=== PATIENT | male | born 1955 ===

== ENCOUNTER 2022-12-17 11:40 | Inpatient (IN) ==
[2022-12-17] MEDS ORDERED: LORazepam 2 MG/1 ML VIAL IM STA (12:25)
[2022-12-17] MEDS ORDERED: diphenhydrAMINE 50 MG/ML VIAL IM STA (12:29)
[2022-12-17] MEDS ORDERED: HALOPERIDOL LACTATE 5 MG/ML 1 ML VIAL IM STA (12:29)
--- NOTE | 2022-12-17 12:35 | Emergency Department Note ---
History of Present Illness General Chief complaint: Mental Health Evaluation Stated complaint: MHID Time Seen by Provider: 12/17/22 11:45 Source: RN notes reviewed and other (Psychiatric ed case manager) History of Present Illness Provider complaint: Mental health evaluation 67-year-old male presents emergency department via EMS from [facility]. Per nursing, the administration approached the patient about sharing room and then became verbally abusive threatening staff stating that he will kill people and started throwing things at people. Patient also stated he was going to take a gun and shoot himself. [facility] sent the patient here for 302 ev aluation. Home Medications Medication Instructions Recorded Confirmed Type Acetaminophen Pain Relief 650 mg PO Q6 PRN Fever 12/17/22 12/17/22 History Dulcolax Stool Softener (dss) See Rx Instructions .Route 12/17/22 12/17/22 History .COMPLEX constipation Glucagon Emergency Kit 1 applicator IM Q15M PRN 12/17/22 12/17/22 History hypoglycemia <60 Insta-Glucose 1 applicator PO PRN Hypoglycemia 12/17/22 History Milk of Magnesia 30 ml PO PRN Constipation 12/17/22 12/17/22 History acetaminophen 650 mg PO Q6H PRN Pain 12/17/22 12/17/22 History aripiprazole 5 mg tablet 5 mg PO QAM 12/17/22 12/17/22 History furosemide 20 mg tablet 20 mg 1XD 12/17/22 12/17/22 History lamotrigine 25 mg tablet 50 mg 1XD 12/17/22 12/17/22 History nicotine 1 patch 1XD 12/17/22 12/17/22 History pantoprazole 40 mg tablet,delayed 40 mg PO 1XD PRN Acid Reflux 12/17/22 12/17/22 History release sertraline 100 mg tablet 100 mg PO 1XD 12/17/22 12/17/22 History Past Med/Surg History Medical History (Updated 12/17/22 @ 19:07 by Flaco Guerin) COPD (chronic obstructive pulmonary disease) Diabetes Heart failure Intellectual disability Schizoaffective disorder Social History (Updated 12/17/22 @ 12:35 by Flaco Guerin) Smoking Status: Current every day smoker Feels Safe at Home: Declines to Answer Physical Exam Vital Signs Vital Signs - 24 hr 12/17/22 11:58 12/17/22 18:53 Temperature 36.9 C Temperature Source Oral Pulse Rate 101 H Pulse Rate [Right Finger] 99 H Pulse Rhythm Regular Pulse Strength Normal Respiratory Rate 18 18 Respiratory Effort / Characteristics Non-Labored Spontaneous Non-Labored Respiratory Depth Normal Normal Respiratory Pattern Regular Blood Pressure 100/73 Blood Pressure [Right Arm] 112/75 Blood Pressure Mean 82 Blood Pressure Mean [Right Arm] 87 Blood Pressure Position Sitting Pulse Oximetry 94 97 Oxygen Delivery Method Room Air Room Air Sepsis Recent Fever Within 48 Hours No Sepsis New/Unexplained Change in Mental Status No Sepsis Action Taken by Nursing No Action Required Physical Exam GENERAL: Patient appears angry punching the wall. Refusing to answer any questions. SKIN: Skin is warm and dry. He is not diaphoretic. PSYCH: Patient appears very angry. Course Course 1145: The patient was evaluated in room A7. A complete history and physical exam was performed with ed case manager Janny at bedside. Patient appears very angry punching arreguin. Patient will be tried to be calmed down with medications IM. External medical records reviewed from heart side patient has a history of intellectual disability, current everyday smoker, schizoaffective disorder, COPD, diabetes, and heart failure. 1800: Vital signs stable. Patient calmed down and allowed for labs and imaging to be conducted. No pharmacological intervention was needed. Labs within normal limits with exception of magnesium of 1.4. Magnesium replaced in the emergency department. Imaging within normal limits. Patient cleared medically. Patient denied SI or HI. Patient cleared for discharge back to [facility]. manager chinese Janny tried to contact the patient's current residence at [facility] but facility will not accept the patient. Administration made aware. See Marilyn note. [facility]. Administered Medications Discontinued Medications Diphenhydramine HCl (Diphenhydramine 50 Mg/Ml Vial) 50 mg IM NOW STA Stop: 12/17/22 12:30 Last Admin: 12/17/22 16:48 Dose: Not Given Documented By: PITO Haloperidol Lactate (Haloperidol Lactate 5 Mg/Ml 1 Ml Vial) 5 mg IM NOW STA Stop: 12/17/22 12:30 Last Admin: 12/17/22 16:49 Dose: Not Given Documented By: PITO Magnesium Sulfate/Dextrose (Magnesium Sulfate / D5w) 1 gm in 100 mls @ 100 mls/hr IV Q1H [facility] Stop: 12/17/22 16:03 Last Infusion: 12/17/22 17:02 Dose: 0 mls/hr Documented By: Admin: 12/17/22 15:52 Dose: 100 mls/hr Documented By: Infusion: 12/17/22 15:52 Dose: 100 mls/hr Documented By: Admin: 12/17/22 14:56 Dose: 100 mls/hr Documented By: RUSTY Lorazepam (Lorazepam 2 Mg/1 Ml Vial) 2 mg IM NOW STA Stop: 12/17/22 12:26 Last Admin: 12/17/22 16:48 Dose: Not Given Documented By: PITO Medical Decision Making Laboratory Data Attestation: I reviewed the patient's lab results. 12/17/22 12:39 12/17/22 12:39 Lab Results 12/17/22 12/17/22 12/17/22 Range/Units 12:33 12:39 12:39 WBC 6.69 (4.8-10.8) K/ul RBC 4.11 L (4.70-6.10) M/uL Hgb 11.2 L (14.0-18.0) g/dl Hct 34.3 L (42.0-52.0) % MCV 83.5 (80.0-100.0) fL MCH 27.3 (25.0-34.0) pg MCHC 32.7 (32.0-36.0) g/dL RDW Std Deviation 45.9 (36.4-46.3) fL RDW Coeff of Rachelle 15.1 H (11.5-14.5) % Plt Count 208 (130-400) K/uL MPV 12.7 H (9.4-12.4) fL Immature Gran % (Auto) 0.7 % Neut % (Auto) 67.6 % Lymph % (Auto) 16.6 % Keith % (Auto) 12.4 % Eos % (Auto) 1.8 % Baso % (Auto) 0.9 % Neut # (Auto) 4.52 (1.40-6.50) K/uL Lymph # (Auto) 1.11 L (1.2-3.4) K/uL Keith # (Auto) 0.83 H (0.11-0.59) K/uL Eos # (Auto) 0.12 (0-0.50) K/uL Baso # (Auto) 0.06 (0-0.2) K/uL Immature Gran # (Auto) 0.05 (0.01-0.20) K/uL Sodium 139 (136-145) mmol/L Potassium 3.8 (3.5-5.1) mmol/L Chloride 101 (98-107) mmol/L Carbon Dioxide 30 (21-32) mmol/L Anion Gap 8 (3-11) BUN 17 (6-23) mg/dl Creatinine 0.90 (0.6-1.4) mg/dl Est Cr Clr Drug Dosing 89.7 ml/min Est GFR ( Amer) 103.5 ml/min Est GFR (Non-Af Amer) 89.3 ml/min BUN/Creatinine Ratio 18.9 (10-20) Glucose 144 H (70-99(Fasting)) mg/dl Calcium 9.5 (8.5-10.1) mg/dl Magnesium 1.4 L (1.7-2.4) mg/dl Total Bilirubin 0.3 (0.2-1.0) mg/dl AST 13 (13-39) U/L ALT 18 (7-52) U/L Alkaline Phosphatase 66 (34-104) U/L Total Protein 6.9 (6.0-8.3) gm/dl Albumin 4.1 (3.4-5.0) gm/dl Globulin 2.8 (2.5-4.0) gm/dl Albumin/Globulin Ratio 1.5 (0.9-2) Lipase 16 (11-82) U/L TSH (0.300-4.500) uIu/ml Urine Color Urine Appearance (Clear) Urine pH (4.5-7.5) Ur Specific [place] (1.000-1.030) Urine Protein (Negative) Urine Glucose (UA) (Negative) Urine Ketones (Negative) Urine Blood (Negative) Urine Nitrite (Negative) Urine Bilirubin (Negative) Urine Urobilinogen (Negative) Ur Leukocyte Esterase (Negative) Urine WBC (Auto) (0-5) /hpf Urine RBC (Auto) (0-4) /hpf U Hyaline Cast (Auto) (0-5) /lpf U Epithel Cells (Auto) (0-5) /lpf Urine Bacteria (Auto) (Negative) Salicylates (3.0-30) mg/dl Urine Opiates Screen (Neg) Ur Methadone, Qual (Neg) Acetaminophen (10-30) ug/ml Urine Barbiturates (Neg) Ur Phencyclidine (PCP) (Neg) U Amphetamin/Meth Scrn (Neg) MDMA (Ecstasy) Screen (Neg) U Benzodiazepines Scrn (Neg) Ur Cocaine Metabolite (Neg) U Marijuana (THC) Screen (Neg) Ethyl Alcohol mg/dL (<10.0) mg/dl SARS-CoV-2, RNA, NAAT NEGATIVE (NEGATIVE) 12/17/22 12/17/22 12/17/22 Range/Units 12:39 12:39 12:39 WBC (4.8-10.8) K/ul RBC (4.70-6.10) M/uL Hgb (14.0-18.0) g/dl Hct (42.0-52.0) % MCV (80.0-100.0) fL MCH (25.0-34.0) pg MCHC (32.0-36.0) g/dL RDW Std Deviation (36.4-46.3) fL RDW Coeff of Rachelle (11.5-14.5) % Plt Count (130-400) K/uL MPV (9.4-12.4) fL Immature Gran % (Auto) % Neut % (Auto) % Lymph % (Auto) % Keith % (Auto) % Eos % (Auto) % Baso % (Auto) % Neut # (Auto) (1.40-6.50) K/uL Lymph # (Auto) (1.2-3.4) K/uL Keith # (Auto) (0.11-0.59) K/uL Eos # (Auto) (0-0.50) K/uL Baso # (Auto) (0-0.2) K/uL Immature Gran # (Auto) (0.01-0.20) K/uL Sodium (136-145) mmol/L Potassium (3.5-5.1) mmol/L Chloride (98-107) mmol/L Carbon Dioxide (21-32) mmol/L Anion Gap (3-11) BUN (6-23) mg/dl Creatinine (0.6-1.4) mg/dl Est Cr Clr Drug Dosing ml/min Est GFR ( Amer) ml/min Est GFR (Non-Af Amer) ml/min BUN/Creatinine Ratio (10-20) Glucose (70-99(Fasting)) mg/dl Calcium (8.5-10.1) mg/dl Magnesium (1.7-2.4) mg/dl Total Bilirubin (0.2-1.0) mg/dl AST (13-39) U/L ALT (7-52) U/L Alkaline Phosphatase (34-104) U/L Total Protein (6.0-8.3) gm/dl Albumin (3.4-5.0) gm/dl Globulin (2.5-4.0) gm/dl Albumin/Globulin Ratio (0.9-2) Lipase (11-82) U/L TSH 2.209 (0.300-4.500) uIu/ml Urine Color Urine Appearance (Clear) Urine pH (4.5-7.5) Ur Specific [place] (1.000-1.030) Urine Protein (Negative) Urine Glucose (UA) (Negative) Urine Ketones (Negative) Urine Blood (Negative) Urine Nitrite (Negative) Urine Bilirubin (Negative) Urine Urobilinogen (Negative) Ur Leukocyte Esterase (Negative) Urine WBC (Auto) (0-5) /hpf Urine RBC (Auto) (0-4) /hpf U Hyaline Cast (Auto) (0-5) /lpf U Epithel Cells (Auto) (0-5) /lpf Urine Bacteria (Auto) (Negative) Salicylates < 3.0 L (3.0-30) mg/dl Urine Opiates Screen (Neg) Ur Methadone, Qual (Neg) Acetaminophen < 3 L (10-30) ug/ml Urine Barbiturates (Neg) Ur Phencyclidine (PCP) (Neg) U Amphetamin/Meth Scrn (Neg) MDMA (Ecstasy) Screen (Neg) U Benzodiazepines Scrn (Neg) Ur Cocaine Metabolite (Neg) U Marijuana (THC) Screen (Neg) Ethyl Alcohol mg/dL < 10.0 (<10.0) mg/dl SARS-CoV-2, RNA, NAAT (NEGATIVE) 12/17/22 12/17/22 Range/Units 14:15 14:15 WBC (4.8-10.8) K/ul RBC (4.70-6.10) M/uL Hgb (14.0-18.0) g/dl Hct (42.0-52.0) % MCV (80.0-100.0) fL MCH (25.0-34.0) pg MCHC (32.0-36.0) g/dL RDW Std Deviation (36.4-46.3) fL RDW Coeff of Rachelle (11.5-14.5) % Plt Count (130-400) K/uL MPV (9.4-12.4) fL Immature Gran % (Auto) % Neut % (Auto) % Lymph % (Auto) % Keith % (Auto) % Eos % (Auto) % Baso % (Auto) % Neut # (Auto) (1.40-6.50) K/uL Lymph # (Auto) (1.2-3.4) K/uL Keith # (Auto) (0.11-0.59) K/uL Eos # (Auto) (0-0.50) K/uL Baso # (Auto) (0-0.2) K/uL Immature Gran # (Auto) (0.01-0.20) K/uL Sodium (136-145) mmol/L Potassium (3.5-5.1) mmol/L Chloride (98-107) mmol/L Carbon Dioxide (21-32) mmol/L Anion Gap (3-11) BUN (6-23) mg/dl Creatinine (0.6-1.4) mg/dl Est Cr Clr Drug Dosing ml/min Est GFR ( Amer) ml/min Est GFR (Non-Af Amer) ml/min BUN/Creatinine Ratio (10-20) Glucose (70-99(Fasting)) mg/dl Calcium (8.5-10.1) mg/dl Magnesium (1.7-2.4) mg/dl Total Bilirubin (0.2-1.0) mg/dl AST (13-39) U/L ALT (7-52) U/L Alkaline Phosphatase (34-104) U/L Total Protein (6.0-8.3) gm/dl Albumin (3.4-5.0) gm/dl Globulin (2.5-4.0) gm/dl Albumin/Globulin Ratio (0.9-2) Lipase (11-82) U/L TSH (0.300-4.500) uIu/ml Urine Color Yellow Urine Appearance Clear (Clear) Urine pH 5.5 (4.5-7.5) Ur Specific [place] 1.012 (1.000-1.030) Urine Protein Negative (Negative) Urine Glucose (UA) Negative (Negative) Urine Ketones Negative (Negative) Urine Blood Negative (Negative) Urine Nitrite Negative (Negative) Urine Bilirubin Negative (Negative) Urine Urobilinogen Negative (Negative) Ur Leukocyte Esterase Trace H (Negative) Urine WBC (Auto) 5-10 H (0-5) /hpf Urine RBC (Auto) 0-4 (0-4) /hpf U Hyaline Cast (Auto) 1-5 (0-5) /lpf U Epithel Cells (Auto) 10-20 H (0-5) /lpf Urine Bacteria (Auto) Negative (Negative) Salicylates (3.0-30) mg/dl Urine Opiates Screen Neg (Neg) Ur Methadone, Qual Neg (Neg) Acetaminophen (10-30) ug/ml Urine Barbiturates Neg (Neg) Ur Phencyclidine (PCP) Neg (Neg) U Amphetamin/Meth Scrn Neg (Neg) MDMA (Ecstasy) Screen Neg (Neg) U Benzodiazepines Scrn Neg (Neg) Ur Cocaine Metabolite Neg (Neg) U Marijuana (THC) Screen Neg (Neg) Ethyl Alcohol mg/dL (<10.0) mg/dl SARS-CoV-2, RNA, NAAT (NEGATIVE) Imaging Data Attestation: I personally reviewed and interpreted this imaging study as follows: Radiologist's Impression: Head CT 12/17/22 12:25 CT OF THE HEAD WITHOUT CONTRAST CLINICAL HISTORY: Altered mental status. Possible COMPARISON STUDY: No previous studies for comparison. CT DOSE: 1834.47 mGy.cm TECHNIQUE: Helical axial images of the head were obtained without IV contrast. Automated exposure control was utilized for the study. A dose lowering technique was utilized adhering to the principles of ALARA. FINDINGS: No acute intracranial hemorrhage, midline shift or mass effect is present. Ventricular system is unremarkable. Basal cisterns are patent. There are no extra axial collections. White matter hypodensity suggests small vessel disease. There are no findings to suggest acute dural sinus thrombosis or acute territorial infarct. Numerous small several lucencies are indeterminate although probably benign. Small amount of fluid within the bilateral mastoid air cells is noted. Opacified posterior right ethmoid air cell is noted. There are minimal secretions within the left maxillary sinus. IMPRESSION: No acute intracranial findings. ACT 112: Negative or not required by law. Electronically signed by: Ty Diego M.D. 12/17/2022 1:21 PM [facility] Narrative 1145: The patient was evaluated in room A7. A complete history and physical exam was performed with ed case manager Janny at bedside. Patient appears very angry punching arreguin. Patient will be tried to be calmed down with medications IM. External medical records reviewed from heart side patient has a history of intellectual disability, current everyday smoker, schizoaffective disorder, COPD, diabetes, and heart failure. 1800: Vital signs stable. Patient calmed down and allowed for labs and imaging to be conducted. No pharmacological intervention was needed. Labs within normal limits with exception of magnesium of 1.4. Magnesium replaced in the emergency department. Imaging within normal limits. Patient cleared medically. Patient denied SI or HI. Patient cleared for discharge back to [facility]. manager chinese Janny tried to contact the patient's current residence at [facility] but facility will not accept the patient. Administration made aware. See Marilyn note. Patient will be admitted to the [facility] hospitalist team Dr. Ambrocio notified. Impression & Plan Hypomagnesemia, Schizoaffective disorder, Intellectual disability Discharge Plan Visit Data Chief Complaint: Mental Health Evaluation Stated Complaint: MHID ED Provider: Flaco Guerin Discharge Problem: Hypomagnesemia, Schizoaffective disorder, Intellectual disability Patient Disposition: Being Evaluated by Hospitalist Forms Stand Alone Forms: [facility], Suicide Prevention Resources Prescriptions Prescriptions: No Action Acetaminophen Pain Relief tablet 650 mg PO Q6 MDD 3000 mg PRN (Reason: Fever) acetaminophen tablet 650 mg PO Q6H MDD 3000mg PRN (Reason: Pain) sertraline 100 mg tablet 100 mg PO 1XD lamotrigine 25 mg tablet 50 mg 1XD Rx Instructions: Lamictal XR pantoprazole 40 mg tablet,delayed release (DR/EC) 40 mg PO 1XD PRN (Reason: Acid Reflux) furosemide 20 mg tablet 20 mg 1XD aripiprazole 5 mg tablet 5 mg PO QAM Dulcolax Stool Softener (dss) suppository See Rx Instructions .ROUTE .COMPLEX Rx Instructions: 10 mg rectally in the evening of the third day with no BM Glucagon Emergency Kit 1 applicator IM Q15M PRN (Reason: hypoglycemia <60) Insta-Glucose 1 applicator PO PRN (Reason: Hypoglycemia) Milk of Magnesia 1,200 mg/15 ml liquid 30 ml PO PRN (Reason: Constipation) Rx Instructions: 30ml po on morning of 3rd day with no bowel movement nicotine 14 mg/24 hr 1 patch 1XD Rx Instructions: one patch per day for 2 weeks; end on 12/20/22 Referrals Referrals: [facility] [Primary Care Provider] -
--- NOTE | 2022-12-17 13:24 | CT Scan Report ---
CT OF THE HEAD WITHOUT CONTRAST CLINICAL HISTORY: Altered mental status. Possible COMPARISON STUDY: No previous studies for comparison. CT DOSE: 1834.47 mGy.cm TECHNIQUE: Helical axial images of the head were obtained without IV contrast. Automated exposure con trol was utilized for the study. A dose lowering technique was utilized adhering to the principles o f ALARA. FINDINGS: No acute intracranial hemorrhage, midline shift or mass effect is present. Ventricular syst em is unremarkable. Basal cisterns are patent. There are no extra axial collections. White matter hyp odensity suggests small vessel disease. There are no findings to suggest acute dural sinus thrombosis or acute territorial infarct. Numerous small several lucencies are indeterminate although probably b enign. Small amount of fluid within the bilateral mastoid air cells is noted. Opacified posterior rig ht ethmoid air cell is noted. There are minimal secretions within the left maxillary sinus. IMPRESSION: No acute intracranial findings. ACT 112: Negative or not required by law. Electronically signed by: Ty Diego M.D. 12/17/2022 1:21 PM
[2022-12-17 13:50] LABS: Acetaminophen < 3 ug/ml (10-30); Salicylate < 3.0 mg/dl (3.0-30)
[2022-12-17 13:53] LABS: Albumin Globulin Ratio 1.5 (0.9-2); Albumin Level 4.1 gm/dl (3.4-5.0); BUN Creatinine Ratio 18.9 (10-20); Bilirubin,Total 0.3 mg/dl (0.2-1.0); Calcium 9.5 mg/dl (8.5-10.1); Creatinine Clr Calc Pharmacy 89.7 ml/min; Est GFR (African American) 103.5 ml/min; Est GFR (Non-African American) 89.3 ml/min; Globulin 2.8 gm/dl (2.5-4.0); Magnesium 1.4 mg/dl (1.7-2.4); Potassium 3.8 mmol/L (3.5-5.1); Total Protein 6.9 gm/dl (6.0-8.3)
[2022-12-17 13:57] LABS: Basophils # (auto) 0.06 K/uL (0-0.2); Basophils % (auto) 0.9 %; Eosinophils # (auto) 0.12 K/uL (0-0.50); Eosinophils % (auto) 1.8 %; Hematocrit (blood only) 34.3 % (42.0-52.0); Hemoglobin 11.2 g/dl (14.0-18.0); Immature Granulocytes # (auto) 0.05 K/uL (0.01-0.20); Immature Granulocytes % (auto) 0.7 %; Lymphocytes # (auto) 1.11 K/uL (1.2-3.4); Lymphocytes % (auto) 16.6 %; Mean Corpuscular Hemoglobin 27.3 pg (25.0-34.0); Mean Corpuscular Hgb Conc 32.7 g/dL (32.0-36.0); Mean Corpuscular Volume 83.5 fL (80.0-100.0); Mean Platelet Volume 12.7 fL (9.4-12.4); Monocytes # (auto) 0.83 K/uL (0.11-0.59); Monocytes % (auto) 12.4 %; Neutrophils # (auto) 4.52 K/uL (1.40-6.50); Neutrophils % (auto) 67.6 %; Platelet Count 208 K/uL (130-400); RDW Coefficient of Variation 15.1 % (11.5-14.5); RDW Standard Deviation 45.9 fL (36.4-46.3); Red Blood Count 4.11 M/uL (4.70-6.10); White Blood Count 6.69 K/ul (4.8-10.8)
[2022-12-17] MEDS: MAGNESIUM SULFATE / D5W 1 GM/100 ML BAG IV SCH ×2 (14:56→15:52)
[2022-12-17 15:36] LABS: Appearance Urine Clear (Clear); Bacteria Urine Automated Negative (Negative); Bilirubin Urine Negative (Negative); Blood Urine Negative (Negative); Color Urine Yellow; Glucose Urine UA Negative (Negative); Ketones Urine Negative (Negative); Leukocyte Esterase Urine Trace (Negative); Nitrite Urine Negative (Negative); Protein Urine Negative (Negative); RBC Urine Automated 0-4 /hpf (0-4); Specific Gravity Urine 1.012 (1.000-1.030); Urobilinogen Urine Negative (Negative); pH Urine 5.5 (4.5-7.5)
[2022-12-17 16:00] LABS: Amphetamines+Metham, Urine Neg (Neg); Barbiturates, Urine Neg (Neg); Benzodiazepine, Urine Neg (Neg); Cocaine, Urine Neg (Neg); MDMA (Ecstacy), Urine Neg (Neg); Methadone, Urine Neg (Neg); Opiate, Urine Neg (Neg); Phencyclidine, Urine Neg (Neg)
--- NOTE | 2022-12-17 19:09 | History & Physical Report ---
Date of Service December 17, 2022 Assessment & Plan (1) Homeless: Plan: -Admit to med/surge -The patient is currently afebrile, hemodynamically stable, and stable on RA -Was sent in from [facility] for 302 eval due to aggression, suicidal threats -Workup has been negative but [facility] refuses to take the patient back -CM will be filing a complaint with the Department of Health and will continue to assist with placement of the patient -Will order PT/OT consults -Patient is currently calm, cooperative, and denies suicidal and homicidal ideations -HR was irregular on exam, unsure if previous arrhythmia, will obtain STAT ECG for rhythm interpretation and QTc monitoring -S/P 2 mg IV ativan, 5 mg IM haldol, and 50 mg IM benadryl prior to admission, for now will order PRN IV ativan for aggression/agitiation -Would hold additional QT prolonging medications until we know his QTc -Will place psychiatry consult -AM CBC and BMP (2) Hypomagnesemia: Plan: -Noted to be 1.4 today -S/P 2g IV mag in the ED -Monitor am mag level (3) Heart failure: Plan: -Patient with a CHF in his problem list, no previous echos available -Patient has a systolic murmur on exam -Examines euvolemic at this time -Does have lasix on his med rec but will hold for now as he is euvolemic -Could consider a TTE during his admission if needed (4) Diabetes: Plan: -Does not appear to be on an antihyperglycemic regimen -Will start with 5 units lantus BID, correction factor of 40 with carb ratio of 14 -Monitor BSG ACHS, goal is 110-140 -DM II diet -Will obtain AM A1c (5) COPD (chronic obstructive pulmonary disease): Plan: -Stable on RA -No current breathing treatments on med rec -Will start with pulm hygiene and prn DuoNebs (6) Intellectual disability: Plan: -It does not appear that the patient has decision making capabilities at this time (7) Schizoaffective disorder: Plan: -Continue Abilify, Lamictal, and sertraline Plan The patient was discussed with Dr. Ambrocio at the time of the admission History of Present Illness Chief Complaint: 302 evaluation Primary Care Provider: [facility] Mustapha is a 67 year old male with a PMH significant for CHF, COPD, DM II, schizoaffective disorder, intellectual disability who presented to the [facility] ED on 12/17/22 from [facility] for a 302 evaluation. Per the ED staff, the staff at [facility] spoke to the patient earlier today regarding getting a roommate. The patient reportedly became incredibly agitated, verbally abusing, was throwing objects at staff and threatened to kill himself with a gun. In the ED, the patient was found to be afebrile hemodynamically stable, stable on RA. CBC shows a normal WBC, stable Hgb, and platelet count, CMP shows stable cr at 0.9 with a mag of 1.4 but otherwise stable electrolytes, glucose of 144, LFTs WNL, TSH WNL, UA with trace leukocyte esterase, 5-10 WBCs, and negative bacteria, urine tox screen and covid negative. The ED staff did not think that the patient was suicidal or homicidal and attempted to send the patient back to [facility] but they refused to take the patient back. CM will continue to help with the current situation and they will be filling a complaint with the Department of Health. Prior to admission the patient was given 50 mg IM benadryl, 5 mg IM haldol, 2 mg IV ativan, and 2 bags of IV magnesium. At the time of the exam the patient was sitting comfortably on the side of his bed in no acute distress. History is difficult to obtain due to the patient's baseline mental status. He states that he was sent to the ER because he woke up in another room and got angry. He states that he is homeless and has nowhere else to go. He then told me that both of his parent's passed but then came back to life years ago. He spoke about his mom "walking through [place]". I asked him if felt as though he was going to hurt himself or hurt others he said "no" to both. He had no complaints at the time of the exam. I asked him to be knd to our staff and we will work to find a safe place for him to go and he was in agreement. The patient did mention that he gets seizures and takes "seizure medication" but is unsure of when his last seizure was. Please refer to Dr. Ambrocio's attestation for any changes to the treatment plan Allergies Allergy/AdvReac Type Severity Reaction Status Date / Time No Known Allergies Allergy Unverified 12/17/22 19:54 Home Medications Medication Instructions Recorded Confirmed Type Acetaminophen Pain Relief 650 mg PO Q6 PRN Fever 12/17/22 12/17/22 History Dulcolax Stool Softener (dss) See Rx Instructions .Route 12/17/22 12/17/22 History .COMPLEX constipation Glucagon Emergency Kit 1 applicator IM Q15M PRN 12/17/22 12/17/22 History hypoglycemia <60 Insta-Glucose 1 applicator PO PRN Hypoglycemia 12/17/22 History Milk of Magnesia 30 ml PO PRN Constipation 12/17/22 12/17/22 History acetaminophen 650 mg PO Q6H PRN Pain 12/17/22 12/17/22 History aripiprazole 5 mg tablet 5 mg PO QAM 12/17/22 12/17/22 History furosemide 20 mg tablet 20 mg 1XD 12/17/22 12/17/22 History lamotrigine 25 mg tablet 50 mg 1XD 12/17/22 12/17/22 History nicotine 1 patch 1XD 12/17/22 12/17/22 History pantoprazole 40 mg tablet,delayed 40 mg PO 1XD PRN Acid Reflux 12/17/22 12/17/22 History release sertraline 100 mg tablet 100 mg PO 1XD 12/17/22 12/17/22 History Past Med/Surg History Medical History (Updated 12/18/22 @ 15:55 by Ford Perez MD) COPD (chronic obstructive pulmonary disease) Diabetes Heart failure Intellectual disability Schizoaffective disorder Social History (Updated 12/17/22 @ 12:35 by Flaco Guerin) Smoking Status: Smoker, status unknown Communication Ability: Effective Feels Safe at Home: Declines to Answer Assistive Devices: None Review of Systems Review of Systems: Denies current fever, chills, headache, changes in vision, hearing, taste, and smell, chest pain, SOB, cough, abdominal pain, nausea, vomiting, diarrhea, hematemesis, melena, dysuria, hematuria, suicidal ideations, homicidal ideations, and recent falls. All systems have been reviewed and are otherwise negative. Physical Exam Physical Exam: Physical Exam: General: In no acute distress, stated age, poor hygiene, chronically ill appearing HEENT: Normocephalic, atraumatic, no scleral icterus, pupils around round, symmetrical, and reactive to light, moist mucus membranes, trachea midline, no thyromegaly Chest/Pulm: No respiratory distress, symmetrical chest expansion, expiratory wheezing noted throughout Cardiac: irregular rate and rhythm, systolic murmur noted Abdomen: Negative for ascites and bruising, normoactive bowel sounds, soft, non-tender to palpation throughout Musculoskeletal: Symmetrical and without signs of acute trauma, upper and lower extremities with full ROM, no atrophy, spasticity, or flaccidity Extremities: Radial, dorsalis pedis, and posterior tibial pulses are intact and symmetrical, no edema noted in the BL LE's Skin: Warm, dry, no rashes , lesions, or scars noted Neuro: Alert and oriented to person only, not oriented to place, month, or year, no focal defects, Psych: No acute distress, calm and cooperative during the exam Results & Data Results & Data ([facility]) Vital Signs (Past 12 Hours) Vital Signs Temp Pulse Pulse Resp BP BP Pulse Ox 12/17/22 18:53 99 H 18 112/75 97 12/17/22 11:58 36.9 C 101 H 18 100/73 94 O2 Del Method 12/17/22 18:53 Room Air 12/17/22 11:58 Room Air Laboratory Results Abnormal lab results 12/17/22 12/17/22 12/17/22 Range/Units 12:39 12:39 12:39 RBC 4.11 L (4.70-6.10) M/uL Hgb 11.2 L (14.0-18.0) g/dl Hct 34.3 L (42.0-52.0) % RDW Coeff of Rachelle 15.1 H (11.5-14.5) % MPV 12.7 H (9.4-12.4) fL Lymph # (Auto) 1.11 L (1.2-3.4) K/uL Gosper # (Auto) 0.83 H (0.11-0.59) K/uL Glucose 144 H (70-99(Fasting)) mg/dl Magnesium 1.4 L (1.7-2.4) mg/dl Ur Leukocyte Esterase (Negative) Urine WBC (Auto) (0-5) /hpf U Epithel Cells (Auto) (0-5) /lpf Salicylates < 3.0 L (3.0-30) mg/dl Acetaminophen < 3 L (10-30) ug/ml 12/17/22 Range/Units 14:15 RBC (4.70-6.10) M/uL Hgb (14.0-18.0) g/dl Hct (42.0-52.0) % RDW Coeff of Rachelle (11.5-14.5) % MPV (9.4-12.4) fL Lymph # (Auto) (1.2-3.4) K/uL Gosper # (Auto) (0.11-0.59) K/uL Glucose (70-99(Fasting)) mg/dl Magnesium (1.7-2.4) mg/dl Ur Leukocyte Esterase Trace H (Negative) Urine WBC (Auto) 5-10 H (0-5) /hpf U Epithel Cells (Auto) 10-20 H (0-5) /lpf Salicylates (3.0-30) mg/dl Acetaminophen (10-30) ug/ml Diagnostic Findings Head CT 12/17/22 12:25 CT OF THE HEAD WITHOUT CONTRAST CLINICAL HISTORY: Altered mental status. Possible COMPARISON STUDY: No previous studies for comparison. CT DOSE: 1834.47 mGy.cm TECHNIQUE: Helical axial images of the head were obtained without IV contrast. Automated exposure control was utilized for the study. A dose lowering technique was utilized adhering to the principles of ALARA. FINDINGS: No acute intracranial hemorrhage, midline shift or mass effect is present. Ventricular system is unremarkable. Basal cisterns are patent. There are no extra axial collections. White matter hypodensity suggests small vessel disease. There are no findings to suggest acute dural sinus thrombosis or acute territorial infarct. Numerous small several lucencies are indeterminate although probably benign. Small amount of fluid within the bilateral mastoid air cells is noted. Opacified posterior right ethmoid air cell is noted. There are minimal secretions within the left maxillary sinus. IMPRESSION: No acute intracranial findings. ACT 112: Negative or not required by law. Electronically signed by: Ty Diego M.D. 12/17/2022 1:21 PM ECG Additional Comments: No ECG available at the time of the admission, will obtain one now Code Status & VTE Plan Code Status Full code Supervising Physician Co-Signing Physician Notes I personally saw and examined the patient. I verified all choudhury points and agree with Salvatore Kennedy PA-C with the following exceptions and/or additions: 67 year old male. Abandoned here by senior care. No acute medical or inpatient psychiatric needs identified. Unable to get any history from the patient. Replace magnesium but low suspicion causing any acute problems. PG Care Time/CCT Total # of Minutes Spent Total Time Spent with Patient: Total time spent is greater than 50% in coordination of care (as documented) at patient's floor/unit and/or counseling patient: C[place] [address] INT INP/OBS CARE MIN Patient Type Established Medical Decision Making High Complexity Diagnoses Homeless Z59.00 Hypomagnesemia E83.42 Heart failure I50.9 Diabetes E11.9 COPD (chronic obstructive pulmonary disease) J44.9 Intellectual disability F79 Schizoaffective disorder F25.9 Schizoaffective disorder type: unspecified (1) Schizoaffective disorder Schizoaffective disorder type: unspecified Qualified Code(s): F25.9 - Schizoaffective disorder, unspecified
[2022-12-17] MEDS ORDERED: CARBOHYDRATES FOR HYPOGLYCEMIA PO PRN (19:31)
[2022-12-17] MEDS ORDERED: GLUCOSE 40% GEL 15 GM TUBE PO PRN (19:31)
[2022-12-17] MEDS ORDERED: GLUCOSE 10 TAB/TUBE PO PRN (19:31)
[2022-12-17] MEDS ORDERED: DEXTROSE 50% 50 ML SYRINGE IV PRN (19:31)
[2022-12-17] MEDS ORDERED: GLUCAGON FOR INJ 1 MG VIAL SQ PRN (19:31)
[2022-12-17] MEDS ORDERED: PANTOprazole 40 MG TAB PO PRN (19:38)
[2022-12-17] MEDS ORDERED: ACETAMINOPHEN 325 MG TAB PO PRN (19:38)
[2022-12-17] MEDS ORDERED: Patient's ALLERGY Info needs ENTERED SCH (20:00)
[2022-12-17] MEDS: INSULIN ASPART PER UNIT SC SCH (22:07)
[2022-12-17] MEDS: LANTUS PER UNIT CHARGE SQ SCH (22:13)
[2022-12-18] MEDS: ALBUT/IPRATROP 3MG/0.5MG NEB 3 ML VIAL NEB SCH ×3 (08:24→15:18)
[2022-12-18] MEDS ORDERED: lamoTRIgine 25 MG TAB PO SCH (09:00)
[2022-12-18] MEDS: INSULIN ASPART PER UNIT SC SCH ×3 (10:32→18:31)
[2022-12-18] MEDS: LANTUS PER UNIT CHARGE SQ SCH (10:32)
[2022-12-18] MEDS: SERTRALINE HCL 100 MG TABLET PO SCH (11:00)
[2022-12-18] MEDS: MAGNESIUM OXIDE 400 MG TAB PO SCH (11:00)
[2022-12-18] MEDS: ARIPiprazole 5 MG TAB PO SCH (11:00)
[2022-12-18] MEDS: LORazepam 2 MG/1 ML VIAL IV PRN (12:58)
[2022-12-18] MEDS ORDERED: OLANZapine 10 MG/2.1 ML SDV IM PRN (13:05)
[2022-12-18 13:21] LABS: Hematocrit (blood only) 35.4 % (42.0-52.0); Hemoglobin 11.4 g/dl (14.0-18.0); Mean Corpuscular Hemoglobin 27.3 pg (25.0-34.0); Mean Corpuscular Hgb Conc 32.2 g/dL (32.0-36.0); Mean Corpuscular Volume 84.7 fL (80.0-100.0); Mean Platelet Volume 12.2 fL (9.4-12.4); Platelet Count 211 K/uL (130-400); RDW Coefficient of Variation 15.1 % (11.5-14.5); RDW Standard Deviation 46.8 fL (36.4-46.3); Red Blood Count 4.18 M/uL (4.70-6.10); White Blood Count 6.87 K/ul (4.8-10.8)
[2022-12-18 13:28] LABS: Estimated Average Glucose 137 mg/dl; Hemoglobin A1C 6.4 % (4.5-5.6)
[2022-12-18 13:51] LABS: Calcium 9.6 mg/dl (8.5-10.1); Magnesium 2.1 mg/dl (1.7-2.4); Potassium 4.2 mmol/L (3.5-5.1)
[2022-12-18 13:57] LABS: BUN Creatinine Ratio 19.4 (10-20); Creatinine Clr Calc Pharmacy 82.4 ml/min; Est GFR (African American) 93.4 ml/min; Est GFR (Non-African American) 80.6 ml/min
[2022-12-18] MEDS ORDERED: ALBUT/IPRATROP 3MG/0.5MG NEB 3 ML VIAL NEB PRN (15:37)
--- NOTE | 2022-12-18 15:58 | Hospitalist Progress Note ---
Date of Service December 18, 2022 Assessment & Plan (1) Homeless: Plan: Supportive care. Case management intervention and placement. [facility] refuses to take him back. (2) Hypomagnesemia: Plan: Oral and IV replacement ordered. Serial labs (3) Heart failure: Plan: No overt CHF on admission. No previous echos available. Euvolemic at this time . Monitor intake and output. Could consider a TTE during his admission if needed (4) Diabetes: Plan: Does not appear to be on an antihyperglycemic regimen . Lantus started this admission for glucose control. Sliding scale coverage as needed. ADA diet. (5) COPD (chronic obstructive pulmonary disease): Plan: Stable on RA . prn DuoNebs (6) Intellectual disability: Plan: Supportive care. It does not appear that the patient has decision making capabilities at this time (7) Schizoaffective disorder: Plan: Continue Abilify, Lamictal, and sertraline. Psychiatry consult pending (8) Behavior disorder: Plan: Seroquel 25 mg twice a day has been added. Will use Zyprexa IM on a as needed basis. Await psychiatry consultation and recommendations Plan To be determined. He will need placement Admission and Anticipated Discharge Date Admission Date: December 17, 2022 Subjective The patient has intermittent agitation and tried to elope from the hospital to day. Started Seroquel 25 mg twice a day. Will use Zyprexa IM on a as needed basis. Psychiatry consultation is pending. Review of Systems Review of Systems: The patient would not cooperate with review of systems Physical Exam Physical Exam: General-alert. Uncooperative HEENT-head atraumatic and normocephalic, pupils equal and reactive to light, extraocular muscles intact Neck-no lymphadenopathy or thyromegaly, trachea midline Chest-clear to auscultation percussion. No rales wheezing or rhonchi Cardiac-regular rate and rhythm, normal S1 and S2 Abdomen-normal bowel sounds, nontender, no hepatosplenomegaly Extremities-no cyanosis, clubbing, or edema Neuro-cranial nerves II through XII intact, motor and sensory function within normal limits, strength symmetrical , no focal deficits Psych-difficult to assess. Uncooperative Results & Data Results & Data ([facility]) Vital Signs (Past 12 Hours) Vital Signs Temp Pulse Resp BP Pulse Ox O2 Del Method 12/18/22 15:20 87 18 96 Room Air 12/18/22 08:55 Room Air 12/18/22 08:38 36.9 C 83 18 146/86 H 96 Room Air Laboratory Results 12/18/22 12:55 12/18/22 12:55 PG Care Time/CCT Total # of Minutes Spent Total Time Spent with Patient: Total time spent is greater than 50% in coordination of care (as documented) at patient's floor/unit and/or counseling patient: Coding Level of Care Code 42476 SUB INP/OBS CARE 3/50MIN Diagnoses Homeless Z59.00 Hypomagnesemia E83.42 Heart failure I50.9 Diabetes E11.9 COPD (chronic obstructive pulmonary disease) J44.9 Intellectual disability F79 Schizoaffective disorder F25.9 Schizoaffective disorder type: unspecified Behavior disorder (1) Schizoaffective disorder Schizoaffective disorder type: unspecified Qualified Code(s): F25.9 - Schizoaffective disorder, unspecified
--- NOTE | 2022-12-18 20:50 | Psychiatric Consultation ---
Date of Consultation December 18, 2022 Impression / Recommendations Impression History of schizoaffective disorder with reported recent aggressive behavior. Unfortunately, he is not responding right now so a useful assessment is not possible at the moment (1) Schizoaffective disorder: Schizoaffective disorder type: unspecified Qualified Code(s): F25.9 - Schizoaffective disorder, unspecified Plan We will continue efforts to make an appropriate assessment Psych History Identifying Data 67 y/o man with history of schizoaffective disorder who was sent to the ED for aggressive behavior Chief Complaint Pt unresponsive History of Present Illness Pt [facility]. From the ED he was admitted to the medical service with some concern about a possible arrhythmia. Not long after arrival to the inpatient unit he threw his lunch tray and tried to elope via the elevator. When I went to see him this evening he was completely unresponsive to voice or tough (though I did have the impression he was awake). Past Psychiatric History Previous Psych History: Carries a diagnosis of schizoaffective disorder Allergies Allergy/AdvReac Type Severity Reaction Status Date / Time No Known Allergies Allergy Unverified 12/17/22 19:54 Home Medications Medication Instructions Recorded Confirmed Type Acetaminophen Pain Relief 650 mg PO Q6 PRN Fever 12/17/22 12/17/22 History Dulcolax Stool Softener (dss) See Rx Instructions .Route 12/17/22 12/17/22 History .COMPLEX constipation Glucagon Emergency Kit 1 applicator IM Q15M PRN 12/17/22 12/17/22 History hypoglycemia <60 Insta-Glucose 1 applicator PO PRN Hypoglycemia 12/17/22 History Milk of Magnesia 30 ml PO PRN Constipation 12/17/22 12/17/22 History acetaminophen 650 mg PO Q6H PRN Pain 12/17/22 12/17/22 History aripiprazole 5 mg tablet 5 mg PO QAM 12/17/22 12/17/22 History furosemide 20 mg tablet 20 mg 1XD 12/17/22 12/17/22 History lamotrigine 25 mg tablet 50 mg 1XD 12/17/22 12/17/22 History nicotine 1 patch 1XD 12/17/22 12/17/22 History pantoprazole 40 mg tablet,delayed 40 mg PO 1XD PRN Acid Reflux 12/17/22 12/17/22 History release sertraline 100 mg tablet 100 mg PO 1XD 12/17/22 12/17/22 History Patient History Medical History (Updated 12/18/22 @ 15:55 by Ford Perez MD) COPD (chronic obstructive pulmonary disease) Diabetes Heart failure Intellectual disability Schizoaffective disorder Social History (Updated 12/17/22 @ 12:35 by Flaco Guerin) Smoking Status: Smoker, status unknown Communication Ability: Effective Feels Safe at Home: Declines to Answer Assistive Devices: None Physical Exam Psychiatric: no spontaneous speech or movement wearing hospital gown Eye Contact: + poor eye contact no spontaneous movement Speech: + mute Affect: + flat affect can't be assessed Vital Signs (Past 24 Hours): Last Vital Signs Temp 36.7 C 12/18/22 16:13 Pulse 95 H 12/18/22 16:13 Resp 18 12/18/22 16:13 BP 120/83 12/18/22 16:13 Pulse Ox 95 12/18/22 16:13 O2 Del Method 12/18/22 16:13 Results & Data ([facility]) Medications Administered Aripiprazole (Aripiprazole 5 Mg Tab) 5 mg PO QAM [facility] Stop: 01/17/23 08:59 Last Admin: 12/18/22 11:00 Dose: Not Given Documented By: ADE Insulin Aspart (Insulin Aspart Per Unit) 0 units SC ACHS [facility] Stop: 01/16/23 20:59 Last Admin: 12/18/22 18:31 Dose: Not Given Documented By: Admin: 12/18/22 14:54 Dose: Not Given Documented By: Admin: 12/18/22 10:32 Dose: Not Given Documented By: Admin: 12/17/22 22:07 Dose: Not Given Documented By: CAITY Co-signed By: EKF Insulin Glargine (Lantus Per Unit Charge) 5 units SQ BID [facility] Stop: 01/16/23 20:59 Last Admin: 12/18/22 10:32 Dose: Not Given Documented By: Admin: 12/17/22 22:13 Dose: 5 units Documented By: CAITY Co-signed By: EKF Lorazepam (Lorazepam 2 Mg/1 Ml Vial) 1 mg IV Q8H PRN PRN Reason: Anxiety/Agitation Stop: 01/16/23 19:38 Last Admin: 12/18/22 12:58 Dose: 1 mg Documented By: ADE Magnesium Oxide (Magnesium Oxide 400 Mg Tab) 400 mg PO BID [facility] Stop: 01/17/23 09:29 Last Admin: 12/18/22 11:00 Dose: Not Given Documented By: ADE Miscellaneous (Lamictal Xr~ Order Awaiting Action) 1 each N/A QS [facility] Stop: 01/17/23 00:00 Last Admin: 12/18/22 14:55 Dose: Not Given Documented By: Admin: 12/18/22 09:58 Dose: Not Given Documented By: Admin: 12/17/22 22:03 Dose: Not Given Documented By: CAITY Sertraline HCl (Sertraline Hcl 100 Mg Tablet) 100 mg PO DAILY [facility] Stop: 01/17/23 08:59 Last Admin: 12/18/22 11:00 Dose: Not Given Documented By: ADE Coding Level of Care Code 73676 Inpt Consult Level 1 Diagnoses Schizoaffective disorder F25.9 Schizoaffective disorder type: unspecified Time Spent (min) 30
[2022-12-19] MEDS: INSULIN ASPART PER UNIT SC SCH ×5 (02:26→20:52)
[2022-12-19] MEDS: MAGNESIUM OXIDE 400 MG TAB PO SCH ×3 (02:27→20:53)
[2022-12-19] MEDS: LANTUS PER UNIT CHARGE SQ SCH ×2 (02:27→09:29)
[2022-12-19] MEDS: QUEtiapine FUMARATE 25 MG TABLET PO SCH ×4 (02:28→20:53)
[2022-12-19] MEDS: LORazepam 2 MG/1 ML VIAL IV PRN (07:20)
[2022-12-19] MEDS: ARIPiprazole 5 MG TAB PO SCH (09:29)
[2022-12-19] MEDS: lamoTRIgine 25 MG TAB PO SCH ×2 (11:16→20:53)
[2022-12-19] MEDS: SERTRALINE HCL 100 MG TABLET PO SCH (11:17)
--- NOTE | 2022-12-19 12:22 | Hospitalist Progress Note ---
Date of Service December 19, 2022 Assessment & Plan (1) Homeless: Plan: Supportive care. Case management intervention (2) Hypomagnesemia: Plan: Continue replacement therapy. Serial labs (3) Heart failure: Plan: Past history of CHF apparently. No current CHF seen. Continue to monitor intake and output. He will not cooperate with cardiac echo (4) Diabetes: Plan: Mild. Lantus was started on admission and has been discontinued since glucose is 89. Hemoglobin A1c is only 6.4. We will follow (5) COPD (chronic obstructive pulmonary disease): Plan: Stable on RA . Breathing treatments as needed. (6) Intellectual disability: Plan: Supportive care. (7) Schizoaffective disorder: Plan: With behavior issues. Seroquel replaces Abilify. Behavioral health consultation and recommendations. (8) Behavior disorder: Plan: Seroquel replaces Abilify. Behavioral health consultation and recommendations Plan To be determined. It appears he will need placement . He is very uncooperative at this time Admission and Anticipated Discharge Date Admission Date: December 17, 2022 Subjective The patient is refusing medications and will not cooperate with my examination. Lantus has been discontinued due to low normal glucose levels. Hemoglobin A1c is only 6.4. He is now on Seroquel which has been uptitrated. Abilify has been discontinued. Behavioral health has signed off the case per nursing staff. Review of Systems Review of Systems: The patient would not cooperate with review of systems Physical Exam Physical Exam: The patient would not allow me to examine him Results & Data Results & Data ([facility]) Vital Signs (Past 12 Hours) Vital Signs Temp Pulse Resp BP Pulse Ox O2 Del Method 12/19/22 08:23 36.9 C 93 H 18 107/66 93 Room Air Laboratory Results 12/18/22 12:55 12/18/22 12:55 PG Care Time/CCT Total # of Minutes Spent Total Time Spent with Patient: Total time spent is greater than 50% in coordination of care (as documented) at patient's floor/unit and/or counseling patient: Coding Level of Care Code 98708 SUB INP/OBS CARE 3/50MIN Diagnoses Homeless Z59.00 Hypomagnesemia E83.42 Heart failure I50.9 Diabetes E11.9 COPD (chronic obstructive pulmonary disease) J44.9 Intellectual disability F79 Schizoaffective disorder F25.9 Schizoaffective disorder type: unspecified Behavior disorder (1) Schizoaffective disorder Schizoaffective disorder type: unspecified Qualified Code(s): F25.9 - Schizoaffective disorder, unspecified
--- NOTE | 2022-12-19 16:27 | Psychiatric Consultation ---
Date of Consultation December 19, 2022 Impression / Recommendations Impression History of schizoaffective disorder with reported recent aggressive behavior. Unfortunately, he is not responding right now so a useful assessment is not possible at the moment (1) Schizoaffective disorder: Schizoaffective disorder type: unspecified Qualified Code(s): F25.9 - Schizoaffective disorder, unspecified (2) Intellectual disability: Plan It is preferable to avoid concurrent use of 2 antipsychotics. Since benefit has been documented in terms of reduced psychomotor agitation with olanzapine but not clearly with quetiapine, I recommend discontinuation of the quetiapine and using olanzapine oral-dissolving tablets ("Zydis") 5 mg QAM & 10 mg QHS while continuing olanzapine 5 mg QID PRN psychosis or tiff. While it would be ideal to continue the sertraline, his tendency to refuse medications may make this impractical. The lamotrigine should be given as a single 50 mg dose rather than as two 25 mg doses to minimize times per day when struggles over medication could occur. If he doesn't end up accepting it consistely, discontinue it due to increased risk of toxic epidermal necrolysis with intermittent use. Psych History Identifying Data 67 y/o man with a history of schizoaffective disorder and intellectual disability who was sent to the ED from his retirement after Chief Complaint "Yeah". History of Present Illness Pt was sent to the ED from his longterm following an incident during which he became loud and threatening when approached about getting a roommate. He is reported to have threatened to shoot himself (though it beggars the imagination to believe he would have access to a firearm) or to "hurt" others if forced to have a roommate. Since admission here he has had several episodes of behavioral dyscontrol. Yesterday he threw a lunch tray and eloped to the elevator appearing to be attempting to elope. He received IM lorazepam then olanzapine, following which he was much calmer and sleepy - by the time I came to assess him he was unarousable. Earlier today he had another episode of psychomotor agitation. This, too, seemed to respond to IM olanzapine. It has been challenging to get pt to take oral medication (currently questiapine 50 mg BID). Allergies Allergy/AdvReac Type Severity Reaction Status Date / Time No Known Allergies Allergy Unverified 01/26/23 19:54 Home Medications Medication Instructions Recorded Confirmed Type Acetaminophen Pain Relief 650 mg PO Q6 PRN Fever 12/17/22 12/17/22 History Dulcolax Stool Softener (dss) See Rx Instructions .Route 12/17/22 12/17/22 History .COMPLEX constipation Glucagon Emergency Kit 1 applicator IM Q15M PRN 12/17/22 12/17/22 History hypoglycemia <60 Insta-Glucose 1 applicator PO PRN Hypoglycemia 12/17/22 History Milk of Magnesia 30 ml PO PRN Constipation 12/17/22 12/17/22 History acetaminophen 650 mg PO Q6H PRN Pain 12/17/22 12/17/22 History aripiprazole 5 mg tablet 5 mg PO QAM 12/17/22 12/17/22 History furosemide 20 mg tablet 20 mg 1XD 12/17/22 12/17/22 History lamotrigine 25 mg tablet 50 mg 1XD 12/17/22 12/17/22 History nicotine 1 patch 1XD 12/17/22 12/17/22 History pantoprazole 40 mg tablet,delayed 40 mg PO 1XD PRN Acid Reflux 12/17/22 12/17/22 History release sertraline 100 mg tablet 100 mg PO 1XD 12/17/22 12/17/22 History Patient History Medical History COPD (chronic obstructive pulmonary disease) Diabetes Heart failure Intellectual disability Schizoaffective disorder Social History (Updated 12/17/22 @ 12:35 by Flaco Guerin) Smoking Status: Smoker, status unknown Communication Ability: Effective Feels Safe at Home: Declines to Answer Assistive Devices: None Physical Exam Psychiatric: Orientation: oriented to person and + guarded; + not alert, + not oriented to place, + not oriented to time and + uncooperative Apperance: + disheveled Eye Contact: + poor eye contact Motor Behavior: no abnormal motor movements Speech: + mute Affect: + flat affect Mood: + irritable mood Thought Process: + incoherent thought process can't be assessed directly Suicidal Thoughts: denies suicidal thoughts Homicidal Thoughts: denies homicidal plan can't be assessed directly Cognition: + recent memory not intact, + remote memory not intact and + language not intact Estimated Intelligence: + below average estimated intelligence Insight: + severely impaired insight Judgement: + severely impaired judgement Vital Signs (Past 24 Hours): Last Vital Signs Temp 36.9 C 12/19/22 08:23 Pulse 93 H 12/19/22 08:23 Resp 18 12/19/22 08:23 BP 107/66 12/19/22 08:23 Pulse Ox 93 12/19/22 08:23 O2 Del Method 12/19/22 08:23 Physical Examination: A physical exam was performed by the admitting physician. I accept that physical as correct and adequate for the purposes of the inpatient physical exam. Results & Data (PSY) Medications Administered Insulin Aspart (Insulin Aspart Per Unit) 0 units SC ACHS [facility] Stop: 01/16/23 20:59 Last Admin: 12/19/22 08:46 Dose: Not Given Documented By: Admin: 12/19/22 02:26 Dose: Not Given Documented By: Admin: 12/18/22 18:31 Dose: Not Given Documented By: Admin: 12/18/22 14:54 Dose: Not Given Documented By: Admin: 12/18/22 10:32 Dose: Not Given Documented By: Admin: 12/17/22 22:07 Dose: Not Given Documented By: CAITY Co-signed By: TESHA Lamotrigine (Lamotrigine 25 Mg Tab) 25 mg PO BID [facility] Stop: 01/18/23 08:59 Last Admin: 12/19/22 11:16 Dose: 25 mg Documented By: WILLA Lorazepam (Lorazepam 2 Mg/1 Ml Vial) 1 mg IV Q8H PRN PRN Reason: Anxiety/Agitation Stop: 01/16/23 19:38 Last Admin: 12/19/22 07:20 Dose: 1 mg Documented By: Admin: 12/18/22 12:58 Dose: 1 mg Documented By: ADE Magnesium Oxide (Magnesium Oxide 400 Mg Tab) 400 mg PO BID [facility] Stop: 01/17/23 09:29 Last Admin: 12/19/22 11:16 Dose: Not Given Documented By: Admin: 12/19/22 02:27 Dose: Not Given Documented By: Admin: 12/18/22 11:00 Dose: Not Given Documented By: ADE Olanzapine (Olanzapine 10 Mg/2.1 Ml Sdv) 5 mg IM Q4H PRN PRN Reason: Agitation Stop: 01/17/23 13:14 Last Admin: 12/19/22 07:41 Dose: 5 mg Documented By: WILLA Quetiapine Fumarate (Quetiapine Fumarate 25 Mg Tablet) 50 mg PO BID [facility] Stop: 01/18/23 20:59 Last Admin: 12/19/22 11:16 Dose: 50 mg Documented By: WILLA Sertraline HCl (Sertraline Hcl 100 Mg Tablet) 100 mg PO DAILY [facility] Stop: 01/17/23 08:59 Last Admin: 12/19/22 11:17 Dose: Not Given Documented By: Admin: 12/18/22 11:00 Dose: Not Given Documented By: ADE Coding Level of Care Code INP/OBS CONSULT LVL 4, 60 MIN Diagnoses Schizoaffective disorder F25.9 Schizoaffective disorder type: unspecified Intellectual disability F79 Time Spent (min) 67
[2022-12-20] MEDS: INSULIN ASPART PER UNIT SC SCH ×4 (08:53→21:18)
[2022-12-20] MEDS: lamoTRIgine 25 MG TAB PO SCH ×2 (08:58→21:20)
[2022-12-20] MEDS: MAGNESIUM OXIDE 400 MG TAB PO SCH ×2 (08:58→21:21)
[2022-12-20] MEDS: SERTRALINE HCL 100 MG TABLET PO SCH (08:59)
[2022-12-20] MEDS: QUEtiapine FUMARATE 25 MG TABLET PO SCH (08:59)
[2022-12-20] MEDS: OLANZapine ZYDIS 5 MG ORALLY DIS. TAB PO SCH (09:50)
--- NOTE | 2022-12-20 12:20 | Psychiatric Progress Note ---
Date of Service December 20, 2022 Impression / Recommendations Impression Pt was [facility] to [facility] ED from his [facility] following an incident during which he became loud and threatening when approached about getting a roommate. He is reported to have threatened to shoot himself (though it beggars the imagination to believe he would have access to a firearm) or to "hurt" others if forced to have a roommate. Since admission here he has had several episodes of behavioral dyscontrol. Two days ago he threw a lunch tray and eloped to the elevator appearing to be attempting to elope. He received IM lorazepam then olanzapine, following which he was much calmer and sleepy - by the time I came to assess him last night he was unarousable. Today, he sits on his bed cheerfully moving items on his tray table. He offers me his TV remote and makes various gestures I can't interpret. He clearly attempts to speak, but factors including not having his dentures make his speech too unintelligible for me to interpret. He maintains an appropriate affect throughout our frustrating attempts to communicate with each other. (1) Schizoaffective disorder: (2) Intellectual disability: Plan It is always preferable to avoid concurrent use of 2 antipsychotics. Since benefit has been documented in terms of reduced psychomotor agitation with olanzapine but less clearly with quetiapine, I would ordinarily recommend discontinuation of the quetiapine and using olanzapine oral-dissolving tablets ("Zydis") 5 mg QAM & 10 mg QHS while continuing olanzapine 5 mg QID PRN psychosis or tiff. However, he is currently doing well and it's probably best not to change the present regimen. Suicide Risk Level Suicide Risk Level: Low (q15 min observation checks) Risk Factors Assessment Male: Yes : Yes Do You Have Access To A Gun?: No Health Problems: Yes Mental Health Diagnoses: Yes Interval History Identifying Information 67 y/o man dropped off in the ED with reports of aggressive behavior at his care home Chief Complaint unintelligible. Subjective Subjective Patient was seen & assessed and interval progress reviewed with [treatment team] [nursing and social work] Physical Exam Psychiatric Orientation: oriented to person and + guarded; + not alert, + not oriented to place, + not oriented to time and + uncooperative Apperance: + disheveled Eye Contact: + poor eye contact Motor Behavior: no abnormal motor movements Speech: + mute Affect: + flat affect Mood: + irritable mood Thought Process: + incoherent thought process Suicidal Thoughts: denies suicidal thoughts Homicidal Thoughts: denies homicidal plan Cognition: + recent memory not intact, + remote memory not intact and + language not intact Estimated Intelligence: + below average estimated intelligence Insight: + severely impaired insight Judgement: + severely impaired judgement Vital Signs (Past 24 Hours) Last Vital Signs Temp 36.9 C 12/20/22 08:34 Pulse 86 12/20/22 08:34 Resp 16 12/20/22 08:34 BP 125/95 12/20/22 08:34 Pulse Ox 91 12/20/22 08:34 O2 Del Method 12/20/22 08:34 A physical exam was performed by the admitting physician. I accept that physical as correct and adequate for the purposes of the inpatient physical exam. Results & Data ([facility]) Laboratory Results Laboratory Results - last 24 hr 12/19/22 12/19/22 12/19/22 08:18 17:38 20:43 POC Glucose 116 H 105 H 144 H 12/20/22 08:26 POC Glucose 92 Current Inpatient Medications Current Inpatient Medications: Current Inpatient Medications Acetaminophen (Acetaminophen 325 Mg Tab) 650 mg PO Q6H PRN PRN Reason: Pain (1,2,3) Albuterol (Albut/Ipratrop 3mg/0.5mg Neb 3 Ml Vial) 3 ml NEB QIDR PRN; Protocol PRN Reason: Shortness Of Breath Or Wheezing Stop: 01/17/23 06:59 Dextrose (Dextrose 50% 50 Ml Syringe) 25 - 50 ml IV UD PRN; Protocol PRN Reason: Hypoglycemia Protocol Stop: 01/16/23 19:30 Glucagon (Glucagon For Inj 1 Mg Vial) 1 mg SQ UD PRN; Protocol PRN Reason: Hypoglycemia Protocol Stop: 01/16/23 19:30 Glucose (Glucose 40% Gel 15 Gm Tube) 15 - 30 gm PO UD PRN; Protocol PRN Reason: Hypoglycemia Protocol Stop: 01/16/23 19:30 Glucose (Glucose 10 Tab/Tube) 4 - 8 tab PO UD PRN; Protocol PRN Reason: Hypoglycemia Treatment Stop: 01/16/23 19:30 Insulin Aspart (Insulin Aspart Per Unit) 0 units SC ACHS [facility] Stop: 01/16/23 20:59 Last Admin: 12/20/22 08:53 Dose: 4 units Lamotrigine (Lamotrigine 25 Mg Tab) 25 mg PO BID [facility] Stop: 01/18/23 08:59 Last Admin: 12/20/22 08:58 Dose: 25 mg Lorazepam (Lorazepam 2 Mg/1 Ml Vial) 1 mg IV Q8H PRN PRN Reason: Anxiety/Agitation Stop: 01/16/23 19:38 Last Admin: 12/19/22 07:20 Dose: 1 mg Magnesium Oxide (Magnesium Oxide 400 Mg Tab) 400 mg PO BID [facility] Stop: 01/17/23 09:29 Last Admin: 12/20/22 08:58 Dose: 400 mg Miscellaneous (Carbohydrates For Hypoglycemia ) 15 - 30 gm PO UD PRN PRN Reason: Hypoglycemia Protocol Stop: 01/16/23 19:30 Olanzapine (Olanzapine 10 Mg/2.1 Ml Sdv) 5 mg IM Q4H PRN PRN Reason: Agitation Stop: 01/17/23 13:14 Last Admin: 12/19/22 07:41 Dose: 5 mg Olanzapine (Olanzapine Zydis 5 Mg Orally Dis. Tab) 5 mg PO QAM [facility] Stop: 01/19/23 09:44 Last Admin: 12/20/22 09:50 Dose: 5 mg Olanzapine (Olanzapine Zydis 10 Mg Orally Dis. Tab) 10 mg PO HS [facility] Stop: 01/19/23 20:59 Pantoprazole Sodium (Pantoprazole 40 Mg Tab) 40 mg PO DAILY PRN PRN Reason: Acid Reflux Stop: 01/16/23 19:37 Sertraline HCl (Sertraline Hcl 100 Mg Tablet) 100 mg PO DAILY [facility] Stop: 01/17/23 08:59 Last Admin: 12/20/22 08:59 Dose: 100 mg (1) Schizoaffective disorder Schizoaffective disorder type: unspecified Qualified Code(s): F25.9 - Schizoaffective disorder, unspecified
--- NOTE | 2022-12-20 15:43 | Hospitalist Progress Note ---
Date of Service December 20, 2022 Assessment & Plan (1) Homeless: Plan: Supportive care. Case management intervention (2) Hypomagnesemia: Plan: Corrected with replacement therapy. Serial labs (3) Heart failure: Plan: Past history of CHF apparently. No current CHF seen. Continue to monitor intake and output. He will not cooperate with cardiac echo (4) Diabetes: Plan: Mild. Lantus was started on admission and has been discontinued. Glucose is normal. Hemoglobin A1c is only 6.4. We will follow (5) COPD (chronic obstructive pulmonary disease): Plan: Stable on RA . Breathing treatments as needed. (6) Intellectual disability: Plan: Supportive care. (7) Schizoaffective disorder: Plan: With behavior issues. Olanzapine replaces Abilify. Behavioral health consultation and recommendations. (8) Behavior disorder: Plan: Olanzapine replaces Abilify. Behavioral health consultation and recommendations Plan To be determined. It appears he will need placement . He is very uncooperative at this time Admission and Anticipated Discharge Date Admission Date: December 20, 2022 Subjective No significant change. Psychiatry entry noted. Seroquel has been discontinued and he is on olanzapine orally with as needed IM use Review of Systems Review of Systems: The patient would not cooperate with review of systems Physical Exam Physical Exam: The patient would not allow me to examine him Results & Data Results & Data ([facility]) Vital Signs (Past 12 Hours) Vital Signs Temp Pulse Resp BP Pulse Ox O2 Del Method 12/20/22 08:34 36.9 C 86 16 125/95 91 Room Air PG Care Time/CCT Total # of Minutes Spent Total Time Spent with Patient: Total time spent is greater than 50% in coordination of care (as documented) at patient's floor/unit and/or counseling patient: Coding Level of Care Code 97186 SUB INP/OBS CARE 3/50MIN Diagnoses Homeless Z59.00 Hypomagnesemia E83.42 Heart failure I50.9 Diabetes E11.9 COPD (chronic obstructive pulmonary disease) J44.9 Intellectual disability F79 Schizoaffective disorder F25.9 Schizoaffective disorder type: unspecified Behavior disorder (1) Schizoaffective disorder Schizoaffective disorder type: unspecified Qualified Code(s): F25.9 - Schizoaffective disorder, unspecified
[2022-12-21] MEDS: LORazepam 2 MG/1 ML VIAL IV PRN (03:02)
--- NOTE | 2022-12-21 08:03 | Electrocardiogram Report ---
Test Reason : Blood Pressure : / mmHG Vent. Rate : 093 BPM Atrial Rate : 093 BPM P-R Int : 172 ms QRS Dur : 102 ms QT Int : 364 ms P-R-T Axes : 039 043 024 degrees QTc Int : 452 ms Poor data quality, interpretation may be adversely affected Sinus rhythm with Premature atrial complexes T wave abnormality, consider lateral ischemia Abnormal ECG No previous ECGs available Confirmed by Arnold Grant ([id number]) on 12/18/2022 3:14:57 PM Referred By: REFERRED SELF Confirmed By:Christiano Grant
[2022-12-21] MEDS: lamoTRIgine 25 MG TAB PO SCH ×2 (09:29→22:57)
[2022-12-21] MEDS: MAGNESIUM OXIDE 400 MG TAB PO SCH ×2 (09:29→22:57)
[2022-12-21] MEDS: OLANZapine ZYDIS 5 MG ORALLY DIS. TAB PO SCH (09:30)
[2022-12-21] MEDS: SERTRALINE HCL 100 MG TABLET PO SCH (09:30)
[2022-12-21] MEDS: INSULIN ASPART PER UNIT SC SCH ×4 (09:30→22:56)
--- NOTE | 2022-12-21 15:22 | Hospitalist Progress Note ---
Date of Service December 21, 2022 Assessment & Plan (1) Homeless: Plan: Supportive care. Case management intervention (2) Hypomagnesemia: Plan: Corrected with replacement therapy. Serial labs (3) Heart failure: Plan: Past history of CHF apparently. No current CHF seen. Continue to monitor intake and output. He will not cooperate with cardiac echo (4) Diabetes: Plan: Mild. Lantus was started on admission and has been discontinued. Glucose is normal. Hemoglobin A1c is only 6.4. We will follow (5) COPD (chronic obstructive pulmonary disease): Plan: Stable on RA . Breathing treatments as needed. (6) Intellectual disability: Plan: Supportive care. (7) Schizoaffective disorder: Plan: With behavior issues. Olanzapine replaces Abilify. Behavioral health consultation and recommendations. (8) Behavior disorder: Plan: Olanzapine replaces Abilify. Behavioral health consultation and recommendations Plan To be determined. It appears he will need placement . He is very uncooperative at this time. Case management involved Admission and Anticipated Discharge Date Admission Date: December 20, 2022 Subjective No significant change. Current olanzapine dosing appears to be adequate. Case management entry noted. Placement is going to be an issue with him. Diabetes appears to be controlled Review of Systems Review of Systems: The patient would not cooperate with review of systems Physical Exam Physical Exam: The patient would not allow me to examine him Results & Data Results & Data ([facility]) Vital Signs (Past 12 Hours) Vital Signs Temp Pulse Resp BP Pulse Ox O2 Del Method 12/21/22 09:53 36.7 C 105 H 19 105/75 92 Room Air Laboratory Results 12/18/22 12:55 12/18/22 12:55 PG Care Time/CCT Total # of Minutes Spent Total Time Spent with Patient: Total time spent is greater than 50% in coordination of care (as documented) at patient's floor/unit and/or counseling patient: Coding Level of Care Code 38197 SUB INP/OBS CARE 2/35MIN Diagnoses Homeless Z59.00 Hypomagnesemia E83.42 Heart failure I50.9 Diabetes E11.9 COPD (chronic obstructive pulmonary disease) J44.9 Intellectual disability F79 Schizoaffective disorder F25.9 Schizoaffective disorder type: unspecified Behavior disorder (1) Schizoaffective disorder Schizoaffective disorder type: unspecified Qualified Code(s): F25.9 - Schizoaffective disorder, unspecified
[2022-12-22] MEDS: MAGNESIUM OXIDE 400 MG TAB PO SCH ×2 (10:09→19:38)
[2022-12-22] MEDS: lamoTRIgine 25 MG TAB PO SCH ×2 (10:09→19:40)
[2022-12-22] MEDS: SERTRALINE HCL 100 MG TABLET PO SCH (10:10)
[2022-12-22] MEDS: OLANZapine ZYDIS 5 MG ORALLY DIS. TAB PO SCH (10:10)
[2022-12-22] MEDS: INSULIN ASPART PER UNIT SC SCH ×4 (10:20→22:07)
--- NOTE | 2022-12-22 19:46 | Hospitalist Progress Note ---
Date of Service December 22, 2022 Assessment & Plan (1) Homeless: Plan: Case management working on housing options for him post-d/c. (2) Hypomagnesemia: Plan: replaced/resolved (3) Heart failure: Plan: Past history of CHF per the record. Type is uncertain. I explained to him the need for echo due to his complaints of dyspnea as well as his loud heart murmur. He is agreeable to echo. Check cxr - r/o pulm edema. (4) Diabetes: Plan: Hemoglobin A1c is only 6.4%. Very mild T2DM. Metformin once daily should suffice. (5) COPD (chronic obstructive pulmonary disease): Plan: wheezing on exam. uncertain if "cardiac" wheezing vs primary pulmonary from COPD. check cxr. (6) Intellectual disability: Plan: baseline (7) Schizoaffective disorder: Plan: Cont olanzapine BID. appreciate psych recs (8) Behavior disorder: Plan: Cont olanzapine BID (9) Impacted cerumen of both ears: Plan: debrox solution - 5cc BID to both canals x 3 days (10) Dyspnea: Plan: 2nd CHF? 2nd COPD? start with cxr echo Admission and Anticipated Discharge Date Admission Date: December 20, 2022 Subjective pt c/o bilateral ear canal discomfort and poor hearing also c/o shortness of breath at rest and with walking points to his ankles - they are swollen some he is eating well social work trying to secure housing for him post discharge Review of Systems Review of Systems: cv - ?orthopnea pulm - cough/dyspnea GI - no pain Physical Exam Physical Exam: gen - morbidly obese, dysmorphic in appearance, very difficult to understand his speech neck - due to very large neck size unable to assess for JVD mouth - MMM ears - b/l cerumen impaction; no otitis externa or inflammation either canal heart - RRR, s1 s2 lungs - decreased BS bases, end-exp wheezes scattered, ?rales bases abd - soft NT ND BS+ ext - <1+ edema b/l, pulses 2+ b/l neuro - ?dysarthric speech - is this baseline for him?; strength 5/5 x 4 exts Results & Data Results & Data ([facility]) Vital Signs (Past 12 Hours) Vital Signs Temp Pulse Resp BP Pulse Ox O2 Del Method 12/22/22 14:57 36.9 C 96 H 18 101/68 96 Room Air 12/22/22 10:35 Room Air 12/22/22 10:05 36.5 C 103 H 20 106/72 93 Room Air Laboratory Results Laboratory Results - last 48 hr 12/21/22 12/21/22 12/21/22 12:18 16:23 22:53 POC Glucose 138 H 128 H 88 12/22/22 12/22/22 12/22/22 09:08 12:51 17:16 POC Glucose 99 165 H 97 12/22/22 20:41 POC Glucose 139 H PG Care Time/CCT Total # of Minutes Spent Total Time Spent with Patient: Total time spent is greater than 50% in coordination of care (as documented) at patient's floor/unit and/or counseling patient: Coding Level of Care Code 85236 SUB INP/OBS CARE 2MIN Diagnoses Homeless Z59.00 Hypomagnesemia E83.42 Heart failure I50.9 Diabetes E11.9 COPD (chronic obstructive pulmonary disease) J44.9 Intellectual disability F79 Schizoaffective disorder F25.9 Schizoaffective disorder type: unspecified Behavior disorder Impacted cerumen of both ears H61.23 Dyspnea R06.00 (1) Schizoaffective disorder Schizoaffective disorder type: unspecified Qualified Code(s): F25.9 - Schizoaffective disorder, unspecified
[2022-12-22] MEDS: CARBAMIDE PEROXIDE 6.5% 15 ML BTL OTB SCH (21:02)
[2022-12-23] MEDS: lamoTRIgine 25 MG TAB PO SCH ×2 (08:46→19:51)
[2022-12-23] MEDS: CARBAMIDE PEROXIDE 6.5% 15 ML BTL OTB SCH ×2 (08:46→19:51)
[2022-12-23] MEDS: SERTRALINE HCL 100 MG TABLET PO SCH (08:46)
[2022-12-23] MEDS: MAGNESIUM OXIDE 400 MG TAB PO SCH ×2 (08:46→19:50)
[2022-12-23] MEDS: OLANZapine ZYDIS 5 MG ORALLY DIS. TAB PO SCH (08:46)
[2022-12-23] MEDS: INSULIN ASPART PER UNIT SC SCH ×4 (08:50→20:36)
--- NOTE | 2022-12-23 09:19 | XRay Report ---
XR chest 2V PA/lateral HISTORY: 67 years-old Male dyspnea, b/l basilar rales acute shortness of breath COMPARISON: PA and lateral views of the chest TECHNIQUE: AP and lateral views of the chest. FINDINGS: Cardiac silhouette is enlarged. Pulmonary vascular congestion. No pneumothorax. Trace pleural effusio ns. Mild bibasilar atelectasis. No lobar airspace consolidation. Healed chronic fracture of the poste rolateral left fifth rib.. IMPRESSION: 1. Cardiomegaly with pulmonary vascular congestion. 2. Trace pleural effusions. ACT 112: Negative or not required by law. The above report was generated using voice recognition software. It may contain grammatical, syntax o r spelling errors. Electronically signed by: Kenny Valenzuela M.D. 12/23/2022 9:18 AM
[2022-12-23] MEDS ORDERED: FUROSEMIDE INJ 20 MG/2 ML VIAL IV ONE (09:30)
--- NOTE | 2022-12-23 10:39 | XCELERA ---
[id number]
[2022-12-23] MEDS ORDERED: FUROSEMIDE 40 MG/4 ML VIAL IV ONE (12:18)
[2022-12-23] MEDS: MUPIROCIN 2% OINT 22 GM TUBE EXT SCH (19:51)
--- NOTE | 2022-12-23 21:01 | Hospitalist Progress Note ---
Date of Service December 23, 2022 Assessment & Plan (1) Homeless: Plan: Case management working on housing options for him post-d/c. Apparently he has a hotel in [place] that will provide fpc for him?? Is he fit to be living alone? Does he have medical decision making capacity? (2) Hypomagnesemia: Plan: replaced/resolved cont replacement (3) Heart failure: Plan: CXR with mild pulm vascular congestion today -- lasix 20mg IV x 1 HFpEF based on echo today. Thus, this is mild acute/chronic HFpEF. (4) Diabetes: Plan: Hemoglobin A1c is only 6.4%. Very mild T2DM. Metformin once daily should suffice. (5) COPD (chronic obstructive pulmonary disease): Plan: wheezing on exam. uncertain if "cardiac" wheezing vs primary pulmonary from COPD. cxr with mild pulm edema. diurese. add inhalers. (6) Intellectual disability: Plan: does he have capacity to making his own decisions? I may involve psychiatry for formal assessment. (7) Schizoaffective disorder: Plan: Cont olanzapine BID. appreciate psych recs (8) Behavior disorder: Plan: Cont olanzapine BID (9) Impacted cerumen of both ears: Plan: debrox solution - 5cc BID to both canals x 3 days (10) Dyspnea: Plan: 2nd CHF? 2nd COPD? cxr and echo reviewed diurese 20mg lasix today re-eval tomorrow (11) Hypertrophic toenail: Plan: x 10 he self-removed the right 4th toenail today the great toes have severely hypertrophied nails and they likely should be removed will ask for podiatry consult Plan DVT proph - doubt he will take SC injections consider xarelto 10mg once daily dispo planning Admission and Anticipated Discharge Date Admission Date: December 20, 2022 Subjective no issues except patient removed his toenail from his right 4th toe scant bleeding during my visit he states breathing is ok today eating well he was sleepy during the visit no other issues per staff Review of Systems Review of Systems: cv - no chest pain pulm - mild cough GI - no abd pain Physical Exam Physical Exam: gen - morbidly obese, dysmorphic in appearance, very difficult to understand his speech neck - due to very large neck size unable to assess for JVD mouth - MMM; poor dentition heart - RRR, s1 s2, 2/6 systolic murmur LSB lungs - decreased BS bases, otherwise clear b/l abd - soft NT ND BS+ ext - trace edema b/l, pulses 2+ b/l neuro - ?dysarthric speech - is this baseline for him? skin/nails - dystrophic toenails both feet; right 4th toenail has been removed Results & Data Results & Data ([facility]) Vital Signs (Past 12 Hours) Vital Signs Temp Pulse Pulse Resp BP Pulse Ox O2 Del Method 12/23/22 20:29 36.8 C 83 20 115/77 95 Room Air 12/23/22 15:07 36.6 C 99 H 16 108/71 93 Room Air Laboratory Results Laboratory Results - last 24 hr 12/23/22 12/23/22 12/23/22 07:55 11:49 17:04 POC Glucose 91 92 107 H 12/23/22 20:27 POC Glucose 93 Diagnostic Findings echo - preserved EF, normal RV function PG Care Time/CCT Total # of Minutes Spent Total Time Spent with Patient: Total time spent is greater than 50% in coordination of care (as documented) at patient's floor/unit and/or counseling patient: Coding Level of Care Code 15374 SUB INP/OBS CARE 2/35MIN Diagnoses Homeless Z59.00 Hypomagnesemia E83.42 Heart failure I50.9 Diabetes E11.9 COPD (chronic obstructive pulmonary disease) J44.9 Intellectual disability F79 Schizoaffective disorder F25.9 Schizoaffective disorder type: unspecified Behavior disorder Impacted cerumen of both ears H61.23 Dyspnea R06.00 Hypertrophic toenail L60.2 (1) Schizoaffective disorder Schizoaffective disorder type: unspecified Qualified Code(s): F25.9 - Schizoaffective disorder, unspecified
[2022-12-24 08:04] LABS: Hematocrit (blood only) 33.6 % (42.0-52.0); Hemoglobin 10.8 g/dl (14.0-18.0); Mean Corpuscular Hemoglobin 27.1 pg (25.0-34.0); Mean Corpuscular Hgb Conc 32.1 g/dL (32.0-36.0); Mean Corpuscular Volume 84.4 fL (80.0-100.0); Mean Platelet Volume 12.1 fL (9.4-12.4); Platelet Count 177 K/uL (130-400); RDW Standard Deviation 45.9 fL (36.4-46.3); Red Blood Count 3.98 M/uL (4.70-6.10)
[2022-12-24 08:10] LABS: Base Excess VBG 6.8 mEq/L; HCO3 VBG 32 mmol/L; Oxygen Saturation VBG 64.2 %; PCO2 VBG 47 mmHg (38-50); PO2 VBG 39 mmHg; pH VBG 7.44 (7.36-7.41)
[2022-12-24 08:25] LABS: Calcium 9.7 mg/dl (8.5-10.1); Potassium 3.5 mmol/L (3.5-5.1)
[2022-12-24 08:31] LABS: BUN Creatinine Ratio 19.8 (10-20); Creatinine Clr Calc Pharmacy 84.1 ml/min; Est GFR (African American) 95.8 ml/min; Est GFR (Non-African American) 82.6 ml/min
[2022-12-24] MEDS: lamoTRIgine 25 MG TAB PO SCH ×2 (08:32→19:22)
[2022-12-24] MEDS: OLANZapine ZYDIS 5 MG ORALLY DIS. TAB PO SCH (08:33)
[2022-12-24] MEDS: SERTRALINE HCL 100 MG TABLET PO SCH (08:33)
[2022-12-24] MEDS: CARBAMIDE PEROXIDE 6.5% 15 ML BTL OTB SCH ×2 (08:33→19:20)
[2022-12-24] MEDS: MUPIROCIN 2% OINT 22 GM TUBE EXT SCH ×2 (08:33→19:23)
[2022-12-24] MEDS: MAGNESIUM OXIDE 400 MG TAB PO SCH ×2 (08:33→19:21)
[2022-12-24] MEDS: INSULIN ASPART PER UNIT SC SCH ×4 (08:37→20:46)
[2022-12-24 08:45] LABS: Ferritin 29.3 ng/ml (8-388)
[2022-12-24 08:52] LABS: Vitamin B12 157 pg/ml (180-914)
[2022-12-24] MEDS ORDERED: FUROSEMIDE INJ 20 MG/2 ML VIAL IV ONE (10:27)
[2022-12-24] MEDS ORDERED: POTASSIUM CHLORIDE CRTAB 20 MEQ TABCR PO STA (10:27)
[2022-12-24] MEDS ORDERED: IRON SUCROSE 200 MG in 0.9 % SODIUM CHLORIDE 100 ML IV ONE (10:30)
[2022-12-24] MEDS: CYANOCOBALAMIN (B-12) 500 MCG TABLET PO SCH (11:09)
[2022-12-24] MEDS ORDERED: OLANZapine 10 MG TAB PO STA (20:27)
--- NOTE | 2022-12-24 22:22 | Hospitalist Progress Note ---
Date of Service December 24, 2022 Assessment & Plan (1) Schizoaffective disorder: Plan: I discussed his case with Dr Abdullahi. I mentioned his conversations he has by himself, talking to his sister, etc. He sleeps poorly at night. Staff reports he has these conversations throughout much of the day. Increase zyprexa to 20mg HS. Leave am dose as is. Dr Abdullahi to see tomorrow at bedside (2) Intellectual disability: Plan: does he have capacity to making his own decisions? I asked psych to perform formal capacity assessment he previously was living alone and I don't think that is possible nor prudent I doubt he can make informed decisions on his own behalf appreciate psych assistance (3) Homeless: Plan: Case management working on housing options for him post-d/c. Apparently he has a hotel in [place] that will provide nursing home for him?? Is he fit to be living alone? Does he have medical decision making capacity? see above (4) Hypomagnesemia: Plan: replaced/resolved (5) Heart failure: Plan: CXR with mild pulm vascular congestion -- lasix 20mg IV x 1 again today BMP in am mild acute/chronic HFpEF. echo findings from this admission reviewed (6) Diabetes: Plan: Hemoglobin A1c is only 6.4%. Very mild T2DM. Novolog SSI for now, but will start Metformin soon; this should suffice to control his BSGs (7) COPD (chronic obstructive pulmonary disease): Plan: by report (8) Behavior disorder: Plan: Cont olanzapine BID - see #1 above (9) Impacted cerumen of both ears: Plan: debrox solution - 5cc BID to both canals x 3 days (10) Dyspnea: Plan: likely due to CHF can't rule out COPD contributing (11) Hypertrophic toenail: Plan: x 10 he self-removed the right 4th toenail the great toes have severely hypertrophied nails and they likely should be rem lisa will ask for podiatry consult - consulted Dr Felix Ashford for such (12) B12 deficiency: Plan: start B12 1000mcg daily (13) Iron deficiency: Plan: venofer 200mg x 1 today then 300mg tomorrow will obtain fecal occult blood Plan DVT proph - doubt he will take SC injections consider xarelto 10mg once daily as long as H/H remain stable complex care coordination continues care d/w psych, podiatry, and the hospitalist nurse navigator Admission and Anticipated Discharge Date Admission Date: December 20, 2022 Subjective before I entered Mr Montemayor's room he was responding to internal stimuli he was shouting "I didn't do it. I didn't do it." he was having full conversations by himself when I entered the room he asked if he could "get something for sleep" I asked him who he was talking with - stated it was his sister "she tells me to behave." no physical complaints Review of Systems Review of Systems: gen - eating well cv - no chest pain; edema resolved pulm - dyspnea improved GI - no pain Physical Exam Physical Exam: gen - morbidly obese, dysmorphic in appearance, very difficult to understand his speech; responding to internal stimuli mouth - MMM; poor dentition heart - RRR, s1 s2, 2/6 systolic murmur LSB lungs - decreased BS bases, otherwise clear b/l today; no wheezes abd - soft NT ND BS+ ext - no edema b/l, pulses 2+ b/l neuro - speech is simliar to prior exams Results & Data Results & [facility] ([facility]) Vital Signs (Past 12 Hours) Vital Signs Temp Pulse Resp BP Pulse Ox O2 Del Method 12/24/22 20:51 36.9 C 98 H 20 110/75 94 Room Air 12/24/22 15:51 37.1 C 88 16 109/72 94 Room Air 12/24/22 15:43 37.3 C 108 H 16 88/58 L 90 Room Air Laboratory Results Laboratory Results - last 24 hr 12/24/22 12/24/22 12/24/22 07:50 07:50 07:50 WBC 7.20 RBC 3.98 L Hgb 10.8 L Hct 33.6 L MCV 84.4 MCH 27.1 MCHC 32.1 RDW Std Deviation 45.9 RDW Coeff of Rachelle 15.0 H Plt Count 177 MPV 12.1 VBG pH VBG pCO2 VBG pO2 VBG HCO3 VBG O2 Saturation VBG Base Excess Sodium 140 Potassium 3.5 Chloride 103 Carbon Dioxide 31 Anion Gap 6 BUN 19 Creatinine 0.96 Est Cr Clr Drug Dosing 84.1 Est GFR ( Amer) 95.8 Est GFR (Non-Af Amer) 82.6 BUN/Creatinine Ratio 19.8 Glucose 96 POC Glucose Calcium 9.7 Iron 56 TIBC 384 Unsaturated IBC 328 Transferrin % Sat 15 L Ferritin 29.3 Vitamin B12 157 L Folate > 22.30 12/24/22 12/24/22 12/24/22 07:50 07:55 12:04 WBC RBC Hgb Hct MCV MCH MCHC RDW Std Deviation RDW Coeff of Rachelle Plt Count MPV VBG pH 7.44 H VBG pCO2 47 VBG pO2 39 VBG HCO3 32 VBG O2 Saturation 64.2 VBG Base Excess 6.8 Sodium Potassium Chloride Carbon Dioxide Anion Gap BUN Creatinine Est Cr Clr Drug Dosing Est GFR ( Amer) Est GFR (Non-Af Amer) BUN/Creatinine Ratio Glucose POC Glucose 96 97 Calcium Iron TIBC Unsaturated IBC Transferrin % Sat Ferritin Vitamin B12 Folate 12/24/22 12/24/22 16:57 20:42 WBC RBC Hgb Hct MCV MCH MCHC RDW Std Deviation RDW Coeff of Rachelle Plt Count MPV VBG pH VBG pCO2 VBG pO2 VBG HCO3 VBG O2 Saturation VBG Base Excess Sodium Potassium Chloride Carbon Dioxide Anion Gap BUN Creatinine Est Cr Clr Drug Dosing Est GFR ( Amer) Est GFR (Non-Af Amer) BUN/Creatinine Ratio Glucose POC Glucose 113 H 113 H Calcium Iron TIBC Unsaturated IBC Transferrin % Sat Ferritin Vitamin B12 Folate PG Care Time/CCT Total # of Minutes Spent Total Time Spent with Patient: Total time spent is greater than 50% in coordination of care (as documented) at patient's floor/unit and/or counseling patient: Coding Level of Care Code 36951 SUB INP/OBS CARE 3/50MIN Diagnoses Schizoaffective disorder F25.9 Schizoaffective disorder type: unspecified Intellectual disability F79 Homeless Z59.00 Hypomagnesemia E83.42 Heart failure I50.9 Diabetes E11.9 COPD (chronic obstructive pulmonary disease) J44.9 Behavior disorder Impacted cerumen of both ears H61.23 Dyspnea R06.00 Hypertrophic toenail L60.2 B12 deficiency E53.8 Iron deficiency E61.1 (1) Schizoaffective disorder Schizoaffective disorder type: unspecified Qualified Code(s): F25.9 - Schizo affective disorder, unspecified
[2022-12-25] MEDS: SERTRALINE HCL 100 MG TABLET PO SCH (08:11)
[2022-12-25] MEDS: OLANZapine ZYDIS 5 MG ORALLY DIS. TAB PO SCH (08:11)
[2022-12-25] MEDS: CYANOCOBALAMIN (B-12) 500 MCG TABLET PO SCH (08:11)
[2022-12-25] MEDS: MUPIROCIN 2% OINT 22 GM TUBE EXT SCH ×2 (08:11→19:59)
[2022-12-25] MEDS: lamoTRIgine 25 MG TAB PO SCH (08:11)
[2022-12-25] MEDS: CARBAMIDE PEROXIDE 6.5% 15 ML BTL OTB SCH (08:11)
[2022-12-25] MEDS: MAGNESIUM OXIDE 400 MG TAB PO SCH ×2 (08:11→19:59)
[2022-12-25] MEDS: INSULIN ASPART PER UNIT SC SCH ×4 (08:21→21:02)
[2022-12-25] MEDS ORDERED: IRON SUCROSE 300 MG in SODIUM CHLORIDE 0.9% 250 ML IV ONE (10:21)
[2022-12-25 11:38] LABS: BUN Creatinine Ratio 20.2 (10-20); Creatinine Clr Calc Pharmacy 67.9 ml/min; Est GFR (African American) 73.9 ml/min; Est GFR (Non-African American) 63.7 ml/min; Potassium 3.9 mmol/L (3.5-5.1)
--- NOTE | 2022-12-25 12:44 | Psychiatric Progress Note ---
Date of Service December 25, 2022 Impression / Recommendations Impression Mustapha is a 67 yo man from [facility], has a history of homelessness but mostly recently resided at a snf facility (unclear why), has a history of seizures, CHF, T2DM, COPD, intellectual disability with significant dysarthria, schizoaffective disorder previously on abilify, sertraline, and lamictal (unclear if for hx of seizures vs mood stabilization) and has a variety of services in [facility] including involvement of Office of Aging, a [id number] who may be able to provide increased support in the outpatient setting, a rep payee Jesusita, and a welfare case worker Isra through [facility]. Apparently his outpatient team in [facility] has deemed him capable of making his own independent decisions about where he lives (on the street versus in hotel paid for by his rep payee). There remain many unknowns about his presentation as historical information is limited including any prior testing regarding the degree of his intellectual disability/cognitive functioning, any history of prior CVAs/prior MRI imaging as dysarthria is very prominent and he demonstrates significant right eye droop, what his functional baseline looks like (how does he get food, does he get any additional support meeting his basic needs/ADLs, are there opportunities for additional outpatient support resources regarding this?), and what his psychiatric baseline looks like as no current evidence for acute psychosis and unclear if his conversations with family members and poor sleep are related to schizoaffective/possible hypomania versus due to underlying significant intellectual disability. At this time there are no signs of acute risk of harm to self or others and these are both low. In terms of decision making capacity it is foremost critical to emphasis that this assessment is task specific, dimensional and DOES NOT REPRESENT NOR CAN IT BE USED A MEANS OF ASSESSING GLOBAL LEGAL COMPETENCY OR NEED FOR GUARDIANSHIP. A LEGAL COMPETENCY ASSESSMENT IS SEPARATE, DISTINCT AND REQUIRES EXTENSIVE EVALUATION TYPICALLY TO INCLUDE FORMAL COGNITIVE ASSESSMENTS INCLUDING NEUROPSYCHOLOGICAL and IQ TESTING, DISCUSSION WITH LONGITUDINAL ASSOCIATES AND PROVIDERS WHO HAVE KNOWN A PATIENT OVER A PERIOD OF MONTHS OR YEARS, COMPREHENSIVE INTERVIEWS AND GENERALLY INVOLVEMENT OF SPECIALIZED FORENSIC PSYCHOLOGISTS OR PSYCHIATRISTS. In this case I do not find that Mustapha currently has decision making capacity regarding where he will live on disposition. This is based on his inability to state why he is the hospital, inability to state a clear choice, inability to describe the options available for where to live (i.e. hotel secured by rep payee), inability to appreciate consequences of his choices (i.e. cannot describe how he would meet his basic nutritional needs depending on where he goes) nor able to manipulate relevant information that case management has been discussing with him. The patient's decision making capacity could change in the future given that their mental status and various other factors can certainly fluctuate over time. Given that multiple outside supports have apparently been involved in his care over time I would strongly encourage that his outpatient welfare case worker, brother in law, and rep payee be involved in discussions about these options and that best substituted judgment be used to determine what will be a safe and appropriate disposition living option as they are better able to speak to his longitudinal course, baseline status and seemingly will better understand how he meets his basic needs of groceries etc. Given ongoing poor sleep, periods of restlessness, and history of behavioral dysregulation will start depakote DR 250mg BID for insomnia, impulse control, seizure prevention and to help with mood stabilization given less metabolic risks compared to antipsychotics with hx CHF, T2DM. Will reduce olanzapine back to 5mg QAM and 10mg HS as higher dose may have caused dizziness and did not offer improved sleep. (1) Schizoaffective disorder: (2) Intellectual disability: Plan -Encourage CM to continue to involve his multiple outpatient supports to determine most appropriate and safe disposition plan using best substituted judgment -Encourage effort to gather external medical and psychiatric records including any past head imaging/cognitive workups/functional baseline -Start Depakote DR 250mg BID. He was unable to participation in discussion of medication risks/benefits but generally agrees to taking medication. Reviewed baseline labs of CBC with diff, LFTs, electrolytes which are stable for initiation of Depakote. -Continue olanzapine 5mg qAM and 10mg HS -Does not need safe tray, can have normal utensils and meal items -Will attempt to determine if he has any outpatient psychiatric providers in [facility] and if not will attempt to set this up if he consents to this Suicide Risk Level Suicide Risk Level: Low (q15 min observation checks) Risk Factors Assessment Male: Yes : Yes Do You Have Access To A Gun?: No Health Problems: Yes Mental Health Diagnoses: Yes Interval History Identifying Information 67 year old man from [facility] with a history of schizoaffective disorder, intellectual disability, seizure disorder, CHF, COPD, T2 DM, admitted medically after being brought to the ED for aggressive behavior at [facility] intermediate facility. Psychiatry was re-consulted for recommendations regarding medication management and decision making capacity about where to live. Chief Complaint "I'm not good, I'm having a hard time walking". Subjective Subjective Patient was seen & assessed and interval progress reviewed. Based on chart review Mustapha has a long history of significant intellectual disability and schizoaffective disorder on abilify, sertraline, and lamictal (unclear if for hx of seizures vs mood stabilization) as been homeless at times and has a variety of services in [facility] including involvement of Office of Aging, a [id number] who may be able to provide increased support in the outpatient setting, a rep payee Jesusita, and a welfare case worker Isra through [employer]. Case management spoke with Mustapha's welfare case worker who reportedly said that Mustapha typically makes his own decisions (seemingly independent from finances) and has the freedom to chose where he stays (i.e. being outside/home less versus staying in local hotel in [place] that his rep payee pays for). Unclear why he was admitted to [facility] or what his physical and cognitive status is at baseline. Head CT done on admission notable for some "white matter hypodensity suggestive of small vessel disease" and "numerous small several lucencies". He apparently became agitated at [facility] and threatened to hurt himself or others when his room was moved and he was given a roommate. Since admission he has denied SI and HI but early in his stay did throw his lunch tray on one occasion and tried to elope to the elevator requiring IM ativan and olanzapine. Initially he was also relectuant to take po medication but has been cosistently adherent over the last few days with no further behavioral episodes. He has not been sleeping, only brief nap ~45 minutes within the last 2 days, and moves about his room in a somewhat restless manner per documentation. He at times is observed responding to internal stimuli by talking when he is alone in his room and makes statements of seeing ghosts, and believes his family members are alive and can communicate with him and give him advice like "to behave". Olanzapine ODT was started early in admission with seeming improvement in behavioral dysregulation and no notable side effects. Today on my assessment Mustapha reports "not good" mood due to difficulty walking and some dizziness. He was given a higher dose of olanzapine last night at my recommendation to help with sleep but states he still did not sleep. He isn't sure why but reports watching TV. Interview is significantly challenged by his very dysarthric speech and short attention span. He sits during most of our conversation though at times gets distracted when he seems to look for an item in his pants pocket and later checks the zuniga to see if someone is coming to put new sheets on his bed. He is oriented to being in the hospital, and knows the month but doesn't know the city, can't tell me where he was living before and thinks the year is 2021. Can't tell me how far he went in school. Has been eating well. Per RN does repeptitive behavior of taking his sheets off the bed every morning and ties them up in biohazard bag and places it in the zuniga outside his room. Tells me "I'm a survivor" and that outside the hospital he finds food "on the ground". Repeats this as his response to where he sleeps "on the ground". Can't tell me why he's in the hospital "I don't know" and tells me when he leaves he will go "no where". During admission has been eating, following nursing care directions, watching TV and communicating with providers. Becomes more tired limited further discussion. Of note his right eye is closed throughout our discussion, unclear if any history of stroke-he responds yes when asked but his comprehension is questionable. Later tells me he keeps it closed due to a cataract in that eye. Physical Exam Psychiatric Orientation: alert, oriented to person and oriented to place; + not oriented to time Apperance: appropriately dressed and + disheveled Eye Contact: + fair eye contact Motor Behavior: no abnormal motor movements Speech: + abnormal rate/rhythm/volume of speech (dysarthria) Affect: + constricted affect Mood: no depressed mood and no anxious mood Thought Process: + concrete thought process Thought Content: reality based without delusions Suicidal Thoughts: denies suicidal thoughts Homicidal Thoughts: denies homicidal thoughts Hallucinations: + auditory hallucinations (hears voices of family at times); no visual hallucinations Cognition: + recent memory not intact, + remote memory not intact, + attention not intact and + language not intact Insight: + severely impaired insight Judgment: + limited judgement Vital Signs (Past 24 Hours) Last Vital Signs Temp 36.8 C 12/25/22 10:17 Pulse 89 12/25/22 10:17 Resp 16 12/25/22 10:17 BP 110/72 12/25/22 10:17 Pulse Ox 95 12/25/22 10:17 O2 Del Method 12/25/22 10:17 Results & Data ([facility]) Laboratory Results Laboratory Results - last 24 hr 12/24/22 12/24/22 12/25/22 16:57 20:42 08:09 Sodium Potassium Chloride Carbon Dioxide Anion Gap BUN Creatinine Est Cr Clr Drug Dosing Est GFR ( Amer) Est GFR (Non-Af Amer) BUN/Creatinine Ratio Glucose POC Glucose 113 H 113 H 113 H Calcium 12/25/22 12/25/22 09:29 12:16 Sodium 141 Potassium 3.9 Chloride 100 Carbon Dioxide 29 Anion Gap 12 H BUN 24 H Creatinine 1.19 Est Cr Clr Drug Dosing 67.9 Est GFR ( Amer) 73.9 Est GFR (Non-Af Amer) 63.7 BUN/Creatinine Ratio 20.2 H Glucose 136 H POC Glucose 116 H Calcium 10.0 Current Inpatient Medications Current Inpatient Medications: Current Inpatient Medications Acetaminophen (Acetaminophen 325 Mg Tab) 650 mg PO Q6H PRN PRN Reason: Pain (1,2,3) Albuterol (Albut/Ipratrop 3mg/0.5mg Neb 3 Ml Vial) 3 ml NEB QIDR PRN; Protocol PRN Reason: Shortness Of Breath Or Wheezing Stop: 01/17/23 06:59 Carbamide Peroxide (Carbamide Peroxide 6.5% 15 Ml Btl) 5 drops OTB BID STEVE Stop: 12/25/22 20:59 Last Admin: 12/25/22 08:11 Dose: 5 drops Cyanocobalamin (Cyanocobalamin (B-12) 500 Mcg Tablet) 1,000 mcg PO QAM STEVE Stop: 01/23/23 10:14 Last Admin: 12/25/22 08:11 Dose: 1,000 mcg Dextrose (Dextrose 50% 50 Ml Syringe) 25 - 50 ml IV UD PRN; Protocol PRN Reason: Hypoglycemia Protocol Stop: 01/16/23 19:30 Glucagon (Glucagon For Inj 1 Mg Vial) 1 mg SQ UD PRN; Protocol PRN Reason: Hypoglycemia Protocol Stop: 01/16/23 19:30 Glucose (Glucose 40% Gel 15 Gm Tube) 15 - 30 gm PO UD PRN; Protocol PRN Reason: Hypoglycemia Protocol Stop: 01/16/23 19:30 Glucose (Glucose 10 Tab/Tube) 4 - 8 tab PO UD PRN; Protocol PRN Reason: Hypoglycemia Treatment Stop: 01/16/23 19:30 Insulin Aspart (Insulin Aspart Per Unit) 0 units SC ACHS STEVE Stop: 01/16/23 20:59 Last Admin: 12/25/22 12:33 Dose: 5 units Lamotrigine (Lamotrigine 25 Mg Tab) 25 mg PO BID STEVE Stop: 01/18/23 08:59 Last Admin: 12/25/22 08:11 Dose: 25 mg Lorazepam (Lorazepam 2 Mg/1 Ml Vial) 1 mg IV Q8H PRN PRN Reason: Anxiety/Agitation Stop: 01/16/23 19:38 Last Admin: 12/21/22 03:02 Dose: 1 mg Magnesium Oxide (Magnesium Oxide 400 Mg Tab) 400 mg PO BID STEVE Stop: 01/17/23 09:29 Last Admin: 12/25/22 08:11 Dose: 400 mg Miscellaneous (Carbohydrates For Hypoglycemia ) 15 - 30 gm PO UD PRN PRN Reason: Hypoglycemia Protocol Stop: 01/16/23 19:30 Mupirocin (Mupirocin 2% Oint 22 Gm Tube) 1 appln EXT BID STEVE Stop: 01/22/23 20:59 Last Admin: 12/25/22 08:11 Dose: 1 appln Olanzapine (Olanzapine 10 Mg/2.1 Ml Sdv) 5 mg IM Q4H PRN PRN Reason: Agitation Stop: 01/17/23 13:14 Last Admin: 12/19/22 07:41 Dose: 5 mg Olanzapine (Olanzapine Zydis 5 Mg Orally Dis. Tab) 5 mg PO QAM [facility] Stop: 01/19/23 09:44 Last Admin: 12/25/22 08:11 Dose: 5 mg Olanzapine (Olanzapine Zydis 10 Mg Orally Dis. Tab) 10 mg PO HS [facility] Stop: 01/19/23 20:59 Last Admin: 12/24/22 19:22 Dose: 10 mg Pantoprazole Sodium (Pantoprazole 40 Mg Tab) 40 mg PO DAILY PRN PRN Reason: Acid Reflux Stop: 01/16/23 19:37 Sertraline HCl (Sertraline Hcl 100 Mg Tablet) 100 mg PO DAILY STEVE Stop: 01/17/23 08:59 Last Admin: 12/25/22 08:11 Dose: 100 mg (1) Schizoaffective disorder Schizoaffective disorder type: unspecified Qualified Code(s): F25.9 - Schizoaffective disorder, unspecified
[2022-12-25] MEDS: DIVALPROEX DELAY RELEASE 250 MG TABEC PO SCH (20:04)
--- NOTE | 2022-12-25 20:58 | Hospitalist Progress Note ---
Date of Service December 25, 2022 Assessment & Plan (1) Schizoaffective disorder: Plan: Appreciate psychiatric team input from Dr Abdullahi. Earlier in the stay his abilify was changed to zyprexa. Zyprexa dose last pm then increased to 20mg at HS due to psychotic symptoms. Today Dr Abdullahi performed bedside evaluation. Zyprexa dose reduced back to 10mg HS and depakote 250mg BID added. Zyprexa 5mg qam continued. Lamictal discontinued. Appreciate Dr Abdullahi's assistance and recs. (2) Intellectual disability: Plan: at least moderate I feel that he lacks medical decision making capacity Dr Abdullahi from psychiatry also feels he lacks capacity he previously was living alone there had been talk of him going to a hotel in the [place] area; he would be living alone living alone is simply not possible nor prudent he will need placement, a POA set up for him, etc I am not aware of any family close by -- will need to investigate this further appreciate psych assistance (3) Homeless: Plan: Case management working on housing options for him post-d/c. Due to lack of decision making capacity he cannot be placed in an independent living situation as that would likely lead to harm and unsafe environment for him. he will need placement but that may prove very difficult. (4) Hypomagnesemia: Plan: replaced/resolved (5) Heart failure: Plan: acute/chronic HFpEF echo findings from this admission reviewed s/p lasix this week appears compensated today (6) Diabetes: Plan: Hemoglobin A1c is only 6.4%. Very mild T2DM. Novolog SSI for now, but will likely start Metformin soon. BSGs have been well controlled. (7) COPD (chronic obstructive pulmonary disease): Plan: by report no symptoms/ signs of such at this time (8) Behavior disorder: Plan: see above (9) Impacted cerumen of both ears: Plan: debrox solution - 5cc BID to both canals x 3 days - has completed such (10) Dyspnea: Plan: likely due to CHF can't rule out COPD contributing but less likely dyspnea seems to have improved with diuresis (11) Hypertrophic toenail: Plan: x 10 he self-removed the right 4th toenail yesterday I consulted Dr Felix Ashford from podiatry who provided nail care today (trimmed the toenails) (12) B12 deficiency: Plan: cont B12 1000mcg daily B12 level = 157 (13) Iron deficiency: Plan: venofer 200mg on 12/24/22 venofer 300mg today will obtain fecal occult blood Plan DVT proph - doubt he will take SC injections consider xarelto 10mg once daily as long as H/H remain stable Admission and Anticipated Discharge Date Admission Date: December 20, 2022 Subjective patient resting in the chair during my rounds he was sleepy he offered no new complaints he said "I want to leave here" staff report ongoing, elaborate conversations when he is alone in the room, talking to people who are not actually present he gets restless, often walking about in the room or exiting the room and going into the hallway thus far staff can re-direct him back to the room Review of Systems Review of Systems: ROS- unable to be obtained due to sleepiness staff report he did not sleep well last pm despite increase in zyprexa dose Physical Exam Physical Exam: gen - morbidly obese, dysmorphic in appearance, very difficult to understand his speech; sleepy today (actually fell asleep while I was examining him) mouth - MMM; poor dentition eyes - right eye ptosis but symmetric smile and able to symmetrically wrinkle the forehead heart - RRR, s1 s2, 2/6 systolic murmur LSB lungs - decreased BS bases, otherwise CTA b/l abd - soft NT ND BS+ ext - no edema b/l, pulses 2+ b/l Results & Data Results & Data ([facility]) Vital Signs (Past 12 Hours) Vital Signs Temp Pulse Resp BP Pulse Ox O2 Del Method 12/25/22 20:48 36.6 C 96 H 20 119/81 94 Room Air 12/25/22 14:42 36.6 C 99 H 18 119/79 95 Room Air 12/25/22 10:17 36.8 C 89 16 110/72 95 Room Air Laboratory Results Laboratory Results - last 24 hr 12/25/22 12/25/22 12/25/22 08:09 09:29 12:16 Sodium 141 Potassium 3.9 Chloride 100 Carbon Dioxide 29 Anion Gap 12 H BUN 24 H Creatinine 1.19 Est Cr Clr Drug Dosing 67.9 Est GFR ( Amer) 73.9 Est GFR (Non-Af Amer) 63.7 BUN/Creatinine Ratio 20.2 H Glucose 136 H POC Glucose 113 H 116 H Calcium 10.0 12/25/22 12/25/22 17:09 20:37 Sodium Potassium Chloride Carbon Dioxide Anion Gap BUN Creatinine Est Cr Clr Drug Dosing Est GFR ( Amer) Est GFR (Non-Af Amer) BUN/Creatinine Ratio Glucose POC Glucose 107 H 109 H Calcium PG Care Time/CCT Total # of Minutes Spent Total Time Spent with Patient: Total time spent is greater than 50% in coordination of care (as documented) at patient's floor/unit and/or counseling patient: Coding Level of Care Code 75148 SUB INP/OBS CARE MIN Diagnoses Schizoaffective disorder F25.9 Schizoaffective disorder type: unspecified Intellectual disability F79 Homeless Z59.00 Hypomagnesemia E83.42 Heart failure I50.9 Diabetes E11.9 COPD (chronic obstructive pulmonary disease) J44.9 Behavior disorder Impacted cerumen of both ears H61.23 Dyspnea R06.00 Hypertrophic toenail L60.2 B12 deficiency E53.8 Iron deficiency E61.1 (1) Schizoaffective disorder Schizoaffective disorder type: unspecified Qualified Code(s): F25.9 - Schizoaffective disorder, unspecified
[2022-12-26] MEDS: CYANOCOBALAMIN (B-12) 500 MCG TABLET PO SCH (09:09)
[2022-12-26] MEDS: MUPIROCIN 2% OINT 22 GM TUBE EXT SCH ×2 (09:10→21:08)
[2022-12-26] MEDS: DIVALPROEX DELAY RELEASE 250 MG TABEC PO SCH (09:10)
[2022-12-26] MEDS: MAGNESIUM OXIDE 400 MG TAB PO SCH ×2 (09:10→21:07)
[2022-12-26] MEDS: OLANZapine ZYDIS 5 MG ORALLY DIS. TAB PO SCH (09:11)
[2022-12-26] MEDS: SERTRALINE HCL 100 MG TABLET PO SCH (09:11)
[2022-12-26] MEDS: INSULIN ASPART PER UNIT SC SCH ×4 (10:10→21:07)
--- NOTE | 2022-12-26 13:07 | Psychiatric Progress Note ---
Date of Service December 26, 2022 Impression / Recommendations Impression Mustapha is a 67 yo man from [facility], has a history of homelessness but mostly recently resided at a long-term facility (unclear why), has a history of seizures, CHF, T2DM, COPD, intellectual disability with significant dysarthria, schizoaffective disorder previously on abilify, sertraline, and lamictal (unclear if for hx of seizures vs mood stabilization) and has a variety of services in [facility] including involvement of Office of Aging, a [id number] who may be able to provide increased support in the outpatient setting, a rep payee Jesusita, and a medical case worker Isra through [facility]. Apparently his outpatient team in [facility] has deemed him capable of making his own independent decisions about where he lives (on the street versus in hotel paid for by his rep payee). There remain many unknowns about his presentation as historical information is limited including any prior testing regarding the degree of his intellectual disability/cognitive functioning, any history of prior CVAs/prior MRI imaging as dysarthria is very prominent and he demonstrates significant right eye droop, what his functional baseline looks like (how does he get food, does he get any additional support meeting his basic needs/ADLs, are there opportunities for additional outpatient support resources regarding this?), and what his psychiatric baseline looks like as no current evidence for acute psychosis and unclear if his conversations with family members and poor sleep are related to schizoaffective/possible hypomania versus due to underlying significant intellectual disability. At this time there are no signs of acute risk of harm to self or others and these are both low. In terms of decision making capacity it is foremost critical to emphasis that this assessment is task specific, dimensional and DOES NOT REPRESENT NOR CAN IT BE USED A MEANS OF ASSESSING GLOBAL LEGAL COMPETENCY OR NEED FOR GUARDIANSHIP. A LEGAL COMPETENCY ASSESSMENT IS SEPARATE, DISTINCT AND REQUIRES EXTENSIVE EVALUATION TYPICALLY TO INCLUDE FORMAL COGNITIVE ASSESSMENTS INCLUDING NEUROPSYCHOLOGICAL and IQ TESTING, DISCUSSION WITH LONGITUDINAL ASSOCIATES AND PROVIDERS WHO HAVE KNOWN A PATIENT OVER A PERIOD OF MONTHS OR YEARS, COMPREHENSIVE INTERVIEWS AND GENERALLY INVOLVEMENT OF SPECIALIZED FORENSIC PSYCHOLOGISTS OR PSYCHIATRISTS. 12/26/22: In this case I do not find that Mustapha currently has decision making capacity regarding where he will live on disposition nor does he have decision making capacity to leave AMA. This is based on his inability to state why he is the hospital, inability to state a clear choice, inability to describe the options available for where to live (i.e. hotel secured by rep payee), inability to appreciate consequences of his choices (i.e. cannot describe how he would meet his basic nutritional needs depending on where he goes) nor able to manipulate relevant information that case management has been discussing with him. The patient's decision making capacity could change in the future given that their mental status and various other factors can certainly fluctuate over time. Given that multiple outside supports have apparently been involved in his care over time I would strongly encourage that his outpatient medical case worker, brother in law, and rep payee be involved in discussions about these options and that best substituted judgment be used to determine what will be a safe and appropriate disposition living option as they are better able to speak to his longitudinal course, baseline status and seemingly will better understand how he meets his basic needs of groceries etc. Seems to be getting increasingly restless about being in the hospital and this fits with pattern observed at [facility] and apparent long-term preference to live outside/homelessness. No apparent side effects to Depakote and did finally sleep a little bit. Given worsening irritability will increase further to 500mg BID. Will try to avoid any further medication adjustments given he is likely more sensitive to medication side effects with intellectual disability and possible cognitive impairment/sundowning. (1) Schizoaffective disorder: (2) Intellectual disability: (3) Encephalopathy: Plan 12/26/22: -Increase Depakote DR to 500mg BID -Continue to attempt non-pharmacological efforts to reduce irritability: attempt distraction using food items (like ice cream or soda or things he enjoys) or TV shows he likes if restlessness increases -For behavioral emergency: 1st line: olanzapine 5mg IM (NEVER co-administer with IM or IV benzodiazepines). 2nd line: haldol 5mg IM and ativan 2mg IM (watch for possible disinhibition with ativan) 12/25/22: -Encourage CM to continue to involve his multiple outpatient supports to determine most appropriate and safe disposition plan using best substituted judgment -Encourage effort to gather external medical and psychiatric records including any past head imaging/cognitive workups/functional baseline -Start Depakote DR 250mg BID. He was unable to participation in discussion of medication risks/benefits but generally agrees to taking medication. Reviewed baseline labs of CBC with diff, LFTs, electrolytes which are stable for initiation of Depakote. -Continue olanzapine 5mg qAM and 10mg HS -Does not need safe tray, can have normal utensils and meal items -Will attempt to determine if he has any outpatient psychiatric providers in [facility] and if not will attempt to set this up if he consents to this Suicide Risk Level Suicide Risk Level: Low (q15 min observation checks) Risk Factors Assessment Male: Yes : Yes Do You Have Access To A Gun?: No Health Problems: Yes Mental Health Diagnoses: Yes Interval History Identifying Information 67 year old man from [facility] with a history of schizoaffective disorder, intellectual disability, seizure disorder, CHF, COPD, T2 DM, admitted medically after being brought to the ED for aggressive behavior at [facility]. Psychiatry was re-consulted for recommendations regarding medication management and decision making capacity about where to live. Chief Complaint "I'm not supposed to be here". Review of Systems Notes eating, poor sleep though napping on chair at times when I'm in his room Subjective Subjective Patient was seen & assessed and interval progress reviewed. Last night required 1-on-1 due to crawling around on his floor and into the zuniga and this morning put on his shoes and redirected by 1-on-1 as he wanted to leave the hospital. On my assessment he is sleeping in his chair, per 1-on-1 was awake much of the night. He awakens while I'm in the room and speech remains very garbled and dysarthric. He doesn't recall meeting me yesterday. Difficult to assess his level of orientation. Makes some type of statement about glasses and then tells me "I'm not supposed to be here". Further statements he makes, I'm unable to make out. Ate breakfast and even though provided with utensils chose to use his fingers to eat cereal and other items. Right eye was less droopy today. Physical Exam Psychiatric Orientation: alert and oriented to person; + not oriented to place and + not oriented to time Apperance: appropriately dressed and + disheveled Eye Contact: + fair eye contact Motor Behavior: no abnormal motor movements Speech: + abnormal rate/rhythm/volume of speech (dysarthria) Affect: + irritable affect and + constricted affect Mood: no depressed mood and no anxious mood Thought Process: + concrete thought process Thought Content: reality based without delusions Suicidal Thoughts: denies suicidal thoughts Homicidal Thoughts: denies homicidal thoughts Hallucinations: + auditory hallucinations (hears voices of family at times); no visual hallucinations Cognition: + recent memory not intact, + remote memory not intact, + attention not intact and + language not intact Insight: + severely impaired insight Judgment: + limited judgement Vital Signs (Past 24 Hours) Last Vital Signs Temp 36.6 C 12/26/22 10:41 Pulse 86 12/26/22 12:12 Resp 16 12/26/22 10:41 BP 110/70 12/26/22 10:41 Pulse Ox 94 12/26/22 12:12 O2 Del Method 12/26/22 12:12 Results & Data ([facility]) Laboratory Results Laboratory Results - last 24 hr 12/25/22 12/25/22 12/26/22 17:09 20:37 08:17 POC Glucose 107 H 109 H 112 H 12/26/22 12:10 POC Glucose 104 H Current Inpatient Medications Current Inpatient Medications: Current Inpatient Medications Acetaminophen (Acetaminophen 325 Mg Tab) 650 mg PO Q6H PRN PRN Reason: Pain (1,2,3) Albuterol (Albut/Ipratrop 3mg/0.5mg Neb 3 Ml Vial) 3 ml NEB QIDR PRN; Protocol PRN Reason: Shortness Of Breath Or Wheezing Stop: 01/17/23 06:59 Cyanocobalamin (Cyanocobalamin (B-12) 500 Mcg Tablet) 1,000 mcg PO QAM [facility] Stop: 01/23/23 10:14 Last Admin: 12/26/22 09:09 Dose: 1,000 mcg Dextrose (Dextrose 50% 50 Ml Syringe) 25 - 50 ml IV UD PRN; Protocol PRN Reason: Hypoglycemia Protocol Stop: 01/16/23 19:30 Divalproex Sodium (Divalproex Delay Release 250 Mg Tabec) 250 mg PO BID [facility] Stop: 01/24/23 20:59 Last Admin: 12/26/22 09:10 Dose: 250 mg Glucagon (Glucagon For Inj 1 Mg Vial) 1 mg SQ UD PRN; Protocol PRN Reason: Hypoglycemia Protocol Stop: 01/16/23 19:30 Glucose (Glucose 40% Gel 15 Gm Tube) 15 - 30 gm PO UD PRN; Protocol PRN Reason: Hypoglycemia Protocol Stop: 01/16/23 19:30 Glucose (Glucose 10 Tab/Tube) 4 - 8 tab PO UD PRN; Protocol PRN Reason: Hypoglycemia Treatment Stop: 01/16/23 19:30 Insulin Aspart (Insulin Aspart Per Unit) 0 units SC ACHS STEVE Stop: 01/16/23 20:59 Last Admin: 12/26/22 10:10 Dose: 3 units Lorazepam (Lorazepam 2 Mg/1 Ml Vial) 1 mg IV Q8H PRN PRN Reason: Anxiety/Agitation Stop: 01/16/23 19:38 Last Admin: 12/21/22 03:02 Dose: 1 mg Magnesium Oxide (Magnesium Oxide 400 Mg Tab) 400 mg PO BID STEVE Stop: 01/17/23 09:29 Last Admin: 12/26/22 09:10 Dose: 400 mg Miscellaneous (Carbohydrates For Hypoglycemia ) 15 - 30 gm PO UD PRN PRN Reason: Hypoglycemia Protocol Stop: 01/16/23 19:30 Mupirocin (Mupirocin 2% Oint 22 Gm Tube) 1 appln EXT BID STEVE Stop: 01/22/23 20:59 Last Admin: 12/26/22 09:10 Dose: 1 appln Olanzapine (Olanzapine 10 Mg/2.1 Ml Sdv) 5 mg IM Q4H PRN PRN Reason: Agitation Stop: 01/17/23 13:14 Last Admin: 12/19/22 07:41 Dose: 5 mg Olanzapine (Olanzapine Zydis 5 Mg Orally Dis. Tab) 5 mg PO QAM [facility] Stop: 01/19/23 09:44 Last Admin: 12/26/22 09:11 Dose: 5 mg Olanzapine (Olanzapine Zydis 10 Mg Orally Dis. Tab) 10 mg PO HS [facility] Stop: 01/24/23 20:59 Last Admin: 12/25/22 19:59 Dose: 10 mg Pantoprazole Sodium (Pantoprazole 40 Mg Tab) 40 mg PO DAILY PRN PRN Reason: Acid Reflux Stop: 01/16/23 19:37 Sertraline HCl (Sertraline Hcl 100 Mg Tablet) 100 mg PO DAILY STEVE Stop: 01/17/23 08:59 Last Admin: 12/26/22 09:11 Dose: 100 mg (1) Schizoaffective disorder Schizoaffective disorder type: unspecified Qualified Code(s): F25.9 - Schizoaffective disorder, unspecified
[2022-12-26] MEDS: DIVALPROEX DELAY RELEASE 500 MG TAB PO SCH (21:10)
--- NOTE | 2022-12-26 22:36 | Hospitalist Progress Note ---
Date of Service December 26, 2022 Assessment & Plan (1) Schizoaffective disorder: Plan: Appreciate psychiatric team input from Dr Abdullahi. Earlier in the stay his abilify was changed to zyprexa. Zyprexa dosing has been intermittently adjusted in response to his behaviors & psychosis. Zyprexa dose reduced back to 10mg HS and depakote 250mg BID added yesterday. Dr Abdullahi increased the depakote to 500mg BID today. Zyprexa 5mg qam continued. Lamictal discontinued. Appreciate Dr Abdullahi's assistance and recs. I spoke with Dr Abdullahi about his overall/general plan of care. At this time it is uncertain if his behaviors are rooted in his intellectual disability, acute delirium, chronic cognitive impairment/dementia, or from his schizoaffective disorder. When he is psychotic his symptoms are quite dramatic (talking to his sister in the room, talking to other people who are not in the room, etc). Wednesday - 12/28 - psych/hospitalist team/social work - ideally would have meeting to discuss his disposition. (2) Intellectual disability: Plan: at least moderate I feel that he lacks medical decision making capacity Dr Abdullahi from psychiatry also feels he lacks capacity he previously was living alone there had been talk of him going to a hotel in the [place] area; he would be living alone living alone is simply not possible nor prudent he will need placement, a POA set up for him, etc I am not aware of any family close by -- will need to investigate this further appreciate psych assistance (3) Homeless: Plan: Case management working on housing options for him post-d/c. Due to lack of decision making capacity he cannot be placed in an independent living situation as that would likely lead to harm and unsafe environment for him. he will need placement but that may prove very difficult. (4) Hypomagnesemia: Plan: replaced/resolved (5) Heart failure: Plan: acute/chronic HFpEF echo findings from this admission reviewed s/p lasix this week continues to be compensated with no pulmonary complaints and stable O2 sats in RA (6) Diabetes: Plan: Hemoglobin A1c is only 6.4%. Very mild T2DM. BSGs are excellent. Start metformin 500mg daily for DM. stop novolog. (7) COPD (chronic obstructive pulmonary disease): Plan: by report no symptoms/ signs of such at this time breathing improved with gentle diuresis this week (8) Behavior disorder: Plan: see #1 above (9) Impacted cerumen of both ears: Plan: s/p debrox solution - 5cc BID to both canals x 3 days - has completed such will need irrigation as outpatient (10) Dyspnea: Plan: likely due to CHF can't rule out COPD contributing but less likely dyspnea seems to have improved/ resolved with diuresis (11) Hypertrophic toenail: Plan: x 10 he self-removed the right 4th toenail 2 days ago I consulted Dr Felix Ashford from podiatry who provided nail care (trimmed all toenails) (12) B12 deficiency: Plan: cont B12 1000mcg daily B12 level = 157 (13) Iron deficiency: Plan: venofer 200mg on 12/24/22 venofer 300mg on 12/25/22 will obtain fecal occult blood Plan DVT proph - doubt he will take SC injections consider xarelto 10mg once daily in nuria of SC injections appreciate psych assistance care d/w Dr Abdullahi Admission and Anticipated Discharge Date Admission Date: December 20, 2022 Subjective patient has been restless throughout the day per staff getting up and walking around, leaving the room, etc agitated a 1:1 was placed back last pm due to this behavior during my visit the sitter was present at bedside Mr Montemayor was sitting in his chair he was agitated and confused, stating "I have surgery at 930 - I'm leaving" when asked what surgery he was having he stated "they are going to take something out of me" when asked who was doing this he responded "rA" he then looked up at the clock, and he asked what time it was it was clear he had a hard time reading the clock he kept saying over and over he was "going to leave" he circled back to the surgery several times per staff eating well when I went to examine him he told me to go away and became more agitated several times he said "let me go home - I'm going to stay with my dad" Review of Systems Review of Systems: cv - denies chest pain pulm - denies dyspnea GI - denies pain Physical Exam Physical Exam: complete exam unable to be performed due to patient agitation gen - sitting in chair, agitated, confused, paranoid (he accused me of holding him here so he couldn't attend his surgery); dysmorphic appearing eyes - the right eyelid is not droopy today mouth - macroglossia, poor dentition neuro - dysarthria unchanged psych - oriented to person only; agitated, confused Results & Data Results & Data ([facility]) Vital Signs (Past 12 Hours) Vital Signs Temp Pulse Pulse Resp BP Pulse Ox O2 Del Method 12/26/22 17:06 36.4 C L 87 19 134/86 93 Room Air 12/26/22 12:12 86 94 Room Air 12/26/22 10:41 36.6 C 99 H 16 110/70 95 Room Air Laboratory Results Laboratory Results - last 24 hr 12/26/22 12/26/22 12/26/22 08:17 12:10 17:01 POC Glucose 112 H 104 H 215 H 12/26/22 21:05 POC Glucose 101 H PG Care Time/CCT Total # of Minutes Spent Total Time Spent with Patient: Total time spent is greater than 50% in coordination of care (as documented) at patient's floor/unit and/or counseling patient: Coding Level of Care Code 99886 SUB INP/OBS CARE 2MIN Diagnoses Schizoaffective disorder F25.9 Schizoaffective disorder type: unspecified Intellectual disability F79 Homeless Z59.00 Hypomagnesemia E83.42 Heart failure I50.9 Diabetes E11.9 COPD (chronic obstructive pulmonary disease) J44.9 Behavior disorder Impacted cerumen of both ears H61.23 Dyspnea R06.00 Hypertrophic toenail L60.2 B12 deficiency E53.8 Iron deficiency E61.1 (1) Schizoaffective disorder Schizoaffective disorder type: unspecified Qualified Code(s): F25.9 - Schizoaffective disorder, unspecified
[2022-12-27] MEDS: OLANZapine ZYDIS 5 MG ORALLY DIS. TAB PO SCH (07:20)
[2022-12-27] MEDS: SERTRALINE HCL 100 MG TABLET PO SCH (07:20)
[2022-12-27] MEDS: CYANOCOBALAMIN (B-12) 500 MCG TABLET PO SCH (07:20)
[2022-12-27] MEDS: MAGNESIUM OXIDE 400 MG TAB PO SCH (07:21)
[2022-12-27] MEDS: MUPIROCIN 2% OINT 22 GM TUBE EXT SCH (07:21)
--- NOTE | 2022-12-27 10:17 | Psychiatric Progress Note ---
Date of Service December 27, 2022 Impression / Recommendations Cely Luciano is a 67 yo man from [facility], has a history of homelessness but mostly recently resided at a nursing home facility (unclear why), has a history of seizures, CHF, T2DM, COPD, intellectual disability with significant dysarthria, schizoaffective disorder previously on abilify, sertraline, and lamictal (unclear if for hx of seizures vs mood stabilization) and has a variety of services in [facility] including involvement of Office of Aging, a [id number] who may be able to provide increased support in the outpatient setting, a rep payee Jesusita, and a porter sample case Isra through [facility]. Apparently his outpatient team in [facility] has deemed him capable of making his own independent decisions about where he lives (on the street versus in hotel paid for by his rep payee). There remain many unknowns about his presentation as historical information is limited including any prior testing regarding the degree of his intellectual disability/cognitive functioning, any history of prior CVAs/prior MRI imaging as dysarthria is very prominent and he demonstrates significant right eye droop, what his functional baseline looks like (how does he get food, does he get any additional support meeting his basic needs/ADLs, are there opportunities for additional outpatient support resources regarding this?), and what his psychiatric baseline looks like as no current evidence for acute psychosis and unclear if his conversations with family members and poor sleep are related to schizoaffective/possible hypomania versus due to underlying significant intellectual disability. At this time there are no signs of acute risk of harm to self or others and these are both low. In terms of decision making capacity it is foremost critical to emphasis that this assessment is task specific, dimensional and DOES NOT REPRESENT NOR CAN IT BE USED A MEANS OF ASSESSING GLOBAL LEGAL COMPETENCY OR NEED FOR GUARDIANSHIP. A LEGAL COMPETENCY ASSESSMENT IS SEPARATE, DISTINCT AND REQUIRES EXTENSIVE EVALUATION TYPICALLY TO INCLUDE FORMAL COGNITIVE ASSESSMENTS INCLUDING NEUROPSYCHOLOGICAL and IQ TESTING, DISCUSSION WITH LONGITUDINAL ASSOCIATES AND PROVIDERS WHO HAVE KNOWN A PATIENT OVER A PERIOD OF MONTHS OR YEARS, COMPREHENSIVE INTERVIEWS AND GENERALLY INVOLVEMENT OF SPECIALIZED FORENSIC PSYCHOLOGISTS OR PSYCHIATRISTS. 12/27/22: Sleeping better with Depakote addition and able to come off 1-on-1. Will check level in 2 days. (1) Schizoaffective disorder: (2) Intellectual disability: (3) Encephalopathy: Plan 12/27/22: Ongoing efforts to determine what if any outpatient psych providers he has and baseline psychiatric status (?delusions/hallucinations at baseline) 12/26/22: -Increase Depakote DR to 500mg BID -Continue to attempt non-pharmacological efforts to reduce irritability: attempt distraction using food items (like ice cream or soda or things he enjoys) or TV shows he likes if restlessness increases -For behavioral emergency: 1st line: olanzapine 5mg IM (NEVER co-administer with IM or IV benzodiazepines). 2nd line: haldol 5mg IM and ativan 2mg IM (watch for possible disinhibition with ativan) 12/25/22: -Encourage CM to continue to involve his multiple outpatient supports to determine most appropriate and safe disposition plan using best substituted judgment -Encourage effort to gather external medical and psychiatric records including any past head imaging/cognitive workups/functional baseline -Start Depakote DR 250mg BID. He was unable to participation in discussion of medication risks/benefits but generally agrees to taking medication. Reviewed baseline labs of CBC with diff, LFTs, electrolytes which are stable for initiation of Depakote. -Continue olanzapine 5mg qAM and 10mg HS -Does not need safe tray, can have normal utensils and meal items -Will attempt to determine if he has any outpatient psychiatric providers in [facility] and if not will attempt to set this up if he consents to this Suicide Risk Level Suicide Risk Level: Low (q15 min observation checks) Risk Factors Assessment Male: Yes : Yes Do You Have Access To A Gun?: No Health Problems: Yes Mental Health Diagnoses: Yes Interval History Identifying Information 67 year old man from [facility] with a history of schizoaffective disorder, intellectual disability, seizure disorder, CHF, COPD, T2 DM, admitted medically after being brought to the ED for aggressive behavior at [facility]. Psychiatry was re-consulted for recommendations regarding medication management and decision making capacity about where to live. Chief Complaint sleeping Review of Systems Notes sleeping more, eating Subjective Subjective Patient was seen & assessed and interval progress reviewed. On my assessment Mustapha was sleeping and given reports of impulsivity earlier in the morning it was deemed non-beneficial to wake him. Appears to have slept throughout the night and able to come off 1-on-1. This morning while CINDER CRANE OPERATOR in the room he tried to run over in an impulsive and somewhat threatening manner but then de- escalated quickly when CINDER CRANE OPERATOR explained that he was getting machine to check blood pressure. Physical Exam Psychiatric Orientation: + not alert Affect: + constricted affect Estimated Intelligence: + below average estimated intelligence Insight: + severely impaired insight Judgment: + severely impaired judgement Vital Signs (Past 24 Hours) Last Vital Signs Temp 37 C 12/27/22 07:14 Pulse 97 H 12/27/22 07:14 Resp 18 12/27/22 07:14 BP 142/87 H 12/27/22 07:14 Pulse Ox 93 12/27/22 07:14 O2 Del Method 12/27/22 07:14 Results & Data ([facility]) Laboratory Results Laboratory Results - last 24 hr 12/26/22 12/26/22 12/26/22 12:10 17:01 21:05 POC Glucose 104 H 215 H 101 H 12/27/22 08:10 POC Glucose 102 H Current Inpatient Medications Current Inpatient Medications: Current Inpatient Medications Acetaminophen (Acetaminophen 325 Mg Tab) 650 mg PO Q6H PRN PRN Reason: Pain (1,2,3) Albuterol (Albut/Ipratrop 3mg/0.5mg Neb 3 Ml Vial) 3 ml NEB QIDR PRN; Protocol PRN Reason: Shortness Of Breath Or Wheezing Stop: 01/17/23 06:59 Cyanocobalamin (Cyanocobalamin (B-12) 500 Mcg Tablet) 1,000 mcg PO QAM [facility] Stop: 01/23/23 10:14 Last Admin: 12/27/22 07:20 Dose: 1,000 mcg Dextrose (Dextrose 50% 50 Ml Syringe) 25 - 50 ml IV UD PRN; Protocol PRN Reason: Hypoglycemia Protocol Stop: 01/16/23 19:30 Divalproex Sodium (Divalproex Delay Release 500 Mg Tab) 500 mg PO BID [facility] Stop: 01/25/23 20:59 Last Admin: 12/26/22 21:10 Dose: 500 mg Glucagon (Glucagon For Inj 1 Mg Vial) 1 mg SQ UD PRN; Protocol PRN Reason: Hypoglycemia Protocol Stop: 01/16/23 19:30 Glucose (Glucose 40% Gel 15 Gm Tube) 15 - 30 gm PO UD PRN; Protocol PRN Reason: Hypoglycemia Protocol Stop: 01/16/23 19:30 Glucose (Glucose 10 Tab/Tube) 4 - 8 tab PO UD PRN; Protocol PRN Reason: Hypoglycemia Treatment Stop: 01/16/23 19:30 Lorazepam (Lorazepam 2 Mg/1 Ml Vial) 1 mg IV Q8H PRN PRN Reason: Anxiety/Agitation Stop: 01/16/23 19:38 Last Admin: 12/21/22 03:02 Dose: 1 mg Magnesium Oxide (Magnesium Oxide 400 Mg Tab) 400 mg PO BID STEVE Stop: 01/17/23 09:29 Last Admin: 12/27/22 07:21 Dose: 400 mg Metformin HCl (Metformin Hcl Er 500 Mg Tabcr) 500 mg PO QAM STEVE Stop: 01/26/23 08:59 Miscellaneous (Carbohydrates For Hypoglycemia ) 15 - 30 gm PO UD PRN PRN Reason: Hypoglycemia Protocol Stop: 01/16/23 19:30 Mupirocin (Mupirocin 2% Oint 22 Gm Tube) 1 appln EXT BID STEVE Stop: 01/22/23 20:59 Last Admin: 12/27/22 07:21 Dose: 1 appln Olanzapine (Olanzapine 10 Mg/2.1 Ml Sdv) 5 mg IM Q4H PRN PRN Reason: Agitation Stop: 01/17/23 13:14 Last Admin: 12/19/22 07:41 Dose: 5 mg Olanzapine (Olanzapine Zydis 5 Mg Orally Dis. Tab) 5 mg PO QAM STEVE Stop: 01/19/23 09:44 Last Admin: 12/27/22 07:20 Dose: 5 mg Olanzapine (Olanzapine Zydis 10 Mg Orally Dis. Tab) 10 mg PO HS [facility] Stop: 01/24/23 20:59 Last Admin: 12/26/22 21:08 Dose: 10 mg Pantoprazole Sodium (Pantoprazole 40 Mg Tab) 40 mg PO DAILY PRN PRN Reason: Acid Reflux Stop: 01/16/23 19:37 Sertraline HCl (Sertraline Hcl 100 Mg Tablet) 100 mg PO DAILY STEVE Stop: 01/17/23 08:59 Last Admin: 12/27/22 07:20 Dose: 100 mg (1) Schizoaffective disorder Schizoaffective disorder type: unspecified Qualified Code(s): F25.9 - Schizoaffective disorder, unspecified
[2022-12-27] MEDS: DIVALPROEX DELAY RELEASE 500 MG TAB PO SCH (10:49)
[2022-12-27] MEDS: metFORMIN HCL ER 500 MG TABCR PO SCH (10:49)
--- NOTE | 2022-12-27 13:12 | Hospitalist Progress Note ---
Date of Service December 27, 2022 Assessment & Plan (1) Schizoaffective disorder: Plan: Appreciate psychiatric team input from Dr Abdullahi. Current med regimen - * Zyprexa 10mg HS and 5mg qam * Zyprexa 5mg IM q4h prn agitation/aggressive behavior/severe psychosis * Depakote 500mg BID * Zoloft 100mg daily * ativan prn Lamictal discontinued. Abilify discontinued. 12/26 - I spoke with Dr Abdullahi about his overall/general plan of care. At this time it is uncertain if his behaviors are rooted in his intellectual disability, acute delirium, chronic cognitive impairment/dementia, or from his schizoaffective disorder. When he is psychotic his symptoms are quite dramatic (talking to his sister in the room, talking to other people who are not in the room, etc). These symptoms have improved with med additions/adjustments above. Wednesday - 12/28 - psych/hospitalist team/social work - ideally would have meeting to discuss his disposition. HE IS WITHOUT MEDICAL CAPACITY AND IS UNFIT TO LIVE INDEPENDENTLY. (2) Intellectual disability: Plan: at least moderate OR moderate-severe I feel that he lacks medical decision making capacity Dr Abdullahi from psychiatry also feels he lacks capacity he previously was living alone there had been talk of him going to a hotel in the [place] area; he would be living alone living alone is simply not possible nor prudent; he cannot perform self-care, and again does not possess medical decision making capacity he will need placement, a POA set up for him, etc I am not aware of any family close by -- will need to investigate this further appreciate psych assistance (3) Homeless: Plan: Case management working on housing options for him post-d/c. Due to lack of decision making capacity he cannot be placed in an independent living situation as that would likely lead to harm and unsafe environment for him. he will need placement but that may prove very difficult. (4) Hypomagnesemia: Plan: replaced/resolved repeat level am (5) Heart failure: Plan: acute/chronic HFpEF echo findings from this admission reviewed s/p lasix last week continues to be compensated with no pulmonary complaints and stable O2 sats in RA (6) Diabetes: Plan: Hemoglobin A1c is only 6.4%. Very mild T2DM. BSGs are excellent. Start metformin 500mg daily for DM. stop novolog. Check BSG only once a day to minimize the risk of agitating him. (7) COPD (chronic obstructive pulmonary disease): Plan: by report no symptoms/ signs of such at this time breathing improved with gentle diuresis this week (8) Behavior disorder: Plan: see #1 above (9) Impacted cerumen of both ears: Plan: s/p debrox solution - 5cc BID to both canals x 3 days - has completed such will need irrigation as outpatient (10) Dyspnea: Plan: likely due to CHF can't rule out COPD contributing but less likely dyspnea resolved with diuresis (11) Hypertrophic toenail: Plan: x 10 he self-removed the right 4th toenail 2 days ago I consulted Dr Felix Ashford from podiatry who provided nail care (trimmed all toenails) (12) B12 deficiency: Plan: cont B12 1000mcg daily B12 level = 157 (13) Iron deficiency: Plan: venofer 200mg on 12/24/22 venofer 300mg on 12/25/22 will obtain fecal occult blood when able consider 1 additional run of venofer while here ferritin level only 29 (14) Joint pain: Plan: patient complaining of pain in various areas including neck, l-spine, right leg, right knee area, etc I was uncertain which area was giving him the most pain I obtained x-rays of c-spine, l-spine, and R knee no fractures no serious pathology check a CPK in am replace the low B12 etiology of acute onset of these pains? try voltaren gel 4gm qid to R knee, l-spine, etc re-eval tomorrow Plan DVT proph - start xarelto 10mg once daily in nuria of SC injections (less injections = less provocation of agitation) appreciate psych assistance Admission and Anticipated Discharge Date Admission Date: December 20, 2022 Subjective pt more cooperative during the exam today he had been walking about in his room just before my arrival when I came into his room he was walking with a limp it was hard to elicit a history re: his legs but he kept pointing to the distal R thigh and R knee he then started to complain about the left leg, l-spine, and c-spine in the middle of the exam he simply went back to bed to rest Review of Systems Review of Systems: gen - eating well per staff cv - no orthopnea pulm - denies dyspnea GI - last BM? Physical Exam Physical Exam: gen - less agitated overall today eyes - the right eyelid is not droopy today mouth - macroglossia, poor dentition neck - no JVD; tender paraspinal regions of posterior neck heart - RRR, s1 s2, 2/6 NAUN LSB lungs - CTA b/l abd - soft NT ND BS+ ext - no edema, pulses 2+ b/l neuro - dysarthria unchanged; strength b/l arms & legs 5/5 psych - oriented to person only; agitation today MUCH better musculo - tender over lumbar spine; tender over cervical spine (posteriorly) to palpation and spontaneous range of motion; tender over expected location of suprapatellar bursa on right Results & Data Results & Data ([facility]) Vital Signs (Past 12 Hours) Vital Signs Temp Pulse Resp BP Pulse Ox O2 Del Method 12/27/22 07:14 37 C 97 H 18 142/87 H 93 Room Air Laboratory Results Laboratory Results - last 24 hr 12/26/22 12/26/22 12/27/22 17:01 21:05 08:10 POC Glucose 215 H 101 H 102 H Diagnostic Findings Cervical Spine X-Ray 12/27/22 13:10 CERVICAL SPINE 3 VIEWS CLINICAL HISTORY: Cervicalgia. FINDINGS: AP, lateral, and odontoid views of the cervical spine are obtained. No prior studies are available for comparison at time of dictation. The skeletal structures are osteopenic. Vertebral body height and alignment are maintained. There is no radiographic evidence of fracture or subluxation involving the cervical spine. There is straightening of the cervical lordosis. Anterior osteophytes are seen throughout. The odontoid process and lateral masses appear intact as seen on the open-mouth view. Productive degenerative change is noted at the atlantodental articulation. The spinolaminar line is preserved. The sp inous processes appear intact. There is severe disc space narrowing at C6-C7. Moderate disc space narrowing is seen at C4-C5 and C5-C6. Posterior disc osteophyte complexes at C4-C5, C5-C6, and C6-C7 may contribute to acquired compromise of the central canal. Multilevel facet arthropathy is noted on the frontal view. The prevertebral soft tissues are within normal limits. The patient is edentulous. There is atherosclerotic calcification of the carotid bulbs. Upper lobe lung parenchyma is grossly clear noting parenchymal scarring. IMPRESSION: 1. No acute bony abnormality is seen involving the cervical spine. 2. Osteopenia and spondylotic change as above. Dictated: 12/27/2022 2:41 PM Transcribed: 12/27/2022 3:08 PM Shaista [id number] [email or web address] Electronically signed by: Panchito Wright M.D. 12/27/2022 3:16 PM Knee X-Ray 12/27/22 13:10 RIGHT KNEE 2 VIEWS CLINICAL HISTORY: Right knee pain. FINDINGS: AP and crosstable lateral views of the right knee are obtained. No prior studies are available for comparison at the time of dictation. The skeletal structures appear osteopenic. No fracture is seen. There is minimal tricompartmental degenerative joint space narrowing. No joint effusion is identified. Mild prepatellar soft tissue swelling is observed. There is atherosclerotic calcification of the popliteal artery. IMPRESSION: No acute bony abnormality is identified. Electronically signed by: Panchito Wright M.D. 12/27/2022 2:41 PM Lumbar Spine X-Ray 12/27/22 13:10 LUMBAR SPINE 3 VIEWS CLINICAL HISTORY: Low back pain. FINDINGS: 3 views of the lumbar spine are obtained. No prior studies are available for comparison at the time of dictation. The skeletal structures are osteopenic. There is no radiographic evidence of fracture or malalignment. Vertebral body height and alignment are maintained. Small anterior and lateral marginal osteophytes are seen throughout. The transverse and spinous processes are intact. There is mild disc space narrowing at L5-S1. The remaining disc spaces appear maintained. Mild facet arthropathy is noted in the lower lumbar region. The visualized bony pelvis appears intact. There is a nonobstructed abdominal bowel gas pattern. Moderate fecal retention is seen throughout the colon. There is advanced atherosclerotic calcification and ectasia of the abdominal aorta. IMPRESSION: 1. No acute bony abnormality is seen involving the lumbar spine. 2. Osteopenia and mild spondylotic change as above. ACT 112: Negative or not required by law. Electronically signed by: Panchito Wright M.D. 12/27/2022 2:45 PM PG Care Time/CCT Total # of Minutes Spent Total Time Spent with Patient: Total time spent is greater than 50% in coordination of care (as documented) at patient's floor/unit and/or counseling patient: Coding Level of Care Code 16939 SUB INP/OBS CARE MIN Diagnoses Schizoaffective disorder F25.9 Schizoaffective disorder type: unspecified Intellectual disability F79 Homeless Z59.00 Hypomagnesemia E83.42 Heart failure I50.9 Diabetes E11.9 COPD (chronic obstructive pulmonary disease) J44.9 Behavior disorder Impacted cerumen of both ears H61.23 Dyspnea R06.00 Hypertrophic toenail L60.2 B12 deficiency E53.8 Iron deficiency E61.1 Joint pain M25.50 (1) Schizoaffective disorder Schizoaffective disorder type: unspecified Qualified Code(s): F25.9 - Schizoaffective disorder, unspecified
[2022-12-27] MEDS: ACETAMINOPHEN 500 MG TAB PO SCH (14:18)
[2022-12-27] MEDS: RIVAROXABAN 10 MG TABLET PO SCH (14:18)
--- NOTE | 2022-12-27 14:43 | XRay Report ---
RIGHT KNEE 2 VIEWS CLINICAL HISTORY: Right knee pain. FINDINGS: AP and crosstable lateral views of the right knee are obtained. No prior studies are availa ble for comparison at the time of dictation. The skeletal structures appear osteopenic. No fracture i s seen. There is minimal tricompartmental degenerative joint space narrowing. No joint effusion is id entified. Mild prepatellar soft tissue swelling is observed. There is atherosclerotic calcification o f the popliteal artery. IMPRESSION: No acute bony abnormality is identified. Electronically signed by: Panchito Wright M.D. 12/27/2022 2:41 PM
--- NOTE | 2022-12-27 14:47 | XRay Report ---
LUMBAR SPINE 3 VIEWS CLINICAL HISTORY: Low back pain. FINDINGS: 3 views of the lumbar spine are obtained. No prior studies are available for comparison at the time of dictation. The skeletal structures are osteopenic. There is no radiographic evidence of fracture or malalignment. Vertebral body height and alignment are maintained. Small anterior and late ral marginal osteophytes are seen throughout. The transverse and spinous processes are intact. There is mild disc space narrowing at L5-S1. The remaining disc spaces appear maintained. Mild facet arthro christopher is noted in the lower lumbar region. The visualized bony pelvis appears intact. There is a nono bstructed abdominal bowel gas pattern. Moderate fecal retention is seen throughout the colon. There i s advanced atherosclerotic calcification and ectasia of the abdominal aorta. IMPRESSION: 1. No acute bony abnormality is seen involving the lumbar spine. 2. Osteopenia and mild spondylotic change as above. ACT 112: Negative or not required by law. Electronically signed by: Panchito Wright M.D. 12/27/2022 2:45 PM
--- NOTE | 2022-12-27 15:17 | XRay Report ---
CERVICAL SPINE 3 VIEWS CLINICAL HISTORY: Cervicalgia. FINDINGS: AP, lateral, and odontoid views of the cervical spine are obtained. No prior studies are av ailable for comparison at time of dictation. The skeletal structures are osteopenic. Vertebral body h eight and alignment are maintained. There is no radiographic evidence of fracture or subluxation invo lving the cervical spine. There is straightening of the cervical lordosis. Anterior osteophytes are s een throughout. The odontoid process and lateral masses appear intact as seen on the open-mouth view. Productive degenerative change is noted at the atlantodental articulation. The spinolaminar line is preserved. The spinous processes appear intact. There is severe disc space narrowing at C6-C7. Modera te disc space narrowing is seen at C4-C5 and C5-C6. Posterior disc osteophyte complexes at C4-C5, C5- C6, and C6-C7 may contribute to acquired compromise of the central canal. Multilevel facet arthropath y is noted on the frontal view. The prevertebral soft tissues are within normal limits. The patient i s edentulous. There is atherosclerotic calcification of the carotid bulbs. Upper lobe lung parenchyma is grossly clear noting parenchymal scarring. IMPRESSION: 1. No acute bony abnormality is seen involving the cervical spine. 2. Osteopenia and spondylotic change as above. Dictated: 12/27/2022 2:41 PM Transcribed: 12/27/2022 3:08 PM Shaista [id number] [email or web address] Electronically signed by: Panchito Wright M.D. 12/27/2022 3:16 PM
[2022-12-27] MEDS: DICLOFENAC SOD 1% GEL 100 GM TUBE EXT SCH (18:11)
[2022-12-28] MEDS: ACETAMINOPHEN 500 MG TAB PO SCH ×5 (00:44→20:55)
[2022-12-28] MEDS: DICLOFENAC SOD 1% GEL 100 GM TUBE EXT SCH ×5 (00:46→20:51)
[2022-12-28] MEDS: MUPIROCIN 2% OINT 22 GM TUBE EXT SCH ×3 (00:46→20:52)
[2022-12-28] MEDS: DIVALPROEX DELAY RELEASE 500 MG TAB PO SCH ×3 (00:46→20:53)
[2022-12-28] MEDS: MAGNESIUM OXIDE 400 MG TAB PO SCH ×3 (00:46→20:55)
[2022-12-28] MEDS: CYANOCOBALAMIN (B-12) 500 MCG TABLET PO SCH (08:11)
[2022-12-28] MEDS: SERTRALINE HCL 100 MG TABLET PO SCH (08:11)
[2022-12-28] MEDS: OLANZapine ZYDIS 5 MG ORALLY DIS. TAB PO SCH (08:11)
[2022-12-28] MEDS: RIVAROXABAN 10 MG TABLET PO SCH (08:11)
[2022-12-28] MEDS: metFORMIN HCL ER 500 MG TABCR PO SCH (08:11)
[2022-12-28 09:48] LABS: BUN Creatinine Ratio 18.9 (10-20); Calcium 9.9 mg/dl (8.5-10.1); Creatinine Clr Calc Pharmacy 89.7 ml/min; Est GFR (African American) 103.5 ml/min; Est GFR (Non-African American) 89.3 ml/min; Magnesium 2.1 mg/dl (1.7-2.4)
--- NOTE | 2022-12-28 11:48 | Psychiatric Progress Note ---
Date of Service December 28, 2022 Impression / Recommendations Cely Luciano is a 67 yo man from [facility], has a history of homelessness but mostly recently resided at a detention facility (unclear why), has a history of seizures, CHF, T2DM, COPD, intellectual disability with significant dysarthria, schizoaffective disorder previously on abilify, sertraline, and lamictal (unclear if for hx of seizures vs mood stabilization) and has a variety of services in [facility] including involvement of [facility], a [employer] who may be able to provide increased support in the outpatient setting, a rep payee Jesusita, and a case monitor Isra through [facility]. Apparently his outpatient team in [facility] has deemed him capable of making his own independent decisions about where he lives (on the street versus in hotel paid for by his rep payee). There remain many unknowns about his presentation as historical information is limited including any prior testing regarding the degree of his intellectual disability/cognitive functioning, any history of prior CVAs/prior MRI imaging as dysarthria is very prominent and he demonstrates significant right eye droop, what his functional baseline looks like (how does he get food, does he get any additional support meeting his basic needs/ADLs, are there opportunities for additional outpatient support resources regarding this?), and what his psychiatric baseline looks like as no current evidence for acute psychosis and unclear if his conversations with family members and poor sleep are related to schizoaffective/possible hypomania versus due to underlying significant intellectual disability. At this time there are no signs of acute risk of harm to self or others and these are both low. In terms of decision making capacity it is foremost critical to emphasis that this assessment is task specific, dimensional and DOES NOT REPRESENT NOR CAN IT BE USED A MEANS OF ASSESSING GLOBAL LEGAL COMPETENCY OR NEED FOR GUARDIANSHIP. A LEGAL COMPETENCY ASSESSMENT IS SEPARATE, DISTINCT AND REQUIRES EXTENSIVE EVALUATION TYPICALLY TO INCLUDE FORMAL COGNITIVE ASSESSMENTS INCLUDING NEUROPSYCHOLOGICAL and IQ TESTING, DISCUSSION WITH LONGITUDINAL ASSOCIATES AND PROVIDERS WHO HAVE KNOWN A PATIENT OVER A PERIOD OF MONTHS OR YEARS, COMPREHENSIVE INTERVIEWS AND GENERALLY INVOLVEMENT OF SPECIALIZED FORENSIC PSYCHOLOGISTS OR PSYCHIATRISTS. 12/28/22: Mood improved, no evidence of psychosis or agitation today. Able to participate more with interview. Will check Depakote level tomorrow AM. Participated in interdisciplinary team meeting with case monitor, psych liason and Dr. Koo. Goal of determining if he has a safe disposition option with focus on how he gets food and establishing outpatient psych follow-up. (1) Intellectual disability: (2) Schizoaffective disorder: Plan 12/28/22: Depakote level tomorrow AM. 12/27/22: Ongoing efforts to determine what if any outpatient psych providers he has and baseline psychiatric status (?delusions/hallucinations at baseline) 12/26/22: -Increase Depakote DR to 500mg BID -Continue to attempt non-pharmacological efforts to reduce irritability: attempt distraction using food items (like ice cream or soda or things he enjoys) or TV shows he likes if restlessness increases -For behavioral emergency: 1st line: olanzapine 5mg IM (NEVER co-administer with IM or IV benzodiazepines). 2nd line: haldol 5mg IM and ativan 2mg IM (watch for possible disinhibition with ativan) 12/25/22: -Encourage CM to continue to involve his multiple outpatient supports to determine most appropriate and safe disposition plan using best substituted judgment -Encourage effort to gather external medical and psychiatric records including any past head imaging/cognitive workups/functional baseline -Start Depakote DR 250mg BID. He was unable to participation in discussion of medication risks/benefits but generally agrees to taking medication. Reviewed baseline labs of CBC with diff, LFTs, electrolytes which are stable for initiation of Depakote. -Continue olanzapine 5mg qAM and 10mg HS -Does not need safe tray, can have normal utensils and meal items -Will attempt to determine if he has any outpatient psychiatric providers in [facility] and if not will attempt to set this up if he consents to this Suicide Risk Level Suicide Risk Level: Low (q15 min observation checks) Risk Factors Assessment Male: Yes : Yes Do You Have Access To A Gun?: No Health Problems: Yes Mental Health Diagnoses: Yes Interval History Identifying Information 67 year old man from [facility] with a history of schizoaffective disorder, intellectual disability, seizure disorder, CHF, COPD, T2 DM, admitted medically after being brought to the ED for aggressive behavior at [facility]. Psychiatry was re-consulted for recommendations regarding medication management and decision making capacity about where to live. Chief Complaint "I'm fine". Review of Systems Notes sleeping well, eating well Subjective Subjective Patient was seen & assessed and interval progress reviewed. Slept well overnight. Has remained off 1-on-1. Awakens with verbal prompting. Looks at the clock and states "is it 10:30 already?" which was accurate of the time. Tells me his stomach "doesn't feel good" and thinks he needs to go for an operation. oriented to hospital, doesn't known city responds with [place], month November and year 2021. Notes that his parents are when I ask about SI. He denies any SI. He denies hearing any voices. Tells me he has a rep payee but can't say how he gets food. Recalls Isra, his outpt CM, and signs JESSICA for him. Says Isra helps him with things. Agrees that he stays at a hotel. Besides stomach issues no other notable side effects he identifies from Depakote or his medications. Physical Exam Psychiatric Orientation: alert and oriented to person; + not oriented to place and + not oriented to time Apperance: appropriately dressed Eye Contact: + fair eye contact Motor Behavior: no abnormal motor movements Speech: + abnormal rate/rhythm/volume of speech (dysarthria) Affect: euthymic affect Mood: no depressed mood and no anxious mood Thought Process: + concrete thought process Thought Content: reality based without delusions Suicidal Thoughts: denies suicidal thoughts Homicidal Thoughts: denies homicidal thoughts Hallucinations: no auditory hallucinations and no visual hallucinations Cognition: attention grossly intact; + recent memory not intact, + remote memory not intact and + language not intact Insight: + severely impaired insight Judgment: + limited judgement Vital Signs (Past 24 Hours) Last Vital Signs Temp 37.1 C 12/28/22 07:51 Pulse 79 12/28/22 07:51 Resp 16 12/28/22 07:51 BP 118/76 12/28/22 07:51 Pulse Ox 94 12/28/22 07:51 O2 Del Method 12/28/22 07:51 Results & Data ([facility]) Laboratory Results Laboratory Results - last 24 hr 12/28/22 12/28/22 08:13 08:26 Sodium 142 Potassium 4.0 Chloride 102 Carbon Dioxide 36 H Anion Gap 4 BUN 17 Creatinine 0.90 Est Cr Clr Drug Dosing 89.7 Est GFR ( Amer) 103.5 Est GFR (Non-Af Amer) 89.3 BUN/Creatinine Ratio 18.9 Glucose 109 H POC Glucose 88 Calcium 9.9 Magnesium 2.1 Total Creatine Kinase 23 L Current Inpatient Medications Current Inpatient Medications: Current Inpatient Medications Acetaminophen (Acetaminophen 325 Mg Tab) 650 mg PO Q6H PRN PRN Reason: Pain (1,2,3) Stop: 01/19/23 19:37 Acetaminophen (Acetaminophen 500 Mg Tab) 1,000 mg PO Q8H [facility] Stop: 01/26/23 13:59 Last Admin: 12/28/22 05:51 Dose: Not Given Albuterol (Albut/Ipratrop 3mg/0.5mg Neb 3 Ml Vial) 3 ml NEB QIDR PRN; Protocol PRN Reason: Shortness Of Breath Or Wheezing Stop: 01/17/23 06:59 Cyanocobalamin (Cyanocobalamin (B-12) 500 Mcg Tablet) 1,000 mcg PO QAM [facility] Stop: 01/23/23 10:14 Last Admin: 12/28/22 08:11 Dose: 1,000 mcg Dextrose (Dextrose 50% 50 Ml Syringe) 25 - 50 ml IV UD PRN; Protocol PRN Reason: Hypoglycemia Protocol Stop: 01/16/23 19:30 Diclofenac Sodium (Diclofenac Sod 1% Gel 100 Gm Tube) 4 gm EXT QID STEVE; Protocol Stop: 01/26/23 16:59 Last Admin: 12/28/22 08:12 Dose: Not Given Divalproex Sodium (Divalproex Delay Release 500 Mg Tab) 500 mg PO BID [facility] Stop: 01/25/23 20:59 Last Admin: 12/28/22 08:11 Dose: 500 mg Glucagon (Glucagon For Inj 1 Mg Vial) 1 mg SQ UD PRN; Protocol PRN Reason: Hypoglycemia Protocol Stop: 01/16/23 19:30 Glucose (Glucose 40% Gel 15 Gm Tube) 15 - 30 gm PO UD PRN; Protocol PRN Reason: Hypoglycemia Protocol Stop: 01/16/23 19:30 Glucose (Glucose 10 Tab/Tube) 4 - 8 tab PO UD PRN; Protocol PRN Reason: Hypoglycemia Treatment Stop: 01/16/23 19:30 Lorazepam (Lorazepam 2 Mg/1 Ml Vial) 1 mg IV Q8H PRN PRN Reason: Anxiety/Agitation Stop: 01/16/23 19:38 Last Admin: 12/21/22 03:02 Dose: 1 mg Magnesium Oxide (Magnesium Oxide 400 Mg Tab) 400 mg PO BID [facility] Stop: 01/17/23 09:29 Last Admin: 12/28/22 08:11 Dose: 400 mg Metformin HCl (Metformin Hcl Er 500 Mg Tabcr) 500 mg PO QAM STEVE Stop: 01/26/23 08:59 Last Admin: 12/28/22 08:11 Dose: 500 mg Miscellaneous (Carbohydrates For Hypoglycemia ) 15 - 30 gm PO UD PRN PRN Reason: Hypoglycemia Protocol Stop: 01/16/23 19:30 Mupirocin (Mupirocin 2% Oint 22 Gm Tube) 1 appln EXT BID STEVE Stop: 01/22/23 20:59 Last Admin: 12/28/22 08:12 Dose: Not Given Olanzapine (Olanzapine 10 Mg/2.1 Ml Sdv) 5 mg IM Q4H PRN PRN Reason: Agitation Stop: 01/17/23 13:14 Last Admin: 12/19/22 07:41 Dose: 5 mg Olanzapine (Olanzapine Zydis 5 Mg Orally Dis. Tab) 5 mg PO QAM [facility] Stop: 01/19/23 09:44 Last Admin: 12/28/22 08:11 Dose: 5 mg Olanzapine (Olanzapine Zydis 10 Mg Orally Dis. Tab) 10 mg PO HS [facility] Stop: 01/24/23 20:59 Last Admin: 12/28/22 00:44 Dose: 10 mg Pantoprazole Sodium (Pantoprazole 40 Mg Tab) 40 mg PO DAILY PRN PRN Reason: Acid Reflux Stop: 01/16/23 19:37 Rivaroxaban (Rivaroxaban 10 Mg Tablet) 10 mg PO DAILY STEVE Stop: 01/26/23 11:59 Last Admin: 12/28/22 08:11 Dose: 10 mg Sertraline HCl (Sertraline Hcl 100 Mg Tablet) 100 mg PO DAILY STEVE Stop: 01/17/23 08:59 Last Admin: 12/28/22 08:11 Dose: 100 mg (1) Schizoaffective disorder Schizoaffective disorder type: unspecified Qualified Code(s): F25.9 - Schizoaffective disorder, unspecified
--- NOTE | 2022-12-28 19:58 | Hospitalist Progress Note ---
Date of Service December 28, 2022 Assessment & Plan (1) Schizoaffective disorder: Plan: Appreciate psychiatric team input from Dr Abdullahi. Current med regimen - * Zyprexa 10mg HS and 5mg qam * Zyprexa 5mg IM q4h prn agitation/aggressive behavior/severe psychosis * Depakote 500mg BID * Zoloft 100mg daily * ativan prn Lamictal discontinued. Abilify discontinued. Behavior and psychosis have both improved with the above regimen of meds. At this time it is uncertain if his behaviors are rooted in his intellectual disability, acute delirium, chronic cognitive impairment/dementia, or from his schizoaffective disorder. When he is psychotic his symptoms are quite dramatic (talking to his sister in the room, talking to other people who are not in the room, etc). Today I met with Dr Abdullahi and case management to discuss his overall care plan, disposition, etc. At this time his disposition is uncertain. His last place of residence was a hotel in [place] but, by report, the patient was mainly homeless and staying on the streets. HE IS WITHOUT MEDICAL CAPACITY AND IS UNFIT TO LIVE INDEPENDENTLY. Appreciate psych and case management assistance. Disposition uncertain. Psychiatry does not feel that, at this time, he requires inpatient psych treatment. (2) Intellectual disability: Plan: at least moderate OR moderate-severe Patient lacks medical decision making capacity He cannot perform self-care, cannot live independently, etc. see #1 above (3) Homeless: Plan: Case management working on housing options for him post-d/c. Due to lack of decision making capacity he cannot be placed in an independent living situation as that would likely lead to harm and unsafe environment for him. he will need placement but that may prove very difficult. [place] (4) Hypomagnesemia: Plan: replaced/resolved (5) Heart failure: Plan: acute/chronic HFpEF echo findings from this admission reviewed s/p lasix last week with resolution of dyspnea continues to be compensated (6) Diabetes: Plan: Hemoglobin A1c is only 6.4%. Very mild T2DM. BSGs are excellent. Started metformin 500mg daily for DM. stopped novolog. Check BSG only once a day to minimize the risk of agitating him with frequent BSGs. (7) COPD (chronic obstructive pulmonary disease): Plan: by report no symptoms/ signs of such at this time breathing improved with gentle diuresis last week (8) Behavior disorder: Plan: see #1 above (9) Impacted cerumen of both ears: Plan: s/p debrox solution - 5cc BID to both canals x 3 days - has completed such will need irrigation as outpatient (10) Dyspnea: Plan: likely due to CHF can't rule out COPD contributing but less likely dyspnea resolved with diuresis (11) Hypertrophic toenail: Plan: x 10 he self-removed the right 4th toenail several days ago I consulted Dr Felix Ashford from podiatry who provided nail care (trimmed all toenails) (12) B12 deficiency: Plan: cont B12 1000mcg daily B12 level = 157 (13) Iron deficiency: Plan: venofer 200mg on 12/24/22 venofer 300mg on 12/25/22 will obtain fecal occult blood when able consider 1 additional run of venofer while here ferritin level only 29 (14) Joint pain: Plan: 12/27/22 - patient complaining of pain in various areas including neck, l-spine, right leg, right knee area, etc I was uncertain which area was giving him the most pain I obtained x-rays of c-spine, l-spine, and R knee no fractures no serious pathology OA/DJD only CPK wnl replacing low B12 etiology of acute onset of these pains? uncertain, but these complaints were essentially resolved today cont voltaren gel 4gm qid to R knee, l-spine, etc Plan DVT proph - xarelto 10mg once daily in nuria of SC injections (less injections = less provocation of agitation) appreciate psych assistance appreciate social work assistance complex care coordination today with formal meeting with psych/social work, etc Admission and Anticipated Discharge Date Admission Date: December 20, 2022 Subjective patient lying in bed comfortably he voices no complaints he states "It's lunch time - I want to eat" denies feeling short of breath denies pain in his neck, back or right knee today I met today with case management and psychiatry to discuss his care plan all present agreed he cannot live independently he would be best served in a [place] setting his outpatient intensive care worker is located in [facility] [place] from case management has been in touch with that manager case management patient has a brother in law who is the next of kin but we do not have contact information for him we are attempting to get additional records from the [facility] re: psych history, etc. Review of Systems Review of Systems: cv - no chest pain pulm - no dyspnea today GI - no abd pain Physical Exam Physical Exam: gen - calm today, follows commands, alert eyes - the right eyelid is droopy again mouth - macroglossia, poor dentition; MMM neck - no JVD; nontender over paraspinal regions heart - RRR, s1 s2, 2/6 NAUN LSB lungs - CTA b/l abd - soft NT ND BS+ ext - no edema, pulses 2+ b/l neuro - dysarthria - no change psych - oriented to person musculo - not tender over lumbar spine; not tender over cervical spine; nontender today over expected location of suprapatellar bursa on right Results & Data Results & Data ([facility]) Vital Signs (Past 12 Hours) Vital Signs Temp Pulse Resp BP Pulse Ox O2 Del Method O2 Flow Rate 12/28/22 16:04 37.1 C 90 16 95/62 L 92 Room Air 12/28/22 12:00 36.5 C 79 18 111/72 98 Nasal Cannula 2 Laboratory Results Laboratory Results - last 24 hr 12/28/22 12/28/22 08:13 08:26 Sodium 142 Potassium 4.0 Chloride 102 Carbon Dioxide 36 H Anion Gap 4 BUN 17 Creatinine 0.90 Est Cr Clr Drug Dosing 89.7 Est GFR ( Amer) 103.5 Est GFR (Non-Af Amer) 89.3 BUN/Creatinine Ratio 18.9 Glucose 109 H POC Glucose 88 Calcium 9.9 Magnesium 2.1 Total Creatine Kinase 23 L PG Care Time/CCT Total # of Minutes Spent Total Time Spent with Patient: Total time spent is greater than 50% in coordination of care (as documented) at patient's floor/unit and/or counseling patient: Coding Level of Care Code 93965 SUB INP/OBS CARE 3/50MIN Diagnoses Schizoaffective disorder F25.9 Schizoaffective disorder type: unspecified Intellectual disability F79 Homeless Z59.00 Hypomagnesemia E83.42 Heart failure I50.9 Diabetes E11.9 COPD (chronic obstructive pulmonary disease) J44.9 Behavior disorder Impacted cerumen of both ears H61.23 Dyspnea R06.00 Hypertrophic toenail L60.2 B12 deficiency E53.8 Iron deficiency E61.1 Joint pain M25.50 (1) Schizoaffective disorder Schizoaffective disorder type: unspecified Qualified Code(s): F25.9 - Schizoaffective disorder, unspecified
[2022-12-29] MEDS: ACETAMINOPHEN 500 MG TAB PO SCH ×3 (05:51→21:18)
[2022-12-29] MEDS: MAGNESIUM OXIDE 400 MG TAB PO SCH ×2 (08:45→20:37)
[2022-12-29] MEDS: metFORMIN HCL ER 500 MG TABCR PO SCH (08:46)
[2022-12-29] MEDS: OLANZapine ZYDIS 5 MG ORALLY DIS. TAB PO SCH (08:46)
[2022-12-29] MEDS: RIVAROXABAN 10 MG TABLET PO SCH (08:46)
[2022-12-29] MEDS: DIVALPROEX DELAY RELEASE 500 MG TAB PO SCH ×2 (08:46→20:37)
[2022-12-29] MEDS: CYANOCOBALAMIN (B-12) 500 MCG TABLET PO SCH (08:46)
[2022-12-29] MEDS: SERTRALINE HCL 100 MG TABLET PO SCH (08:47)
[2022-12-29] MEDS: DICLOFENAC SOD 1% GEL 100 GM TUBE EXT SCH ×4 (08:47→20:36)
[2022-12-29] MEDS: MUPIROCIN 2% OINT 22 GM TUBE EXT SCH ×2 (08:47→20:38)
--- NOTE | 2022-12-29 10:29 | Psychiatric Progress Note ---
Date of Service December 29, 2022 Impression / Recommendations Cely Luciano is a 67 yo man from [facility], has a history of homelessness but mostly recently resided at a nursing home facility, has a history of seizures, CHF, T2DM, COPD, intellectual disability with significant dysarthria, schizoaffective disorder previously on abilify, sertraline, and lamictal (unclear if for hx of seizures vs mood stabilization) and has a variety of services in [facility] including involvement of Office of Aging, a [id number] who may be able to provide increased support in the outpatient setting, a rep payee Jesusita, and a housing case manager Isra through [employer]. His outpatient team in [facility] has deemed him capable of making his own independent decisions about where he lives and has been staying in a local hotel that is paid for by his rep payee. 12/29/22: Mood and behaviors remain stable with no SI, HI, no evidence of acute psychosis nor tiff and able to attend to his self-care needs. Based on collateral information from his outpatient housing case manager he is deemed safe and appropriate to return to the hot where he lives in [place]. His outpatient housing case manager confirmed that he stays at the hotel and does not go out nor sleep outside when it is cold, eats regular meals, has his medications delivered to the hotel, has typically twice weekly visits with his housing case manager and can use county transport to attend medical appointments. Depakote level is within the therapeutic range. Referral has been sent for [facility] behavioral health psychiatry outpatient follow-up in [place] for psychiatric medication management. Long-term goal would be for his outpatient team to consider if further support via usp or more supervised living environment may offer additional benefits for stability and support given his intellectual disability. While he has limited d ecision making capacity due to impaired insight felt to be due to his significant intellectual disability, collateral information was reassuring that he is safe and is able to provide for himself at the local hotel where he lives. While ideally he would be in a more supportive environment we have to weigh risks/benefits of removing his autonomy and his pattern has been of worsening emotional and behavioral dysregulation when he is not able to be at the hotel where he likes to live and likes being able to go outside and walk to places that he enjoys going to. No safety risks identified in plan for discharge back to the hot and this is paid for and will be extended by his rep payee (which has been typical pattern month by month). (1) Intellectual disability: (2) Schizoaffective disorder: Plan 12/29/22: Psych liason sent referral to [facility] behavioral health to set him up with outpatient psychiatry follow-up. Discussed with Dr. Arzate and Priti Aldana CM. 12/28/22: Depakote level tomorrow AM. 12/27/22: Ongoing efforts to determine what if any outpatient psych providers he has and baseline psychiatric status (?delusions/hallucinations at baseline) 12/26/22: -Increase Depakote DR to 500mg BID -Continue to attempt non-pharmacological efforts to reduce irritability: attempt distraction using food items (like ice cream or soda or things he enjoys) or TV shows he likes if restlessness increases -For behavioral emergency: 1st line: olanzapine 5mg IM (NEVER co-administer with IM or IV benzodiazepines). 2nd line: haldol 5mg IM and ativan 2mg IM (watch for possible disinhibition with ativan) 12/25/22: -Encourage CM to continue to involve his multiple outpatient supports to determine most appropriate and safe disposition plan using best substituted judgment -Encourage effort to gather external medical and psychiatric records including any past head imaging/cognitive workups/functional baseline -Start Depakote DR 250mg BID. He was unable to participation in discussion of medication risks/benefits but generally agrees to taking medication. Reviewed baseline labs of CBC with diff, LFTs, electrolytes which are stable for initiation of Depakote. -Continue olanzapine 5mg qAM and 10mg HS -Does not need safe tray, can have normal utensils and meal items -Will attempt to determine if he has any outpatient psychiatric providers in [facility] and if not will attempt to set this up if he consents to this Suicide Risk Level Suicide Risk Level: Low (q15 min observation checks) Risk Factors Assessment Male: Yes : Yes Do You Have Access To A Gun?: No Health Problems: Yes Mental Health Diagnoses: Yes Interval History Identifying Information 67 year old man from [facility] with a history of schizoaffective disorder, intellectual disability, seizure disorder, CHF, COPD, T2 DM, admitted medically after being brought to the ED for aggressive behavior at [facility]. Psychiatry was re-consulted for recommendations regarding medication management and decision making capacity about where to live. Chief Complaint "Have a good afternoon". Review of Systems Notes slept overnight, eating Subjective Subjective Patient was seen & assessed and interval progress reviewed. Slept overnight. Allowed blood work to check depakote level. This morning is sleeping but wakes easily with verbal prompting. Pleasant mood. Agrees to sign [facility] for outpatient psych referral. Tells me he ate breakfast. Physical Exam Psychiatric Orientation: alert and oriented to person; + not oriented to place and + not oriented to time Apperance: appropriately dressed Eye Contact: + fair eye contact Motor Behavior: no abnormal motor movements Speech: + abnormal rate/rhythm/volume of speech (dysarthria) Affect: euthymic affect Mood: no depressed mood and no anxious mood Thought Process: + concrete thought process Thought Content: reality based without delusions Suicidal Thoughts: denies suicidal thoughts Homicidal Thoughts: denies homicidal thoughts Hallucinations: no auditory hallucinations and no visual hallucinations Cognition: attention grossly intact; + recent memory not intact, + remote memory not intact and + language not intact Insight: + severely impaired insight Judgment: + limited judgement Vital Signs (Past 24 Hours) Last Vital Signs Temp 37.5 C 12/29/22 08:24 Pulse 96 H 12/29/22 08:24 Resp 20 12/29/22 08:24 BP 135/75 12/29/22 08:24 Pulse Ox 91 12/29/22 08:24 O2 Del Method 12/29/22 08:24 O2 Flow Rate 2 12/28/22 12:00 Results & Data ([facility]) Laboratory Results Laboratory Results - last 24 hr 12/29/22 12/29/22 08:23 08:23 POC Glucose 83 Valproic Acid 67 Current Inpatient Medications Current Inpatient Medications: Current Inpatient Medications Acetaminophen (Acetaminophen 325 Mg Tab) 650 mg PO Q6H PRN PRN Reason: Pain (1,2,3) Stop: 01/19/23 19:37 Acetaminophen (Acetaminophen 500 Mg Tab) 1,000 mg PO Q8H STEVE Stop: 01/26/23 13:59 Last Admin: 12/29/22 05:51 Dose: Not Given Albuterol (Albut/Ipratrop 3mg/0.5mg Neb 3 Ml Vial) 3 ml NEB QIDR PRN; Protocol PRN Reason: Shortness Of Breath Or Wheezing Stop: 01/17/23 06:59 Cyanocobalamin (Cyanocobalamin (B-12) 500 Mcg Tablet) 1,000 mcg PO QAM [facility] Stop: 01/23/23 10:14 Last Admin: 12/29/22 08:46 Dose: 1,000 mcg Dextrose (Dextrose 50% 50 Ml Syringe) 25 - 50 ml IV UD PRN; Protocol PRN Reason: Hypoglycemia Protocol Stop: 01/16/23 19:30 Diclofenac Sodium (Diclofenac Sod 1% Gel 100 Gm Tube) 4 gm EXT QID STEVE; Protocol Stop: 01/26/23 16:59 Last Admin: 12/29/22 08:47 Dose: 4 gm Divalproex Sodium (Divalproex Delay Release 500 Mg Tab) 500 mg PO BID [facility] Stop: 01/25/23 20:59 Last Admin: 12/29/22 08:46 Dose: 500 mg Glucagon (Glucagon For Inj 1 Mg Vial) 1 mg SQ UD PRN; Protocol PRN Reason: Hypoglycemia Protocol Stop: 01/16/23 19:30 Glucose (Glucose 40% Gel 15 Gm Tube) 15 - 30 gm PO UD PRN; Protocol PRN Reason: Hypoglycemia Protocol Stop: 01/16/23 19:30 Glucose (Glucose 10 Tab/Tube) 4 - 8 tab PO UD PRN; Protocol PRN Reason: Hypoglycemia Treatment Stop: 01/16/23 19:30 Lorazepam (Lorazepam 2 Mg/1 Ml Vial) 1 mg IV Q8H PRN PRN Reason: Anxiety/Agitation Stop: 01/16/23 19:38 Last Admin: 12/21/22 03:02 Dose: 1 mg Magnesium Oxide (Magnesium Oxide 400 Mg Tab) 400 mg PO BID [facility] Stop: 01/17/23 09:29 Last Admin: 12/29/22 08:45 Dose: 400 mg Metformin HCl (Metformin Hcl Er 500 Mg Tabcr) 500 mg PO QAM [facility] Stop: 01/26/23 08:59 Last Admin: 12/29/22 08:46 Dose: 500 mg Miscellaneous (Carbohydrates For Hypoglycemia ) 15 - 30 gm PO UD PRN PRN Reason: Hypoglycemia Protocol Stop: 01/16/23 19:30 Mupirocin (Mupirocin 2% Oint 22 Gm Tube) 1 appln EXT BID [facility] Stop: 01/22/23 20:59 Last Admin: 12/29/22 08:47 Dose: 1 appln Olanzapine (Olanzapine 10 Mg/2.1 Ml Sdv) 5 mg IM Q4H PRN PRN Reason: Agitation Stop: 01/17/23 13:14 Last Admin: 12/19/22 07:41 Dose: 5 mg Olanzapine (Olanzapine Zydis 5 Mg Orally Dis. Tab) 5 mg PO QAM STEVE Stop: 01/19/23 09:44 Last Admin: 12/29/22 08:46 Dose: 5 mg Olanzapine (Olanzapine Zydis 10 Mg Orally Dis. Tab) 10 mg PO HS STEVE Stop: 01/24/23 20:59 Last Admin: 12/28/22 20:54 Dose: 10 mg Pantoprazole Sodium (Pantoprazole 40 Mg Tab) 40 mg PO DAILY PRN PRN Reason: Acid Reflux Stop: 01/16/23 19:37 Rivaroxaban (Rivaroxaban 10 Mg Tablet) 10 mg PO DAILY STEVE Stop: 01/26/23 11:59 Last Admin: 12/29/22 08:46 Dose: 10 mg Sertraline HCl (Sertraline Hcl 100 Mg Tablet) 100 mg PO DAILY STEVE Stop: 01/17/23 08:59 Last Admin: 12/29/22 08:47 Dose: 100 mg (1) Schizoaffective disorder Schizoaffective disorder type: unspecified Qualified Code(s): F25.9 - Schizoaffective disorder, unspecified
--- NOTE | 2022-12-29 11:56 | Hospitalist Progress Note ---
Date of Service December 29, 2022 Assessment & Plan (1) Schizoaffective disorder: Plan: Came in agitated and hallucinating. Now seems much improved on the following med regimen: Appreciate psychiatric team input from Dr Abdullahi. Current med regimen - * Zyprexa 10mg HS and 5mg qam * Zyprexa 5mg IM q4h prn agitation/aggressive behavior/severe psychosis * Depakote 500mg BID -depakote level acceptable * Zoloft 100mg daily * ativan prn Lamictal discontinued. Abilify discontinued. At this time it is uncertain if his behaviors are rooted in his intellectual disability, acute delirium, chronic cognitive impairment/dementia, or from his schizoaffective disorder. When he is psychotic his symptoms are quite dramatic (talking to his sister in the room, talking to other people who are not in the room, etc). These symptoms have improved with med additions/adjustments above. psych/hospitalist team/social work - HE IS WITHOUT MEDICAL CAPACITY AND IS UNFIT TO LIVE INDEPENDENTLY. Looking for placement options (2) Intellectual disability: Plan: at least moderate OR moderate-severe I feel that he lacks medical decision making capacity Dr Abdullahi from psychiatry also feels he lacks capacity he previously was living alone there had been talk of him going to a hotel in the [place] area; he would be living alone living alone is simply not possible nor prudent; he cannot perform self-care, and again does not possess medical decision making capacity he will need placement, a POA set up for him, etc appreciate psych assistance (3) Homeless: Plan: Case management working on housing options for him post-d/c. Due to lack of decision making capacity he cannot be placed in an independent living situation as that would likely lead to harm and unsafe environment for him. he will need placement but that may prove very difficult. (4) Heart failure: Plan: acute/chronic HFpEF echo findings from this admission reviewed s/p lasix last week continues to be compensated with no pulmonary complaints and stable O2 sats in RA (5) Diabetes: Plan: Hemoglobin A1c is only 6.4%. Very mild T2DM. BSGs are excellent. Started metformin 500mg daily for DM. stopped novolog. Check BSG only once a day to minimize the risk of agitating him. (6) COPD (chronic obstructive pulmonary disease): Plan: by report no symptoms/ signs of such at this time breathing improved with gentle diuresis (7) Impacted cerumen of both ears: Plan: s/p debrox solution - 5cc BID to both canals x 3 days - has completed such will need irrigation as outpatient (8) Dyspnea: Plan: likely due to CHF can't rule out COPD contributing but less likely dyspnea resolved with diuresis (9) Hypertrophic toenail: Plan: x 10 he self-removed the right 4th toenail [address] Felix Ashford from podiatry provided nail care (trimmed all toenails) (10) B12 deficiency: Plan: cont B12 1000mcg daily B12 level = 157 (11) Iron deficiency: Plan: venofer 200mg on 12/24/22 venofer 300mg on 12/25/22 will obtain fecal occult blood when able ferritin level only 29 (12) Joint pain: Plan: patient complaining of pain in various areas including neck, l-spine, right leg, right knee area, etc I was uncertain which area was giving him the most pain I obtained x-rays of c-spine, l-spine, and R knee no fractures no serious pathology CPK normal replace the low B12 etiology of acute onset of these pains? try voltaren gel 4gm qid to R knee, l-spine, etc Plan DVT proph - continue xarelto 10mg once daily in lieu of SC injections (less injections = less provocation of agitation) appreciate psych assistance Admission and Anticipated Discharge Date Admission Date: December 20, 2022 Subjective Pt has no complaints. Says he ate breakfast. He is moving is bowels. Says he always has pain in his right leg but not new. He would not allow me to examine him. I then watched him walk very quickly with a normal gait to the bathroom. Physical Exam Constitutional: WD/WN, vitals as above Results & Data Results & Data ([facility]) Vital Signs (Past 12 Hours) Vital Signs Temp Pulse Resp BP Pulse Ox O2 Del Method 12/29/22 08:24 37.5 C 96 H 20 135/75 91 Room Air Laboratory Results 12/29/22 12/29/22 Range/Units 08:23 08:23 POC Glucose 83 (70-99) mg/dl Valproic Acid 67 (50-100) mcg/ml I reviewed the depakote level PG Care Time/CCT Total # of Minutes Spent Total Time Spent with Patient: Total time spent is greater than 50% in coordination of care (as documented) at patient's floor/unit and/or counseling patient: Coding Level of Care Code 60902 SUB INP/OBS CARE Diagnoses Schizoaffective disorder F25.9 Schizoaffective disorder type: unspecified Intellectual disability F79 Homeless Z59.00 Heart failure I50.9 Diabetes E11.9 COPD (chronic obstructive pulmonary disease) J44.9 Impacted cerumen of both ears H61.23 Dyspnea R06.00 Hypertrophic toenail L60.2 B12 deficiency E53.8 Iron deficiency E61.1 Joint pain M25.50 (1) Schizoaffective disorder Schizoaffective disorder type: unspecified Qualified Code(s): F25.9 - Schizoaffective disorder, unspecified
[2022-12-30] MEDS: ACETAMINOPHEN 500 MG TAB PO SCH ×2 (05:03→12:51)
[2022-12-30] MEDS: CYANOCOBALAMIN (B-12) 500 MCG TABLET PO SCH (09:02)
[2022-12-30] MEDS: SERTRALINE HCL 100 MG TABLET PO SCH (09:02)
[2022-12-30] MEDS: MUPIROCIN 2% OINT 22 GM TUBE EXT SCH (09:02)
[2022-12-30] MEDS: DICLOFENAC SOD 1% GEL 100 GM TUBE EXT SCH ×2 (09:02→12:51)
[2022-12-30] MEDS: DIVALPROEX DELAY RELEASE 500 MG TAB PO SCH (09:03)
[2022-12-30] MEDS: MAGNESIUM OXIDE 400 MG TAB PO SCH (09:03)
[2022-12-30] MEDS: RIVAROXABAN 10 MG TABLET PO SCH (09:03)
[2022-12-30] MEDS: OLANZapine ZYDIS 5 MG ORALLY DIS. TAB PO SCH (09:03)
[2022-12-30] MEDS: metFORMIN HCL ER 500 MG TABCR PO SCH (09:03)
--- NOTE | 2022-12-30 13:07 | Discharge Summary ---
Date of Service December 30, 2022 Admission HPI Per Admitting Provider Mustapha is a 67 year old male with a PMH significant for CHF, COPD, DM II, schizoaffective disorder, intellectual disability who presented to the [facility] ED on 12/17/22 from [facility] for a 302 evaluation. Per the ED staff, the staff at [facility] spoke to the patient earlier today regarding getting a roommate. The patient reportedly became incredibly agitated, verbally abusing, was throwing objects at staff and threatened to kill himself with a gun. In the ED, the patient was found to be afebrile hemodynamically stable, stable on RA. CBC shows a normal WBC, stable Hgb, and platelet count, CMP shows stable cr at 0.9 with a mag of 1.4 but otherwise stable electrolytes, glucose of 144, LFTs WNL, TSH WNL, UA with trace leukocyte esterase, 5-10 WBCs, and negative bacteria, urine tox screen and covid negative. The ED staff did not think that the patient was suicidal or homicidal and attempted to send the patient back to [facility] but they refused to take the patient back. CM will continue to help with the current situation and they will be filling a complaint with the Department of Health. Prior to admission the patient was given 50 mg IM benadryl, 5 mg IM haldol, 2 mg IV ativan, and 2 bags of IV magnesium. At the time of the exam the patient was sitting comfortably on the side of his bed in no acute distress. History is difficult to obtain due to the patient's baseline mental status. He states that he was sent to the ER because he woke up in another room and got angry. He states that he is homeless and has nowhere else to go. He then told me that both of his parent's passed but then came back to life years ago. He spoke about his mom "walking through [place]". I asked him if felt as though he was going to hurt himself or hurt others he said "no" to both. He had no complaints at the time of the exam. I asked him to be knd to our staff and we will work to find a safe place for him to go and he was in agreement. The patient did mention that he gets seizures and takes "seizure medication" but is unsure of when his last seizure was. Please refer to Dr. Ambrocio's attestation for any changes to the treatment plan Principal Diagnosis Acute psychosis Discharge Exam Constitutional WD/WN, vitals as above Eyes + anicteric sclerae Respiratory normal respiratory effort Discharge Data Allergies Allergy/AdvReac Type Severity Reaction Status Date / Time No Known Allergies Allergy Unverified 12/17/22 19:54 Consultations 12/17/22 17:24 ED Decision to Admit Stat 12/17/22 19:43 Consult Psychiatry Routine 12/24/22 17:18 Consult Podiatry Routine Ordered Studies 12/17/22 12:25 CT head/brain wo con Stat Hospital Course (1) Schizoaffective disorder: Came in agitated and hallucinating. Now seems much improved on the following med regimen: Appreciate psychiatric team input from Dr Abdullahi. Current med regimen - * Zyprexa 10mg HS and 5mg qam * Zyprexa 5mg IM q4h prn agitation/aggressive behavior/severe psychosis * Depakote 500mg BID -depakote level acceptable * Zoloft 100mg daily * ativan prn Lamictal discontinued. Abilify discontinued. At this time it is uncertain if his behaviors are rooted in his intellectual disability, acute delirium, chronic cognitive impairment/dementia, or from his schizoaffective disorder. When he is psychotic his symptoms are quite dramatic (talking to his sister in the room, talking to other people who are not in the room, etc). These symptoms have improved with med additions/adjustments above. psych/hospitalist team/social work - with collateral info provided by his pillowcase folder, he is deemed safe to be discharged back to the [facility] where he was previously living in [place]. (2) Intellectual disability: Plan: at least moderate OR moderate-severe (3) Homeless: Plan: lives in a motel (4) Heart failure: Plan: acute/chronic HFpEF echo findings from this admission reviewed s/p lasix last week-can use prn leg swelling after discharge continues to be compensated with no pulmonary complaints and stable O2 sats in RAwhen awake, needs O2 only qhs (5) Diabetes: Plan: Hemoglobin A1c is only 6.4%. Very mild T2DM. BSGs are excellent. Started metformin 500mg daily for DM. (6) COPD (chronic obstructive pulmonary disease): Plan: by report no symptoms/ signs of such at this time breathing improved with gentle diuresis (7) Impacted cerumen of both ears: Plan: s/p debrox solution - 5cc BID to both canals x 3 days - has completed such will need irrigation as outpatient (8) Dyspnea: Plan: likely due to CHF can't rule out COPD contributing but less likely dyspnea resolved with diuresis (9) Hypertrophic toenail: Plan: x 10 he self-removed the right 4th toenail [address] Felix Ashford from podiatry provided nail care (trimmed all toenails) (10) B12 deficiency: Plan: cont B12 1000mcg daily B12 level = 157 (11) Iron deficiency: Plan: venofer 200mg on 12/24/22 venofer 300mg on 12/25/22 ferritin level only 29 f/u with PCP (12) Joint pain: Plan: patient complaining of pain in various areas including neck, l-spine, right leg, right knee area, etc I was uncertain which area was giving him the most pain I obtained x-rays of c-spine, l-spine, and R knee no fractures no serious pathology CPK normal replace the low B12 etiology of acute onset of these pains? try voltaren gel 4gm qid to R knee, l-spine, etc Plan DVT proph - xarelto 10mg once daily in lieu of SC injections (less injections = less provocation of agitation) but can be stopped on discharge appreciate psych assistance Dispo-dc to [facility] with caretakers f/u with Psych as outpt has been arranged (2) Intellectual disability: (3) Homeless: (4) Hypomagnesemia: (5) Heart failure: (6) Diabetes: (7) COPD (chronic obstructive pulmonary disease): (8) Behavior disorder: (9) Impacted cerumen of both ears: (10) Dyspnea: (11) Hypertrophic toenail: (12) B12 deficiency: (13) Iron deficiency: (14) Joint pain: Total Time Total Time Spent Total Time Spent (In Minutes): 35 min Discharge Plan Discharge Items Patient Disposition: Home - Home Health Services Reason For Visit: 302 EVALUATION Discharge Diagnosis: Psychosis Activity: Resume your previous activity Bathing: No limitations Exercise/Sports: As tolerated Non-emergency contact: Primary Care Provider and Psychiatrist Call non-emergency contact if: you have any medication questions and your symptoms worsen Follow-up/Referrals: [facility] [Other] - 01/20/23 11:00 am Diet: Carb Consistent or DM2 Addtl Attending Provider Instructions: You were admitted for agitation and psychosis. Your medications were changed a bit so please follow the medication list carefully once you return home. Follow up with the Psychiatrist as arranged for you. You were also found to be deficient in vitamin B12 and this was added for you to your medications. You were also iron deficient and had 2 treatments with IV iron while you were here. Please follow up with your primary care doctor within 1 week after discharge. Pending Studies at Discharge: No Stand-Alone Forms: [facility], Smoking Cessation Medications and DC Order Prescriptions: New diclofenac sodium [Voltaren Arthritis Pain] 1 % Gel 4 g EXT QID Qty: 100 0RF Rx Instructions: apply to right knee at site of pain divalproex 500 mg Tablet,Delayed Release (Dr/Ec) 500 mg PO BID Qty: 60 0RF olanzapine 10 mg Tablet,Disintegrating 10 mg PO HS Qty: 30 0RF olanzapine 5 mg Tablet,Disintegrating 5 mg PO QAM Qty: 30 0RF magnesium oxide 400 mg (241.3 mg magnesium) Tablet 400 mg PO BID Qty: 60 0RF metformin 500 mg Tablet Extended Release 24 Hr 500 mg PO QAM Qty: 30 0RF cyanocobalamin (vitamin B-12) 1,000 mcg capsule 1,000 mcg PO DAILY Qty: 30 0RF Continued pantoprazole 40 mg tablet,delayed release (DR/EC) 40 mg PO 1XD PRN (Reason: Acid Reflux) Glucagon Emergency Kit 1 applicator IM Q15M PRN (Reason: hypoglycemia <60) Insta-Glucose 1 applicator PO PRN (Reason: Hypoglycemia) Milk of Magnesia 1,200 mg/15 ml liquid 30 ml PO PRN (Reason: Constipation) Rx Instructions: 30ml po on morning of 3rd day with no bowel movement nicotine 14 mg/24 hr 1 patch 1XD Rx Instructions: one patch per day for 2 weeks; end on 12/20/22 acetaminophen tablet 650 mg PO Q6H MDD 3000mg PRN (Reason: Pain) Qty: 30 0RF Changed sertraline 100 mg tablet 100 mg PO DAILY Qty: 30 0RF furosemide 20 mg tablet 20 mg PO DAILY PRN (Reason: for leg swelling) Qty: 30 0RF Discontinued Acetaminophen Pain Relief tablet 650 mg PO Q6 MDD 3000 mg PRN (Reason: Fever) lamotrigine 25 mg tablet 50 mg 1XD Rx Instructions: Lamictal XR aripiprazole 5 mg tablet 5 mg PO QAM Dulcolax Stool Softener (dss) suppository See Rx Instructions .ROUTE .COMPLEX Rx Instructions: 10 mg rectally in the evening of the third day with no BM Discharge Orders: Discharge Order (Routine); Ordered 12/30/22 Ordered By: Carmela Gonzalez/Other Patient Handouts: Managing Type 2 Diabetes Admission Data Admit Date/Time: 12/20/22 09:36 Attending Provider: Carmela Arzate Admit Provider: Js Ambrocio Primary Care Provider: [facility] Other Providers: Js Ambrocio ; Kenia Abdullahi ; Elif Dick ; Wayne Gonsales ; Felix Ashford Coding Level of Care Code HOSP INP/OBS DISCH >30 MIN Diagnoses Schizoaffective disorder F25.9 Schizoaffective disorder type: unspecified Intellectual disability F79 Homeless Z59.00 Hypomagnesemia E83.42 Heart failure I50.9 Diabetes E11.9 COPD (chronic obstructive pulmonary disease) J44.9 Behavior disorder Impacted cerumen of both ears H61.23 Dyspnea R06.00 Hypertrophic toenail L60.2 B12 deficiency E53.8 Iron deficiency E61.1 Joint pain M25.50
--- NOTE | 2022-12-31 07:54 | Orthopedic Consultation ---
Date of Consultation December 25, 2022 Assessment & Plan (1) Diabetes: Patient seen, evaluated, and treated. Significant time was spent in [id number] discussion reviewing symptoms, diagnosis, and treatment, both conservative and nonconservative, and application treatment. Reviewed diabetic foot care with alida nguyen. Discussed need to check their feet daily. Patient advised to wash their feet every day. Wear shoes and socks at all times. Sharp debridement of all ten nail plates in thickness and in length shaping and contouring the nails without incident. Patient tolerated procedure well. No postprocedure pain. History of Present Illness Attending Physician: Js Koo History of Present Illness Patient seen for painful feet bilateral. Patient has history of mental health disease. Allergies Allergy/AdvReac Type Severity Reaction Status Date / Time No Known Allergies Allergy Unverified 12/17/22 19:54 Home Medications Medication Instructions Recorded Confirmed Type Glucagon Emergency Kit 1 applicator IM Q15M PRN 12/17/22 12/17/22 History hypoglycemia <60 Insta-Glucose 1 applicator PO PRN Hypoglycemia 12/17/22 History Milk of Magnesia 30 ml PO PRN Constipation 12/17/22 12/17/22 History nicotine 1 patch 1XD 12/17/22 12/17/22 History pantoprazole 40 mg tablet,delayed 40 mg PO 1XD PRN Acid Reflux 12/17/22 12/17/22 History release acetaminophen 650 mg PO Q6H PRN Pain #30 Tabs 12/30/22 12/17/22 Rx cyanocobalamin (vitamin B-12) 1,000 mcg PO DAILY #30 caps 12/30/22 Rx 1,000 mcg capsule diclofenac sodium 1 % topical gel 4 g EXT QID #100 grams 12/30/22 Rx (Voltaren Arthritis Pain) divalproex 500 mg tablet,delayed 500 mg PO BID #60 tabs 12/30/22 Rx release furosemide 20 mg tablet 20 mg PO DAILY PRN for leg 12/30/22 12/17/22 Rx swelling #30 tabs magnesium oxide 400 mg (241.3 mg 400 mg PO BID #60 tabs 12/30/22 Rx magnesium) tablet metformin 500 mg tablet,extended 500 mg PO QAM #30 tabs 12/30/22 Rx release 24 hr olanzapine 10 mg disintegrating 10 mg PO HS #30 tabs 12/30/22 Rx tablet olanzapine 5 mg disintegrating 5 mg PO QAM #30 tabs 12/30/22 Rx tablet sertraline 100 mg tablet 100 mg PO DAILY #30 tabs 12/30/22 Rx Patient History Medical History COPD (chronic obstructive pulmonary disease) Diabetes Heart failure Intellectual disability Schizoaffective disorder Social History (Updated 12/17/22 @ 12:35 by Flaco Guerin) Smoking Status: Smoker, status unknown Preferred Language: Albanian Communication Ability: Effective Feels Safe at Home: Declines to Answer Assistive Devices: None Review of Systems Review of Systems: All systems reviewed & are unremarkable except as noted in HPI & below Physical Exam Physical Exam: gen - morbidly obese, dysmorphic in appearance, very difficult to understand his speech; responding to internal stimuli mouth - MMM; poor dentition heart - RRR, s1 s2, 2/6 systolic murmur LSB lungs - decreased BS bases, otherwise clear b/l today; no wheezes abd - soft NT ND BS+ ext - no edema b/l, pulses 2+ b/l Integument: Atrophic changes noted legs and feet. Skin is thin, shiny, dry, flaky. Nails are thickened, elongated, dystrophic, hypertrophic, with subunqual debris x10. Nails are ingrown both medial and laterally, and discolored. Results & Data ([facility]) Vital Signs (Past 12 Hours) Vital Signs Temp Pulse Resp BP Pulse Ox O2 Del Method 12/25/22 20:48 36.6 C 96 H 20 119/81 94 Room Air 12/25/22 14:42 36.6 C 99 H 18 119/79 95 Room Air 12/25/22 10:17 36.8 C 89 16 110/72 95 Room Air
== END 2022-12-30 14:00 | disposition home health service (06) | DRG 885 ==
LOC: EDINP 11:40 → ED 11:40 → SUATTDRO 19:09 → 3W 19:49 → SUATTDRO 12-20 09:36